=== PATIENT | female | born 1960 | race Caucasian/White ===

== ENCOUNTER → 2017-10-09 10:49 | Outpatient (CLI) | payer MEDICAID, SELFPAY ==
--- NOTE | 2017-10-09 10:55 | CA_ITS ---
PROCEDURE: 2-D M-mode and color Doppler study INDICATIONS FOR THE TEST: Chest pain COPD Heart Murmur Tobacco Smoking Palpitations Fatigue Syncope EdemaX HypertensionXDiabetes Mellitus Rheumatic Fever SOB GILES Obesity Hyperlipidemia Family History HD Additional History KNOWN BICUSPID AV,MVP PATIENT INFORMATION HEIGHT: 63 WEIGHT:163 GENDER: Female B/P:170/96 2-D/M-MODE INTERPRETATION: 2-D MEASUREMENTS OBSERVED VALUES IN CMS Right Ventricular Dimension (RVDd) 2.9 Interventricular Septum (Thickness)(IVsd) .9 Left Ventricular Internal Dimensions(LVIDd) 5.0 Left Ventricular Posterior Wall (Thickness)(LVPWd) 1.1 Aortic Root 2.9 Aortic Cusp Separation 2.1 Left Atrial Dimensions (LAD) 2.9 2D 1. Left atrium is mildly enlarged, left ventricle is normal size, there is mild concentric left ventricular hypertrophy, visually estimated ejection fraction 55% with no obvious regional wall motion abnormality. 2. The right atrium and right ventricle are mildly enlarged with normal contractility. 3. The aortic valve is bicuspid. 4. The mitral valve leaflets are mildly myxomatous, there is mild prolapse of both anterior and posterior mitral leaflet. 5. The tricuspid valve is grossly normal. 6. No significant pericardial effusion noted. 7. The pulmonic valve is poorly visualized. DOPPLER INTERROGATION: Doppler interrogation of the aortic, mitral and tricuspid valvular presence of mild mitral and tricuspid regurgitation, grade 1 diastolic dysfunction seen, calculated right ventricular systolic pressure is 45 to 50 mmHg consistent with moderate pulmonary hypertension, tissue Doppler is not indicated of raised left atrial pressure. CONCLUSION: 1. Mildly enlarged left atrium, normal left ventricular size, mild concentric left ventricular hypertrophy, visually estimated ejection fraction 55% with no obvious regional wall motion abnormality, grade 1 diastolic dysfunction seen with tissue Doppler evidence of raised left atrial pressure. 2. 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 3. Mildly enlarged right ventricle with normal contractility. 4. Mild tricuspid regurgitation calculated right ventricular systolic pressure approximately 45 to 50 mmHg consistent with the moderate pulmonary hypertension. 5. No significant pericardial effusion noted.
== END ==
PROVIDERS: Family Provider Family Medicine; PCP Family Medicine; Visit Provider Family Medicine
DX: Q23.1 Congenital insufficiency of aortic valve (principal); I34.1 Nonrheumatic mitral (valve) prolapse; R60.0 Localized edema
CPT/HCPCS: 93306

== ENCOUNTER → 2018-01-22 09:52 | Outpatient (CLI) | payer MEDICAID, SELFPAY ==
--- NOTE | 2018-01-22 10:13 | XR_ITS ---
XR DEXA axial skeleton HISTORY: ITS.REASON: LOW BACK PAIN,H/O FX,SPINAL STENOSIS ORDERING PHYSICIAN: Aminta Parker MD PATIENT AGE: 57 years FINDINGS: The BMD measured at the Right femoral neck is 0.838 g/cm squared with a T score of -1.4. This is considered Osteopenic according to the World Health Organization criteria. Fracture risk is Moderate. Treatment is advised. IMPRESSION: Osteopenia with moderate fracture risk. Treatment recommended. Recommend follow up exam january 2020
== END ==
PROVIDERS: Family Provider Family Medicine; PCP Family Medicine; Visit Provider Family Medicine
DX: M54.5 Low back pain (principal)
CPT/HCPCS: 77080

== ENCOUNTER → 2018-08-09 16:43 | Outpatient (CLI) | payer MEDICAID, SELFPAY ==
--- NOTE | 2018-08-09 16:53 | XR_ITS ---
EXAM: XR lumbar spine min 4V HISTORY: ITS.REASON: ACUTE MIDLINE LOW BACK PAIN WITH RIGHT SIDED SCIATICA ORDERING PHYSICIAN: TANNER Whaley PATIENT AGE: 58 years COMPARISON: None FINDINGS: There is mild degenerative disc disease at L4-L5 with 5 mm anterolisthesis of L4. No fracture or dislocation. No lytic or blastic change. Small calcific density is present superior to the L4 facet projecting within the foramen on the lateral view. IMPRESSION: Degenerative disc disease L4-L5 with 5 mm spondylolisthesis of L4 as described above. The degenerative disc disease may be slightly worse compared to the previous exam. Indeterminate calcification overlying the foramen at L4-L5 which may be better evaluated with CT or MRI
== END ==
PROVIDERS: PCP Family Medicine; Visit Provider Physician Assistant
DX: M54.41 Lumbago with sciatica, right side (principal)
CPT/HCPCS: 72110

== ENCOUNTER → 2018-08-22 07:36 | Outpatient (CLI) | payer MEDICAID, SELFPAY ==
--- NOTE | 2018-08-22 08:01 | MR_ITS ---
MR lumbar spine wo con, MR 3-d myelogram/MRCP HISTORY: PT states low back pain X years. Pain has gotten worse. Bilateral leg pain, LT leg numbness and trouble lifting leg. ITS.REASON: ACUTE MIDLINE LOW BACK PAIN W/RIGHT SIDE SCIATICA ORDERING PHYSICIAN: Aminta Parker MD PATIENT AGE: 58 years Comparison: X-RAY 08/09/18. MRI 07/26/16 TECHNIQUE: Standard multiplanar multiecho sequences are performed without contrast. 3-D MIP and myelographic images are also rendered and reviewed FINDINGS: The spinal cord ends at the T12-L1 level. T11-T12, T12-L1, L1-L2, L2-L3, and L3-L4 have an unremarkable appearance. There is mild anterolisthesis of L4 on L5 of 5 mm with a prominent concentric bulging disc with facet and ligamentum flavum hypertrophy with moderate to severe bilateral foraminal narrowing right greater than left. There is facet hypertrophic change with a small amount fluid in the facet joints with moderate bilateral lateral recess narrowing. There is a small broad-based central disc herniation with superior extrusion which is smaller on today's study. The previously noted extruded disc on the left is less apparent on today's exam. There is canal stenosis of 8 mm along with bilateral lateral recess narrowing. L5-S1: Unremarkable. IMPRESSION: Mild anterolisthesis of L4 on L5 of 5 mm with a prominent concentric bulging disc with facet and ligamentum flavum hypertrophy with moderate to severe bilateral foraminal narrowing right greater than left. There is facet hypertrophic change with a small amount fluid in the facet joints with moderate bilateral lateral recess narrowing. There is a small broad-based central disc herniation with superior extrusion which is smaller on today's study. The previously noted extruded disc on the left is less apparent on today's exam. There is canal stenosis of 8 mm along with bilateral lateral recess narrowing.
== END ==
PROVIDERS: PCP Family Medicine; Visit Provider Family Medicine
DX: M54.41 Lumbago with sciatica, right side (principal)
CPT/HCPCS: 72148; 76376

== ENCOUNTER → 2019-01-16 12:05 | Outpatient (CLI) | payer MEDICAID, SELFPAY ==
--- NOTE | 2019-01-16 12:13 | XR_ITS ---
XR sinus min 3V CLINICAL INDICATION: Right-sided facial numbness ITS.REASON: ALLERGIC RHINITIS ORDERING PHYSICIAN: Kimmy Carvalho APRN PATIENT AGE: 58 years Comparison: None FINDINGS: No sinus air-fluid level or significant mucosal thickening. No bony abnormalities apparent. IMPRESSION: Negative paranasal sinuses
== END ==
PROVIDERS: PCP Family Medicine; Visit Provider Nurse Practitioner Family
DX: J30.9 Allergic rhinitis, unspecified (principal)
CPT/HCPCS: 70220

== ENCOUNTER → 2019-11-15 10:51 | Outpatient (CLI) | payer OTHER, SELFPAY ==
[2019-11-15 10:57] LABS: Adenovirus F 40/41, stool Not Detected (NotDetected); Astrovirus Not Detected (NotDetected); Campylobacter Not Detected (NotDetected); Clostridium Difficile A/B, PCR Not Detected (NotDetected); Cryptosporidium Not Detected (NotDetected); Cyclospora Cayetanesis Not Detected (NotDetected); Entamoeba histolytica Not Detected (NotDetected); Enteroaggregative E coli Not Detected (NotDetected); Enteropathogenic E coli Not Detected (NotDetected); Enterotoxigenic E coli Not Detected (NotDetected); Giardia lamblia Not Detected (NotDetected); Norovirus Not Detected (NotDetected); Plesimonas Shigalloides, PCR Not Detected (NotDetected); Rotavirus A Not Detected (NotDetected); Salmonella, PCR Not Detected (NotDetected); Sapovirus Not Detected (NotDetected); Shiga-like toxin E coli Not Detected (NotDetected); Shigella Enterovasive E coli Not Detected (NotDetected); Vibrio Cholerae Not Detected (NotDetected); Vibrio, PCR Not Detected (NotDetected); Yersinia Entercolitica, PCR Not Detected (NotDetected)
== END ==
PROVIDERS: Visit Provider Physician Assistant
DX: R19.7 Diarrhea, unspecified (principal)
CPT/HCPCS: 87507

== ENCOUNTER → 2020-08-13 11:04 | Outpatient (CLI) | payer OTHER, SELFPAY ==
[2020-08-13 14:22] LABS: Basophils # 0.1 K/mm3 (0-0.2); Basophils % 0.7 % (0.1-2.0); Eosinophils # 0.1 K/mm3 (0.0-0.4); Eosinophils % 1.1 % (0.1-12.0); Hematocrit 43.4 % (37.0-47.0); Hemoglobin 13.7 g/dL (12.2-16.2); Lymphocytes # 4.2 K/mm3 (0.7-4.5); Lymphocytes % 57.3 % (10-50); Mean Corpuscular HGB Conc 31.6 g/dL (31.8-35.4); Mean Corpuscular Hemoglobin 30.1 pg (27.0-31.2); Mean Corpuscular Volume 95.2 fl (81-99); Mean Platelet Volume 10.2 fl (7.4-10.4); Monocytes # 0.5 K/mm3 (0.1-1.0); Monocytes % 6.5 % (1.7-9.3); Neutrophils # 2.5 K/mm3 (1.8-7.8); Neutrophils % 34.4 % (37.0-80.0); Platelet Count 324 K/mm3 (142-424); Red Blood Count 4.56 M/mm3 (4.20-5.40); Red Cell Distribution Width 15.1 % (11.5-17.5); White Blood Count 7.4 K/mm3 (4.8-10.8)
[2020-08-13 14:23] LABS: MANUAL DIFFERENTIAL MANUAL DIFFERENTIAL (MANUAL DIFF)
[2020-08-13 16:44] LABS: Lymphocytes % 56 % (10-50); Monocytes % 6 % (2-9); Neutrophils % 38 % (42-76); Platelet Estimate Normal; RBC Morphology Normal; Total Cells Counted 100
[2020-08-14 13:34] LABS: Covid-19 Nasal PCR Sendout Lex NOT DETECTED
== END ==
PROVIDERS: PCP Physician Assistant; Visit Provider Physician Assistant
DX: Z03.818 Encounter for observation for suspected exposure to other biological agents ruled out (principal)
CPT/HCPCS: 36415; 85007; 85025; U0004

== ENCOUNTER → 2020-11-12 10:12 | Outpatient (CLI) | payer OTHER, SELFPAY ==
--- NOTE | 2020-11-12 10:18 | MM_ITS ---
PROCEDURE: MM DIG SCREENING MAMM BI W/CAD Digital Breast Tomosynthesis Included CLINICAL INDICATION: SCREENING There is a history of breast cancer in the patient's mother diagnosed in 30s. The patient currently is on estrogen. COMPARISON: MG DMSB DIG MAMM-SCREEN [place] from 05/19/2014 MG DMSB DIG MAMM-SCREEN [place] from 07/06/2015 MG DMSB DIG MAMM-SCREEN [place] W/CAD from 03/23/2017 TECHNIQUE: Standard CC and MLO images and 3D Tomosynthesis was obtained. R2 CAD reviewed. FINDINGS: Moderate scattered fibroglandular densities are seen in both breasts and the findings are bilateral and symmetrical. There is a stable small asymmetric density central portion right breast unchanged from studies dating back to 05/19/2014. There is no suspicious lesion and no suspicious microcalcifications. IMPRESSION: Moderate breast density with no suspicious lesions seen BI-RAD Category: 1 Negative FOLLOW-UP: 1YR 1 Year Follow-up (A letter has been sent to the patient regarding results of the study.) Dictated by: Dr. Dayron Siu MD 11/17/2020 11:38 Dr. Dayron Siu MD in [place] 11/17/2020 11:38
[2020-11-12 12:25] LABS: Alanine Aminotransferase 11 U/L (12-78); Albumin Level 4.2 g/dl (3.5-5.0); Albumin/Globulin Ratio 1.4 (1.1-1.8); Alkaline Phosphatase 98 U/L (38-126); Anion Gap 13.2 mEq/L (5-15); Aspartate Amino Transferase 20 U/L (14-36); Bilirubin,Total 0.5 mg/dl (0.2-1.3); Blood Urea Nitrogen 10 mg/dl (7-17); Calcium 9.6 mg/dl (8.4-10.2); Carbon Dioxide 29 mmol/L (22.0-30.0); Chloride 97 mmol/L (98-107); Cholesterol 226 mg/dl (140-200); Estimated Glomerular Filt Rate 63 ml/min (>60); GFR (African American) 77 ML/MIN (>60); Glucose 98 mg/dl (74-100); HDL Cholesterol 76 mg/dl (40-60); Potassium 4.2 mmoL/L (3.5-5.1); Sodium 135 mmol/L (136-145); Total Protein,Serum 7.2 g/dl (6.3-8.2); Triglycerides 339 mg/dl (30-150); VLDL Cholesterol 68 mg/dL (0-40)
[2020-11-12 12:36] LABS: Direct LDL Cholesterol 102.89 mg/dL (100-129)
[2020-11-12 12:56] LABS: Thyroid Stimulating Hormone 1.31 uIU/mL (0.465-4.68)
== END ==
PROVIDERS: PCP Physician Assistant; Visit Provider Family Medicine
DX: Z12.31 Encounter for screening mammogram for malignant neoplasm of breast (principal); E03.9 Hypothyroidism, unspecified; I10 Essential (primary) hypertension
CPT/HCPCS: 36415; 77063; 77067; 80053; 80061; 84443

== ENCOUNTER 2021-01-07 19:35 | Emergency (ER) | payer OTHER, SELFPAY ==
[2021-01-07 19:36] VITALS: BP 186/98; PULSE 68; RESP 19; TEMP 36.9; O2SAT 99; BMI 29.5
--- NOTE | 2021-01-07 19:45 | ECG_ITS ---
APPROVED REPORT Exam: Resting ECG HR:67 bpm ECG Measurements Heart Rate 67 AXES AZ 176 P 57 QRSd 84 QRS 29 QT 404 T 25 QTc 426 Conclusion Normal sinus rhythm Nonspecific ST abnormality Abnormal ECG Electronically signed by : Yovany Gary, 01/08/2021 10:35:44
--- NOTE | 2021-01-07 19:45 | XR_ITS ---
PROCEDURE INFORMATION: Exam: XR Chest Exam date and time: 01/07/21 07:45 PM Age: 60 years old Clinical indication: Shortness of breath and other: Hypertension, frontal headache; Patient HX: Shortness of breath, high blood pressure. ; Additional info: SOA TECHNIQUE: Imaging protocol: XR of the chest. Views: 1 view. COMPARISON: No relevant prior studies available. FINDINGS: Lungs: Hyperexpanded. No consolidation. Pleural spaces: Unremarkable. No pleural effusion. No pneumothorax. Heart/Mediastinum: Unremarkable. No cardiomegaly. Bones/joints: Unremarkable. IMPRESSION: Hyperexpanded lungs without infiltrate.
--- NOTE | 2021-01-07 19:46 | CT_ITS ---
PROCEDURE INFORMATION: Exam: CT Angiography Neck With Contrast Exam date and time: 01/07/21 07:46 PM Age: 60 years old Clinical indication: Headache and other: Elevated BP; Patient HX: Frontal headache and elevated BP TECHNIQUE: Imaging protocol: Computed tomography angiography of the neck with contrast. 3D rendering (Not supervised by radiologist): MIP and/or 3D reconstructed images were created by the technologist. Radiation optimization: All CT scans at this facility use at least one of these dose optimization techniques: automated exposure control; mA and/or kV adjustment per patient size (includes targeted exams where dose is matched to clinical indication); or iterative reconstruction. Contrast material: ISOVUE 370; Contrast volume: 100 ml; Contrast route: INTRAVENOUS (IV); COMPARISON: CTAN CTA-NECK 02/19/16 01:25 PM FINDINGS: Right common carotid artery: No stenosis. No dissection or occlusion. Right internal carotid artery: No stenosis of the extracranial segment. No dissection or occlusion. Right external carotid artery: No occlusion or stenosis of the origin. Right vertebral artery: No stenosis. No dissection or occlusion. Left common carotid artery: No stenosis. No dissection or occlusion. Left internal carotid artery: No stenosis of the extracranial segment. No dissection or occlusion. Left external carotid artery: No occlusion or stenosis of the origin. Left vertebral artery: No stenosis. No dissection or occlusion. Bones/joints: No acute fracture. Soft tissues: Normal. No significant soft tissue swelling. IMPRESSION: No stenosis or occlusion. REFERENCES: NASCET CRITERIA. The degree of internal carotid artery stenosis is based on NASCET criteria. Normal is no stenosis. Mild is less than 50% stenosis. Moderate is 50-69% stenosis. Severe is 70% to 99% stenosis. Total occlusion is no detectable patent lumen.
--- NOTE | 2021-01-07 19:46 | CT_ITS ---
PROCEDURE INFORMATION: Exam: CT Head Without Contrast Exam date and time: 01/07/21 07:46 PM Age: 60 years old Clinical indication: Pain; Headache not specified; Patient HX: Headache and elevatd BP TECHNIQUE: Imaging protocol: Computed tomography of the head without contrast. Radiation optimization: All CT scans at this facility use at least one of these dose optimization techniques: automated exposure control; mA and/or kV adjustment per patient size (includes targeted exams where dose is matched to clinical indication); or iterative reconstruction. COMPARISON: DX (SKULL BOATENG, FACE, SKULL BOATENG) 01/16/19 12:17 PM FINDINGS: Brain: Normal. No hemorrhage. Unremarkable white matter. No mass effect. Cerebral ventricles: No ventriculomegaly. Bones/joints: Unremarkable. No acute fracture. Paranasal sinuses: Visualized sinuses are unremarkable. No fluid levels. Mastoid air cells: Visualized mastoid air cells are well aerated. Soft tissues: Unremarkable. IMPRESSION: No acute intracranial abnormality.
--- NOTE | 2021-01-07 19:46 | CT_ITS ---
PROCEDURE INFORMATION: Exam: CT Angiography Head With Contrast, Arteriography Exam date and time: 01/07/21 07:46 PM Age: 60 years old Clinical indication: Headache and other: Elevated BP; Patient HX: Elev BP and frontal headache TECHNIQUE: Imaging protocol: Computed tomography angiography of the head with contrast. Exam focused on the arteries. 3D rendering (Not supervised by radiologist): MIP and/or 3D reconstructed images were created by the technologist. Radiation optimization: All CT scans at this facility use at least one of these dose optimization techniques: automated exposure control; mA and/or kV adjustment per patient size (includes targeted exams where dose is matched to clinical indication); or iterative reconstruction. Contrast material: ISOVUE 370; Contrast volume: 100 ml; Contrast route: INTRAVENOUS (IV); COMPARISON: DX (SKULL BOATENG, FACE, SKULL BOATENG) 01/16/19 12:17 PM FINDINGS: ANTERIOR CIRCULATION: Right internal carotid artery: Unremarkable. Intracranial segment is patent with no significant stenosis. No aneurysm. Right middle cerebral artery: Unremarkable. No occlusion or significant stenosis. No aneurysm. Right anterior cerebral artery: Unremarkable. No occlusion or significant stenosis. No aneurysm. Left internal carotid artery: Unremarkable. Intracranial segment is patent with no significant stenosis. No aneurysm. Left middle cerebral artery: Unremarkable. No occlusion or significant stenosis. No aneurysm. Left anterior cerebral artery: Unremarkable. No occlusion or significant stenosis. No aneurysm. POSTERIOR CIRCULATION: Right vertebral artery: Unremarkable. No occlusion or significant stenosis. No aneurysm. Left vertebral artery: Unremarkable. No occlusion or significant stenosis. No aneurysm. Basilar artery: Unremarkable. No occlusion or significant stenosis. No aneurysm. Right posterior cerebral artery: Unremarkable. No occlusion or significant stenosis. No aneurysm. Left posterior cerebral artery: Unremarkable. No occlusion or significant stenosis. No aneurysm. Brain: No definite mass, mass effect, or midline shift. Cerebral ventricles: No ventriculomegaly. Bones/joints: Unremarkable. No acute fracture. Soft tissues: Unremarkable. IMPRESSION: No large vessel stenosis or occlusion.
--- NOTE | 2021-01-07 19:47 | HMH.EDGENADL ---
ED Disposition Condition on Discharge: Good - Critical Care Critical Care Time: No <Chaitanya King - Last Filed: 01/07/21 19:47> <Rakesh De Jesus - Last Filed: 01/07/21 21:39> Clinical Impression: Pre-syncope Head ache Qualifiers: Headache type: unspecified Headache chronicity pattern: acute headache Intractability: not intractable Qualified Code(s): R51.9 - Headache, unspecified Hypertension Qualifiers: Hypertension type: essential hypertension Qualified Code(s): I10 - Essential (primary) hypertension Disposition: Home, Self-Care Instructions: Dizziness, Nonvertigo Additional Instructions: call pcp in am Referrals: Juancho Chavez MD [Primary Care Provider] - Attestation: On 01/07/21, the high probability of a clinically significant, sudden or life threatening deterioration of the following system(s) required my full and direct attention, intervention and personal management. The time I documented below is in addition to time spent performing reported procedures but includes the following listed in this critical care notation. Medical Decision Making - Medical Records Medical records reviewed: Yes: I reviewed the patient's medical records. - Darryl Inquiry Pt receiving controlled substance: No <Chaitanya King - Last Filed: 01/07/21 19:47> - Lab Data Lab results reviewed: Yes: I reviewed the patient's lab results. Result diagrams: 01/07/21 20:00 01/07/21 20:00 - Radiology Data #1 Image(s): Chest Image Reviewed: Yes I reviewed the patient's radiology image Preliminary Findings: Normal/NAD - CT Data CT Scan: Head, Other (ct head/neck) Time Received: 21:39 - ECG Data Tracing #1 Normal Sinus Rhythm: Yes Ischemic changes: non-specific ST-T wave changes <Rakesh De Jesus - Last Filed: 01/07/21 21:39> Vital Signs: 01/07/21 19:36 01/07/21 20:02 01/07/21 20:33 Temperature 98.4 F Temperature Source Oral Pulse Rate 63 Pulse Rate [Right] 68 Respiratory Rate 19 17 17 Blood Pressure 185/85 H 185/85 H Blood Pressure [Right Arm] 186/98 H Blood Pressure Mean 118 Blood Pressure Mean [Right Arm] 127 Blood Pressure Source Automatic Cuff Blood Pressure Source [Right Arm] Manual Cuff/ Auscultation Blood Pressure Position [Right Arm] Supine 02 Sat by Pulse Oximetry 99 100 100 Oxygen Delivery Method Room Air Room Air Room Air 01/07/21 21:12 01/07/21 21:30 Temperature Temperature Source Pulse Rate 67 63 Pulse Rate [Right] Respiratory Rate 18 14 Blood Pressure 144/77 H 144/60 H Blood Pressure [Right Arm] Blood Pressure Mean 99 88 Blood Pressure Mean [Right Arm] Blood Pressure Source Blood Pressure Source [Right Arm] Blood Pressure Position [Right Arm] 02 Sat by Pulse Oximetry 100 98 Oxygen Delivery Method Room Air Room Air - Lab Data Lab Results 01/07/21 20:00: WBC 11.9 H, RBC 4.12 L, Hgb 12.4, Hct 37.2, MCV 90.2, MCH 30.0, MCHC 33.3, RDW 14.8, Plt Count 294, MPV 9.1, Neut % (Auto) 47.3, Lymph % (Auto) 45.8, Phelps % (Auto) 4.0, Eos % (Auto) 2.1, Baso % (Auto) 0.8, Neut # (Auto) 5.6, Lymph # (Auto) 5.5 H, Phelps # (Auto) 0.5, Eos # (Auto) 0.3, Baso # (Auto) 0.1 01/07/21 20:00: Sodium 134 L, Potassium 3.5, Chloride 97 L, Carbon Dioxide 26, Anion Gap 14.5, BUN 11, Creatinine 0.90, Estimated Creat Clear 70, Estimated GFR 63, Est GFR ( Amer) 77, Glucose 103 H, Calcium 9.2, Magnesium 1.6, Troponin I < 0.01, C-Reactive Protein 17.5 H 01/07/21 20:00: Procalcitonin 0.030 01/07/21 20:25: Urine Color Yellow, Urine Appearance Clear, Urine pH 6.0, Ur Specific [place] 1.015, Urine Protein 1+, Urine Glucose (UA) Negative, Urine Ketones Negative, Urine Blood Trace-i, Urine Nitrate Negative, Urine Bilirubin Negative, Urine Urobilinogen 0.2, Ur Leukocyte Esterase Negative, Urine RBC None, Urine WBC 3-5, Ur Squamous Epith Cells 3-5, Urine Bacteria Trace 01/07/21 20:25: ESR 27 Orders (Tests/Meds): ED MEDICATIONS Discontinued Medications
[2021-01-07 20:02] VITALS: BP 185/85; PULSE 63; RESP 17; O2SAT 100
[2021-01-07 20:08] LABS: Basophils # 0.1 K/mm3 (0-0.2); Basophils % 0.8 % (0.1-2.0); Eosinophils # 0.3 K/mm3 (0.0-0.4); Eosinophils % 2.1 % (0.1-12.0); Hematocrit 37.2 % (37.0-47.0); Hemoglobin 12.4 g/dL (12.2-16.2); Lymphocytes # 5.5 K/mm3 (0.7-4.5); Lymphocytes % 45.8 % (10-50); Mean Corpuscular HGB Conc 33.3 g/dL (31.8-35.4); Mean Corpuscular Volume 90.2 fl (81-99); Mean Platelet Volume 9.1 fl (7.4-10.4); Monocytes # 0.5 K/mm3 (0.1-1.0); Neutrophils # 5.6 K/mm3 (1.8-7.8); Neutrophils % 47.3 % (37.0-80.0); Platelet Count 294 K/mm3 (142-424); Red Blood Count 4.12 M/mm3 (4.20-5.40); Red Cell Distribution Width 14.8 % (11.5-17.5); White Blood Count 11.9 K/mm3 (4.8-10.8)
[2021-01-07 20:11] LABS: Chloride 97 mmol/L (98-107); Sodium 134 mmol/L (136-145)
[2021-01-07 20:12] LABS: Potassium 3.5 mmoL/L (3.5-5.1)
[2021-01-07 20:14] LABS: Anion Gap 14.5 mEq/L (5-15); Blood Urea Nitrogen 11 mg/dl (7-17); Carbon Dioxide 26 mmol/L (22.0-30.0); Creatinine Clearance Estimated 70 mL/min (50-200); Estimated Glomerular Filt Rate 63 ml/min (>60); GFR (African American) 77 ML/MIN (>60)
[2021-01-07 20:15] LABS: Calcium 9.2 mg/dl (8.4-10.2); Glucose 103 mg/dl (74-100); Magnesium 1.6 mg/dl (1.6-2.3)
[2021-01-07 20:20] LABS: C-Reactive Protein 17.5 mg/L (0-4)
[2021-01-07 20:29] LABS: Troponin I < 0.01 ng/ml (0.00-0.034)
[2021-01-07 20:33] VITALS: BP 185/85; RESP 17; O2SAT 100
[2021-01-07 20:39] LABS: Microscopic, Urine URINE MICROSCOPIC (MICROSCOPIC)
[2021-01-07 20:40] LABS: Appearance,Urine CLEAR (Clear); Bilirubin,Urine Negative (Negative); Blood, Urine TRACE-I (Negative); Color,Urine YELLOW (Yellow); Glucose,Urine (UA) Negative (Negative); Ketones,Urine Negative (Negative); Leukocyte Esterase,Urine Negative (Negative); Nitrate,Urine Negative (Negative); Protein,Urine 1+ (Negative); Specific Gravity, Urine 1.015 (1.005-1.030); Urobilinogen,Urine 0.2 EU/dl (0.2)
[2021-01-07 20:59] LABS: Bacteria,Urine Trace /lpf
[2021-01-07 21:03] LABS: Erythrocyte Sedimentation Rate 27 mm/hr (0-30)
--- NOTE | 2021-01-07 21:07 | PC.NURSE ---
Pt returned from CT
[2021-01-07 21:12] VITALS: BP 144/77; PULSE 67; RESP 18; O2SAT 100
[2021-01-07 21:30] VITALS: BP 144/60; PULSE 63; RESP 14; O2SAT 98
[2021-01-07 21:41] VITALS: BP 144/60; PULSE 62; RESP 17; TEMP 36.8; O2SAT 99
== END 2021-01-07 21:50 | disposition home or self-care (01) ==
PROVIDERS: Emergency Medicine; Emergency Provider Emergency Medicine; PCP Family Medicine
DX: I16.0 Hypertensive urgency (principal); R55 Syncope and collapse; R29.700 NIHSS score 0; Z79.899 Other long term (current) drug therapy
CPT/HCPCS: 70450; 70496; 70498; 71045; 80048; 81001; 83735; 84145; 84484; 85025; 85651; 86140; 93005; 99283; Q9967

== ENCOUNTER → 2021-02-01 12:29 | Outpatient (CLI) | payer OTHER, SELFPAY ==
[2021-02-01 13:18] LABS: Adenovirus,PCR Not Detected (NotDetected); Bordetella Pertussis Not Detected (NotDetected); Chlamydophila Pneumoniae, PCR Not Detected (NotDetected); Coronavirus 19, PCR Not Detected (NotDetected); Coronavirus 229E Not Detected (NotDetected); Coronavirus NL63 Not Detected (NotDetected); Coronavirus OC43 Not Detected (NotDetected); Coronovirus HKU1,PCR Not Detected (NotDetected); Human Metapneumovirus Not Detected (NotDetected); Influenza A, PCR Not Detected (NotDetected); Influenza AH1, 2009 Not Detected (NotDetected); Influenza AH1, PCR Not Detected (NotDetected); Influenza AH3,PCR Not Detected (NotDetected); Influenza B, PCR Not Detected (NotDetected); Mycoplasma Pneumoniae, PCR Not Detected (NotDetected); Parainfluenza 1, PCR Not Detected (NotDetected); Parainfluenza 2, PCR Not Detected (NotDetected); Parainfluenza 3, PCR Not Detected (NotDetected); Parainfluenza 4, PCR Not Detected (NotDetected); Respiratory Syncytial Virus Not Detected (NotDetected); Rhinovirus/Enterovirus Not Detected (NotDetected)
[2021-02-01 13:31] LABS: Basophils # 0.1 K/mm3 (0-0.2); Basophils % 0.6 % (0.1-2.0); Eosinophils # 0.3 K/mm3 (0.0-0.4); Eosinophils % 2.2 % (0.1-12.0); Hematocrit 35.3 % (37.0-47.0); Lymphocytes # 5.5 K/mm3 (0.7-4.5); Lymphocytes % 44.2 % (10-50); Mean Corpuscular HGB Conc 33.9 g/dL (31.8-35.4); Mean Corpuscular Hemoglobin 29.9 pg (27.0-31.2); Mean Corpuscular Volume 88.1 fl (81-99); Mean Platelet Volume 9.2 fl (7.4-10.4); Monocytes # 0.5 K/mm3 (0.1-1.0); Monocytes % 3.8 % (1.7-9.3); Neutrophils # 6.2 K/mm3 (1.8-7.8); Neutrophils % 49.2 % (37.0-80.0); Platelet Count 304 K/mm3 (142-424); Red Cell Distribution Width 14.3 % (11.5-17.5); White Blood Count 12.5 K/mm3 (4.8-10.8)
== END ==
PROVIDERS: PCP Family Medicine; Visit Provider Nurse Practitioner Family
DX: Z20.822 Contact with and (suspected) exposure to COVID-19 (principal)
CPT/HCPCS: 36415; 85025; 87581; 87633; 87798

== ENCOUNTER → 2021-04-22 09:07 | Outpatient (CLI) | payer OTHER, SELFPAY ==
[2021-04-22 10:05] LABS: Chloride 97 mmol/L (98-107); Potassium 4.4 mmoL/L (3.5-5.1); Sodium 135 mmol/L (136-145)
[2021-04-22 10:07] LABS: Alanine Aminotransferase 11 U/L (12-78); Aspartate Amino Transferase 19 U/L (14-36); Blood Urea Nitrogen 12 mg/dl (7-17); Estimated Glomerular Filt Rate 63 ml/min (>60); GFR (African American) 77 ML/MIN (>60)
[2021-04-22 10:08] LABS: Albumin Level 4.4 g/dl (3.5-5.0); Albumin/Globulin Ratio 1.4 (1.1-1.8); Alkaline Phosphatase 106 U/L (38-126); Anion Gap 13.4 mEq/L (5-15); Bilirubin,Total 0.5 mg/dl (0.2-1.3); Calcium 9.3 mg/dl (8.4-10.2); Carbon Dioxide 29 mmol/L (22.0-30.0); Chol/HDL Ratio 2.7 (1-3.5); Cholesterol 227 mg/dl (140-200); Globulin 3.1 g/dL (1.3-3.2); Glucose 94 mg/dl (74-100); HDL Cholesterol 85 mg/dl (40-60); Total Protein,Serum 7.5 g/dl (6.3-8.2); Triglycerides 324 mg/dl (30-150); VLDL Cholesterol 65 mg/dL (0-40)
[2021-04-22 10:38] LABS: Thyroid Stimulating Hormone 1.77 uIU/mL (0.465-4.68)
== END ==
PROVIDERS: Visit Provider Family Medicine
DX: I10 Essential (primary) hypertension (principal); E03.9 Hypothyroidism, unspecified; E78.5 Hyperlipidemia, unspecified
CPT/HCPCS: 36415; 80053; 80061; 84443

== ENCOUNTER → 2021-09-24 10:59 | Outpatient (CLI) | payer OTHER, SELFPAY ==
[2021-09-24 14:21] LABS: Adenovirus,PCR Not Detected (NotDetected); Bordetella Pertussis Not Detected (NotDetected); Chlamydophila Pneumoniae, PCR Not Detected (NotDetected); Coronavirus 229E Not Detected (NotDetected); Coronavirus NL63 Not Detected (NotDetected); Coronavirus OC43 Not Detected (NotDetected); Coronovirus HKU1,PCR Not Detected (NotDetected); Human Metapneumovirus Not Detected (NotDetected); Influenza A, PCR Not Detected (NotDetected); Influenza AH1, 2009 Not Detected (NotDetected); Influenza AH1, PCR Not Detected (NotDetected); Influenza AH3,PCR Not Detected (NotDetected); Influenza B, PCR Not Detected (NotDetected); Mycoplasma Pneumoniae, PCR Not Detected (NotDetected); Parainfluenza 1, PCR Not Detected (NotDetected); Parainfluenza 2, PCR Not Detected (NotDetected); Parainfluenza 3, PCR Not Detected (NotDetected); Parainfluenza 4, PCR Not Detected (NotDetected); Respiratory Syncytial Virus Not Detected (NotDetected); Rhinovirus/Enterovirus Not Detected (NotDetected)
[2021-09-24 14:35] LABS: Basophils # 0.1 K/mm3 (0-0.2); Eosinophils # 0.2 K/mm3 (0.0-0.4); Eosinophils % 1.5 % (0.1-12.0); Hematocrit 37.5 % (37.0-47.0); Hemoglobin 12.2 g/dL (12.2-16.2); Lymphocytes # 5.2 K/mm3 (0.7-4.5); Lymphocytes % 49.7 % (10-50); Mean Corpuscular HGB Conc 32.5 g/dL (31.8-35.4); Mean Corpuscular Hemoglobin 30.1 pg (27.0-31.2); Mean Corpuscular Volume 92.4 fl (81-99); Mean Platelet Volume 9.8 fl (7.4-10.4); Monocytes # 0.7 K/mm3 (0.1-1.0); Neutrophils # 4.3 K/mm3 (1.8-7.8); Neutrophils % 40.8 % (37.0-80.0); Platelet Count 312 K/mm3 (142-424); Red Blood Count 4.05 M/mm3 (4.20-5.40); Red Cell Distribution Width 15.1 % (11.5-17.5); White Blood Count 10.4 K/mm3 (4.8-10.8)
[2021-09-24 16:53] LABS: Coronavirus 19, PCR Detected (NotDetected)
== END ==
PROVIDERS: PCP Family Medicine; Visit Provider Physician Assistant
DX: U07.1 COVID-19 (principal)
CPT/HCPCS: 36415; 85025; 87581; 87632; 87798; C9803; U0003; U0005

== ENCOUNTER → 2021-11-12 09:17 | Outpatient (CLI) | payer OTHER, SELFPAY ==
--- NOTE | 2021-11-12 09:20 | XR_ITS ---
FINAL REPORT TECHNIQUE: Bone densitometry calculations of the lumbar spine and left hip were obtained. CLINICAL HISTORY: osteopenia FINDINGS: Using L1-4, the bone mineral density of the spine is 1.262 g/cm2, corresponding to T-score of 2.0. Using the left hip, the bone mineral density of the femoral neck is 0.802 g/cm2, corresponding to a T-score of -0.4. Using the right hip, the bone mineral density of the femoral neck is 0.744 g/cm2, corresponding to a T-score of -0.9. IMPRESSION: Normal bone mineral density of the lumbar spine and both hips. Reviewed, Interpreted and Dictated by Michael Alexander III, MD Transcribed by Carly George Authenticated by Michael Alexander III, MD on 11/12/2021 12:18:[address] [facility]
--- NOTE | 2021-11-12 11:14 | CA_ITS ---
APPROVED REPORT EXAM: Comprehensive 2D, Doppler, and color-flow Echocardiogram Database Development Project Manager: Robyn Buchanan, RT(R) Ht: 5 ft 3 in Wt: 167lbs BSA: 1.79 BP: 132/84 mmHg Indications: known bicuspid AV, murmur, palpitations, HTN, SOB, hx of CP 2D Dimensions LVOT 2.01 cm (M/F) 1.5-2.5 M-Mode Dimensions RVDd 2.61 cm (0.9-2.6) LA Diam 2.70 cm (1.9-4.0) LVDd 4.70 cm (3.5-5.7) Ao Diam 2.66 cm (2.0-3.7) LVDs 3.26 cm (3.5-5.7) IVSd 0.84 cm (0.6-1.1) PWd 1.04 cm (0.6-1.1) EF (Teich) 58.20% FS 30.60% EDV (Teich) 102.40 mL ESV (Teich) 42.80 mL LV Diastology E Decel Time 190.00 (160-240 msec) E/A Ratio 0.7 MED E' 5.60 (< 7 cm/sec) E'/MED E' Ratio 10.41 (>14) LAT E' 7.20 (<10 cm/sec) E/LAT E' Ratio 8.10 (>14) Aortic Valve LVOT Max 96.00 (70-110 cm/s) LVOT VTI 19.36 cm AoV Peak Patrick. 175.00 (50-130 cm/s) AO Peak GR. 12.30 mmHg AO Mean GR. 6.00 (<5 mmHg) AO VTI 34.02 (18-25 cm) JOSH (VTI) 1.81 (2.5-4.5 cm2) Mitral Valve MV E Max Patrick. 58.00 (40-130 cm/s) MV A Velocity 85.00 (40-130 cm/s) E/A Ratio 0.68 MV Decel. Time 190.00 (160-240 ms) MV PHT 56.00 ms Tricuspid Valve TR P. Velocity 266.00 cm/s RAP Estimate 15.00 mmHg RVSP 43.20 mmHg Left Ventricle Left atrium is mildly enlarged, left ventricle is normal size, mild concentric left ventricular hypertrophy, visually estimated ejection fraction 55% with no regional wall motion abnormality, grade 1 diastolic dysfunction seen without tissue Doppler evidence of raise left atrial pressure. Right Ventricle Right atrium and right ventricle are normal size and contractility. Aortic Valve Aortic valve is likely bicuspid, aortic root is normal size. There is no aortic stenosis or aortic insufficiency. Mitral Valve Mitral valve grossly normal, there is trace mitral regurgitation. Tricuspid Valve Tricuspid grossly normal, there is trace tricuspid regurgitation, tricuspid regurgitation jet velocity is inadequate for calculation of the right ventricular systolic pressure. Pulmonic Valve Pulmonic valve is poorly visualized. Great Vessels Aortic root is normal size. Inferior vena cava normal size with normal inspiratory collapse. Pericardium No significant pericardial effusion noted. Conclusion 1. Mildly enlarged left atrium, normal left ventricular size, mild concentric left ventricular hypertrophy, visually estimated ejection fraction 55% with no regional wall motion abnormality, grade 1 diastolic dysfunction seen without tissue Doppler evidence of raise left atrial pressure. 2. Likely bicuspid aortic valve without aortic stenosis or aortic insufficiency. 3. Trace mitral and tricuspid regurgitation. 4. No significant pericardial effusion noted. 5. Inferior vena cava is normal size with normal inspiratory collapse. Electronically signed by : Rosendo Barksdale MD 11/12/2021 12:20:53
== END ==
PROVIDERS: PCP Family Medicine; Visit Provider Family Medicine
DX: Z78.0 Asymptomatic menopausal state (principal); Q23.1 Congenital insufficiency of aortic valve
CPT/HCPCS: 77080; 93306

== ENCOUNTER → 2022-05-06 12:48 | Outpatient (CLI) | payer OTHER, SELFPAY ==
--- NOTE | 2022-05-06 12:58 | MM_ITS ---
PROCEDURE INFORMATION: Exam: MG Bilateral Screening 3D Mammography Exam date and time: 05/06/2022 12:56 PM Age: 62 years old Clinical indication: Screening examination. Her mother had breast cancer in her 30s. TECHNIQUE: Imaging protocol: Bilateral Screening tomosynthesis and 2D mammography including computer-aided detection (CAD) when performed. COMPARISON: 1. MG MM DIG SCREENING MAMM BI W/CAD 11/12/2020 10:29 AM 2. MG DMSB DIG MAMM-SCREEN [place] W/CAD 03/23/2017 4:32 PM 3. MG DMSB DIG MAMM-SCREEN [place] 07/06/2015 11:25 AM 4. MG DMSB DIG MAMM-SCREEN [place] 05/19/2014 10:30 AM FINDINGS: MAMMOGRAPHY: Breast composition: There are scattered areas of fibroglandular density. Mass: No suspicious mass. Architectural distortion: None. Calcifications: No suspicious calcifications. Asymmetric density: None. Skin thickening: None. Axillary adenopathy: None. IMPRESSION: No mammographic evidence of malignancy. Annual screening is recommended unless otherwise clinically indicated. ASSESSMENT: BI-RADS Category 1: Negative
[2022-05-06 15:37] LABS: Alanine Aminotransferase 15 U/L (12-78); Albumin/Globulin Ratio 1.4 (1.1-1.8); Alkaline Phosphatase 106 U/L (38-126); Anion Gap 11.2 mEq/L (5-15); Aspartate Amino Transferase 22 U/L (14-36); Bilirubin,Total 0.3 mg/dl (0.2-1.3); Blood Urea Nitrogen 13 mg/dl (7-17); Calcium 9.2 mg/dl (8.4-10.2); Carbon Dioxide 28 mmol/L (22.0-30.0); Chloride 97 mmol/L (98-107); Chol/HDL Ratio 3.5 (1-3.5); Cholesterol 242 mg/dl (140-200); Estimated Glomerular Filt Rate 56 ml/min (>60); GFR (African American) 68 ML/MIN (>60); Globulin 2.9 g/dL (1.3-3.2); Glucose 92 mg/dl (74-100); HDL Cholesterol 70 mg/dl (40-60); Potassium 4.2 mmoL/L (3.5-5.1); Sodium 132 mmol/L (136-145); Total Protein,Serum 6.9 g/dl (6.3-8.2); Triglycerides 279 mg/dl (30-150); VLDL Cholesterol 56 mg/dL (0-40)
[2022-05-06 16:07] LABS: Thyroid Stimulating Hormone 1.47 uIU/mL (0.465-4.68)
[2022-05-09 09:37] LABS: Direct LDL Cholesterol 133 mg/dL (100-129)
== END ==
PROVIDERS: PCP Family Medicine; Visit Provider Family Medicine
DX: Z12.31 Encounter for screening mammogram for malignant neoplasm of breast (principal); E03.9 Hypothyroidism, unspecified; E78.5 Hyperlipidemia, unspecified; I10 Essential (primary) hypertension
CPT/HCPCS: 36415; 77063; 77067; 80053; 80061; 84443

== ENCOUNTER → 2022-10-21 08:54 | Outpatient (CLI) | payer OTHER, SELFPAY ==
[2022-10-21 11:17] LABS: Alanine Aminotransferase 19 U/L (12-78); Albumin Level 3.7 g/dl (3.5-5.0); Albumin/Globulin Ratio 1.3 (1.1-1.8); Alkaline Phosphatase 79 U/L (38-126); Anion Gap 8.3 mEq/L (5-15); Aspartate Amino Transferase 22 U/L (14-36); Bilirubin,Total 0.6 mg/dl (0.2-1.3); Blood Urea Nitrogen 19 mg/dl (7-17); Calcium 8.5 mg/dl (8.4-10.2); Carbon Dioxide 30 mmol/L (22.0-30.0); Chloride 100 mmol/L (98-107); Chol/HDL Ratio 2.5 (1-3.5); Cholesterol 139 mg/dl (140-200); Estimated Glomerular Filt Rate 63 ml/min (>60); GFR (African American) 76 ML/MIN (>60); Globulin 2.8 g/dL (1.3-3.2); Glucose 85 mg/dl (74-100); HDL Cholesterol 55 mg/dl (40-60); Potassium 4.3 mmoL/L (3.5-5.1); Sodium 134 mmol/L (136-145); Total Protein,Serum 6.5 g/dl (6.3-8.2); Triglycerides 356 mg/dl (30-150); VLDL Cholesterol 71 mg/dL (0-40)
[2022-10-21 11:29] LABS: Direct LDL Cholesterol 43.53 mg/dL (100-129)
[2022-10-21 11:48] LABS: Thyroid Stimulating Hormone 1.65 uIU/mL (0.465-4.68)
== END ==
PROVIDERS: PCP Family Medicine; Visit Provider Family Medicine
DX: E03.9 Hypothyroidism, unspecified (principal); I10 Essential (primary) hypertension; E78.5 Hyperlipidemia, unspecified
CPT/HCPCS: 36415; 80053; 80061; 84443

== ENCOUNTER → 2023-07-19 10:08 | Outpatient (CLI) | payer MEDICARE, OTHER, SELFPAY ==
--- NOTE | 2023-07-19 10:25 | MM_ITS ---
PROCEDURE INFORMATION: Exam: MG Bilateral Screening 3D Mammography Exam date and time: 07/19/2023 10:19 AM Age: 63 years old Clinical indication: Screening examination TECHNIQUE: Imaging protocol: Bilateral Screening tomosynthesis and 2D mammography including computer-aided detection (CAD) when performed. COMPARISON: 1. MG MM DIG SCREENING MAMM BI W/CAD 05/06/2022 12:56 PM 2. MG MM DIG SCREENING MAMM BI W/CAD 11/12/2020 10:29 AM FINDINGS: MAMMOGRAPHY: Breast composition: There are scattered areas of fibroglandular density. Mass: None. Architectural distortion: None. Calcifications: No suspicious calcifications. Asymmetric density: None. Skin thickening: None. Axillary adenopathy: None. IMPRESSION: No mammographic evidence of malignancy. Annual screening is recommended unless otherwise clinically indicated. ASSESSMENT: BI-RADS Category 1: Negative
== END ==
PROVIDERS: PCP Family Medicine; Visit Provider Family Medicine
DX: Z12.31 Encounter for screening mammogram for malignant neoplasm of breast (principal)
CPT/HCPCS: 77063; 77067

== ENCOUNTER 2023-11-13 14:12 | Outpatient (CLI) | payer MEDICARE, OTHER, SELFPAY ==
--- NOTE | 2023-11-13 14:23 | CT_ITS ---
FINAL REPORT TECHNIQUE: Thin section axial CT images of the facial bones and sinuses were obtained without contrast. Coronal and sagittal reformatted images were also obtained.This study was performed with techniques to keep radiation doses as low as reasonably achievable, (ALARA). Individualized dose reduction techniques using automated exposure control or adjustment of mA and/or kV according to the patient''''s size were employed. CLINICAL HISTORY: NASAL CONGESTION,CHRONIC SINUSITIS COMPARISON: None FINDINGS: There is no evidence of mucosal thickening. No fluid levels are identified. The ostiomeatal units have an unremarkable appearance. The nasal septum is in the midline. No fracture or acute bony abnormality is identified. Note is made of paradoxical rotation of the right middle turbinate. IMPRESSION: No focal abnormality identified of the sinuses. Reviewed, Interpreted and Dictated by Michael Alexander III, MD Transcribed by Jaelyn Cantu Authenticated and . [facility]
== END 2023-11-13 23:59 ==
LOC: RAD 14:13
PROVIDERS: PCP Family Medicine; Visit Provider Family Medicine
DX: J32.8 Other chronic sinusitis (principal); R09.81 Nasal congestion
CPT/HCPCS: 70486

== ENCOUNTER 2023-12-02 10:38 | Outpatient (CLI) | payer MEDICARE, OTHER, SELFPAY ==
--- NOTE | 2023-12-02 10:47 | XR_ITS ---
PROCEDURE INFORMATION: Exam: XR Complete Acute Abdomen Series Including Chest Exam date and time: 12/02/2023 10:51 AM Age: 63 years old Clinical indication: Abdominal pain; Epigastric; Additional info: Epigastric pain TECHNIQUE: Imaging protocol: Radiologic exam. Complete acute abdomen series, including 2 or more views of the abdomen and a single view chest. COMPARISON: CR XR CHEST PORTABLE 01/07/2021 8:14 PM FINDINGS: Lungs: Normal. No consolidation. Pleural spaces: Normal. No pleural effusions. No pneumothorax. Heart/Mediastinum: Normal. No cardiomegaly. Gastrointestinal tract: Suspected gastric mucosal thickening, additional workup recommended. Nonspecific bowel gas pattern, without gaseous distension. Intraperitoneal space: Normal. No free air. Bones/joints: Degenerative changes lumbar spine. No acute fracture. Soft tissues: Normal. IMPRESSION: Suspected gastric mucosal thickening, additional workup recommended.
[2023-12-02 11:15] LABS: Basophils # 0.1 K/mm3 (0-0.2); Eosinophils # 0.1 K/mm3 (0.0-0.4); Eosinophils % 1.1 % (0.1-12.0); Hematocrit 40.2 % (37.0-47.0); Lymphocytes # 4.1 K/mm3 (0.7-4.5); Lymphocytes % 32.4 % (10-50); Mean Corpuscular HGB Conc 32.3 g/dL (31.8-35.4); Mean Corpuscular Hemoglobin 31.8 pg (27.0-31.2); Mean Corpuscular Volume 98.6 fl (81-99); Monocytes # 0.4 K/mm3 (0.1-1.0); Monocytes % 3.3 % (1.7-9.3); Neutrophils # 7.8 K/mm3 (1.8-7.8); Neutrophils % 62.2 % (37.0-80.0); Platelet Count 295 K/mm3 (142-424); Red Blood Count 4.08 M/mm3 (4.20-5.40); Red Cell Distribution Width 13.9 % (11.5-17.5); White Blood Count 12.6 K/mm3 (4.8-10.8)
[2023-12-02 12:52] LABS: Chloride 99 mmol/L (98-107)
[2023-12-02 12:53] LABS: Sodium 134 mmol/L (136-145)
[2023-12-02 12:55] LABS: Alanine Aminotransferase 15 U/L (12-78); Alkaline Phosphatase 94 U/L (38-126); Amylase 51 U/L (30-110); Aspartate Amino Transferase 22 U/L (14-36); Bilirubin,Total 0.4 mg/dl (0.2-1.3); Blood Urea Nitrogen 13 mg/dl (7-17); Carbon Dioxide 32 mmol/L (22.0-30.0); Estimated Glomerular Filt Rate 63 ml/min (>60); GFR (African American) 76 ML/MIN (>60)
[2023-12-02 12:56] LABS: Albumin Level 4.2 g/dl (3.5-5.0); Albumin/Globulin Ratio 1.6 (1.1-1.8); Calcium 9.4 mg/dl (8.4-10.2); Globulin 2.6 g/dL (1.3-3.2); Glucose 111 mg/dl (74-100); Lipase 73 U/L (23-300); Total Protein,Serum 6.8 g/dl (6.3-8.2)
[2023-12-02 13:07] LABS: Troponin I < 0.01 ng/ml (0.00-0.034)
== END 2023-12-02 23:59 ==
LOC: LAB 10:41
PROVIDERS: PCP Family Medicine; Visit Provider Family Medicine
DX: R10.13 Epigastric pain (principal); M54.9 Dorsalgia, unspecified
CPT/HCPCS: 36415; 74021; 80053; 82150; 83690; 84484; 85025

== ENCOUNTER 2024-02-07 19:54 | Emergency (ER) | payer MEDICARE, OTHER, SELFPAY ==
[2024-02-07 19:55] VITALS: BP 142/77; PULSE 74; RESP 16; TEMP 36.6; O2SAT 97; BMI 28.3
[2024-02-07 20:00] VITALS: BP 142/77; PULSE 74; RESP 18; O2SAT 98
[2024-02-07] MEDS: LACTATED RINGERS 1000ML 1,000 ML 999 ML IV ×2 (20:11→22:16)
[2024-02-07] MEDS: ONDANSETRON 4MG/2ML VIAL 4 MG IV ×2 (20:11→20:43)
--- NOTE | 2024-02-07 20:16 | HMH.EDGENADL ---
Discharge Plan Disposition Patient Disposition: Home, Self-Care Prescriptions Prescriptions: New ondansetron 4 mg tablet,disintegrating 4 mg PO Q6H PRN (Reason: nausea and vomiting) Qty: 10 0RF No Action lisinopril-hydrochlorothiazide 20-12.5 mg tablet 1 tab PO DAILY Patient Comments: TAKE 1 TABLET BY MOUTH EVERY DAY metoprolol tartrate 100 mg tablet 100 mg PO BID Patient Comments: TAKE 1 TABLET BY MOUTH TWICE DAILY amlodipine 5 mg tablet 5 mg PO HS Patient Comments: TAKE 1 TABLET BY MOUTH AT BEDTIME levothyroxine 50 mcg tablet 50 mcg PO AM Patient Comments: TAKE 1 TABLET BY MOUTH EVERY DAY estradiol 0.5 mg tablet 0.5 mg PO DAILY Patient Comments: TAKE 1 TABLET BY MOUTH EVERY DAY fluticasone propionate 50 mcg/actuation spray,suspension 1 spray INTRANASAL BID Patient Comments: INHALE 1 SPRAY INTO EACH NOSTRIL TWICE A DAY loratadine 10 mg tablet 10 mg PO DAILY Patient Comments: TAKE 1 TABLET BY MOUTH DAILY naproxen 500 mg tablet 500 mg PO BIDP PRN (Reason: Arthritis) Patient Comments: TAKE 1 TABLET BY MOUTH TWICE DAILY rosuvastatin 20 mg tablet 20 mg PO HS Patient Comments: TAKE 1 TABLET BY MOUTH EVERY DAY Referrals Follow up/Referrals: Juancho Chavez MD [Primary Care Provider] - See instructions Activity Restrictions/Add. Instructions Additional Instructions/Restrictions: Call your family doctor to establish care for this visit to the emergency department and schedule follow-up within 48 hours to ensure improvement. If you have any worsening of your condition or any other concerning signs or symptoms, return to the emergency department or your primary care doctor for further evaluation. Zofran under the tongue to dissolve every 6 hours as needed Clinical Impressions Clinical Impression: Vomiting and diarrhea Instructions Patient Instructions: DI for Diarrhea and Traveler's Diarrhea -- Adult, DI for Diarrhea and Traveler's Diarrhea -- Child, DI for Nausea -- Adult, DI for Nausea -- Child Discharge ED Provider: Sebastián Daniels General Adult HPI General Chief complaint: Nausea/Vomiting/Diarrhea Stated complaint: vomiting, diarrhea Time Seen by Provider: 02/07/24 19:56 Mode of Arrival: Ambulatory Source of Information: Patient Limitations: No Limitations Description of Symptoms (Recalled from ER Triage Doc. by RN): 64 F presents from home with c/o nausea, vomiting, diarrhea that started around midnight. She reports having been up since with these symptoms. She denies fever, but reports chills and generalized abdominal pain. Patient adds that she has had several episodes of diarrhea which has caused irritation to her anus and she is noticing bright red blood when wiping. NAD, VSS History of Present Illness HPI narrative: Please note that above description of symptoms, in this electronic medical record under categorization of recalled from ER triage doctor by RN are reflective of an initial nursing assessment, however, is not reflective of my full history and physical exam that was personally taken and clarified. Consequentially, this preceding description of symptoms, which may include the patient's categorized chief complaint in the EMR, do not reflect my personal clinical impression, and the ultimate description of history of present illness and patient stated complaints should be deferred to this section of the note. Unless stated otherwise or congruent with this section of the note, additional signs, symptoms, or incongruence should be interpreted as inaccurate with my clinical impression. Related Data Home Medications Medication Instructions Recorded Confirmed amlodipine 5 mg tablet 5 mg PO HS 02/07/24 02/07/24 estradiol 0.5 mg tablet 0.5 mg PO DAILY 02/07/24 02/07/24 fluticasone propionate 50 1 spray intranasal BID 02/07/24 02/07/24 mcg/actuation nasal spray,suspension levothyroxine 50 mcg tablet 50 mcg PO AM 02/07/24 02/07/24 lisinopril 20 1 tab PO DAILY 02/07/24 02/07/24 mg-hydrochlorothiazide 12.5 mg tablet loratadine 10 mg tablet 10 mg PO DAILY 02/07/24 02/07/24 metoprolol tartrate 100 mg tablet 100 mg PO BID 02/07/24 02/07/24 naproxen 500 mg tablet 500 mg PO BIDP PRN Arthritis 02/07/24 02/07/24 rosuvastatin 20 mg tablet 20 mg PO HS 02/07/24 02/07/24 Previous Rx's Medication Instructions Recorded ondansetron 4 mg disintegrating 4 mg PO Q6H PRN nausea and 02/07/24 tablet vomiting #10 tabs Allergies Allergy/AdvReac Type Severity Reaction Status Date / Time metoclopramide [From Reglan] Allergy Severe S-BLISTERS Verified 01/22/18 14:25 IN MOUTH Penicillins Allergy Severe S-BLISTERS Verified 01/22/18 14:25 IN MOUTH Sulfa (Sulfonamide Allergy Severe S-BLISTERS Verified 01/22/18 14:25 Antibiotics) IN MOUTH PFSH PFS Disclaimer: The information contained in this section may have been updated after the patient was seen, as this information can be updated by other users. Social History Smoking Status: Never smoker alcohol intake: never substance use type: denies use current occupational status: employed Travel in the last 8 weeks: None ROS Obtained: Yes All systems reviewed & no additional complaints except as documented Physical Exam General General appearance: alert and in no apparent distress Head Head exam: atraumatic and normocephalic Eye Eye exam: Present normal appearance, PERRL and EOMI ENT ENT exam: Present mucous membranes moist Neck Neck exam: Present normal inspection, full ROM and trachea midline Respiratory Respiratory exam: Absent respiratory distress, wheezes, stridor, accessory muscle use or prolonged expiratory phase Cardiovascular Cardiovascular exam: Present normal rhythm Abdominal Exam Abdominal exam: Present soft; Absent distention, tenderness, guarding, rebound or rigidity Extremities Exam Extremities exam: Absent edema Neurological Exam Neurological exam: Present alert, oriented X3, CN II-XII intact and normal gait; Absent motor sensory deficit Skin Skin exam: Present warm and dry; Absent diaphoresis or erythema Medical Decision Making Medical Records Medical records reviewed: Yes I reviewed the patient's medical records. Darryl Inquiry Pt receiving controlled substance: No Darryl was queried for this patient: No Vital Signs: 02/07/24 19:55 02/07/24 20:00 02/07/24 20:30 Temperature 97.8 F Temperature Source Oral Pulse Rate 74 70 Pulse Rate [Left] 74 Respiratory Rate 16 18 16 Blood Pressure 142/77 H 139/76 Blood Pressure [Right Arm] 142/77 H Blood Pressure Mean 98 Blood Pressure Mean [Right Arm] 98 Blood Pressure Source [Right Arm] Automatic Cuff Blood Pressure Position [Right Arm] Sitting 02 Sat by Pulse Oximetry 97 98 97 Oxygen Delivery Method Room Air Room Air Room Air Lab Data Lab Results 02/07/24 20:06: WBC 8.9, RBC 4.41, Hgb 13.5, Hct 42.2, MCV 95.6, MCH 30.6, MCHC 32.0, RDW 14.8, Plt Count 289, MPV 9.7, Neut % (Auto) 79.7, Lymph % (Auto) 14.6, [place] % (Auto) 4.7, Eos % (Auto) 0.7, Baso % (Auto) 0.4, Neut # (Auto) 7.1, Lymph # (Auto) 1.3, [place] # (Auto) 0.4, Eos # (Auto) 0.1, Baso # (Auto) 0.0, Sodium 136, Potassium 3.5, Chloride 98, Carbon Dioxide 27, Anion Gap 14.5, BUN 21 H, Creatinine 1.10 H, Estimated Creat Clear 58, Estimated GFR 50 L, Est GFR ( Amer) 60, Glucose 111 H, Calcium 8.7, Total Bilirubin 0.5, AST 27, ALT 22, Alkaline Phosphatase 87, Total Protein 7.5, Albumin 4.3, Globulin 3.2, Albumin/Globulin Ratio 1.3, Lipase 44 02/07/24 20:53: Urine Color Yellow, Urine Appearance Clear, Urine pH 5.5, Ur Specific Motley 1.025, Urine Protein Negative, Urine Glucose (UA) Negative, Urine Ketones Negative, Urine Blood 1+, Urine Nitrate Negative, Urine Bilirubin Negative, Urine Urobilinogen 0.2, Ur Leukocyte Esterase Negative, Urine RBC 3-5, Urine WBC Occasional, Ur Squamous Epith Cells Occasional, Urine Bacteria Trace 02/07/24 20:06 02/07/24 20:06 Orders (Tests/Meds): ED MEDICATIONS Generic Name Dose Route Start Last Admin Trade Name Freq PRN Reason Stop Dose Admin Lactated Ringer's 1,000 mls @ 999 mls/hr 02/07/24 22:14 02/07/24 22:16 Lactated Ringer's 1000 Ml Bag IV 02/07/24 23:14 999 mls/hr .Q1H1M ONE Administration Sodium Chloride 10 ml 02/07/24 20:08 Sodium Chloride 0.9% 10ml Flush Syringe IV 02/08/24 08:09 NEEDED PRN Maintain IV Site Discontinued Medications Generic Name Dose Route Start Last Admin Trade Name Freq PRN Reason Stop Dose Admin Lactated Ringer's 1,000 mls @ 999 mls/hr 02/07/24 20:08 02/07/24 20:11 Lactated Ringer's 1000 Ml Bag IV 02/07/24 21:08 999 mls/hr .Q1H1M ONE Administration Ondansetron HCl 4 mg 02/07/24 20:08 02/07/24 20:11 Ondansetron 4mg/2ml Vial IV 02/07/24 20:09 4 mg ONCE ONE Administration Ondansetron HCl 4 mg 02/07/24 20:42 02/07/24 20:43 Ondansetron 4mg/2ml Vial IV 02/07/24 20:43 4 mg ONCE ONE Administration ORDERS Category Date Time Status Complete Blood Count Auto Diff Stat Lab 02/07/24 20:06 Completed Comprehensive Metabolic Panel Stat Lab 02/07/24 20:06 Completed Lipase Stat Lab 02/07/24 20:06 Completed Urinalysis and Microscopic Stat Lab 02/07/24 20:53 Completed Medical Decision Narrative: 64-year-old female history of hypertension, hyperlipidemia, hypothyroidism presenting with vomiting and diarrhea. Patient states the vomiting and diarrhea started earlier this morning, 02/06. Has had numerous episodes of nonbloody, bilious vomiting and nonbloody diarrhea. Thinks that she has a GI bug. No fevers or chills, but she does have dysuria with hematuria. Following with her family doctor for this, not currently on antibiotic. Unable to tolerate much p.o. intake other than sips of Sprite, so came to the emergency department for further evaluation. History was obtained via conversation with patient. On arrival, patient hemodynamically stable, alert, oriented x4, appropriate, GCS 15, moving all extremities spontaneously, pupils equal and reactive to light. Full physical exam performed and significant for very well-appearing, does not appear incredibly dehydrated. Normotensive, nontachycardic. Afebrile and saturating around 97% on room air. Lungs are clear to auscultation, abdomen is soft, nontender, nondistended. Patient has no flank tenderness. Not actively retching. Differential includes gastritis, enteritis, gastroenteritis, pancreatitis, metabolic abnormality, UTI, among others. Patient was given fluids, Zofran for symptomatic management and correction of underlying abnormalities. Patient was placed in observation beginning at 6 PM in order to give fluids, meds, reassess with p.o. challenge and determine need for admission versus home-going. The patient was provided Zofran, fluids, p.o. challenge while awaiting results. Independent interpretation of results demonstrated nonactionable CBC or chemistry, urinalysis negative. On reevaluation, patient states she still feels dehydrated, requesting second liter of fluids, I feel this is appropriate. On reevaluation, patient tolerating p.o. intake, feeling better although still nauseated. At this time, I feel patient is appropriate for admission/discharge. Total observation time 5 hours. Because patient at baseline without signs or symptoms of clinical decompensation, deemed appropriate for discharge. Results were relayed to patient who voiced understanding and were agreeable to outpatient management and follow up. I discussed my clinical impression with patient and answered all questions. At this time, the evidence for any other entities in the differential is insufficient to warrant any further testing or ED observation. This was explained as well. Advisory was given that persistent or worsening symptoms require further evaluation. I confirmed the understanding of this discussion. Financial Cost Analyst disclaimer Much of this encounter note is an electronic retail account representative spoken language to printed text. Electronic retail account representative of the spoken language may permit errors. Although I have reviewed the note, some errors may still exist. Critical Care Critical Care Time Critical Care Time: No
[2024-02-07 20:17] LABS: Basophils % 0.4 % (0.1-2.0); Eosinophils # 0.1 K/mm3 (0.0-0.4); Eosinophils % 0.7 % (0.1-12.0); Hematocrit 42.2 % (37.0-47.0); Hemoglobin 13.5 g/dL (12.2-16.2); Lymphocytes # 1.3 K/mm3 (0.7-4.5); Lymphocytes % 14.6 % (10-50); Mean Corpuscular Hemoglobin 30.6 pg (27.0-31.2); Mean Corpuscular Volume 95.6 fl (81-99); Mean Platelet Volume 9.7 fl (7.4-10.4); Monocytes # 0.4 K/mm3 (0.1-1.0); Monocytes % 4.7 % (1.7-9.3); Neutrophils # 7.1 K/mm3 (1.8-7.8); Neutrophils % 79.7 % (37.0-80.0); Platelet Count 289 K/mm3 (142-424); Red Blood Count 4.41 M/mm3 (4.20-5.40); Red Cell Distribution Width 14.8 % (11.5-17.5); White Blood Count 8.9 K/mm3 (4.8-10.8)
[2024-02-07 20:20] LABS: Chloride 98 mmol/L (98-107); Potassium 3.5 mmoL/L (3.5-5.1); Sodium 136 mmol/L (136-145)
[2024-02-07 20:23] LABS: Alanine Aminotransferase 22 U/L (12-78); Albumin Level 4.3 g/dl (3.5-5.0); Albumin/Globulin Ratio 1.3 (1.1-1.8); Alkaline Phosphatase 87 U/L (38-126); Anion Gap 14.5 mEq/L (5-15); Aspartate Amino Transferase 27 U/L (14-36); Bilirubin,Total 0.5 mg/dl (0.2-1.3); Blood Urea Nitrogen 21 mg/dl (7-17); Calcium 8.7 mg/dl (8.4-10.2); Carbon Dioxide 27 mmol/L (22.0-30.0); Creatinine Clearance Estimated 58 mL/min (50-200); Estimated Glomerular Filt Rate 50 ml/min (>60); GFR (African American) 60 ML/MIN (>60); Globulin 3.2 g/dL (1.3-3.2); Glucose 111 mg/dl (74-100); Lipase 44 U/L (23-300); Total Protein,Serum 7.5 g/dl (6.3-8.2)
[2024-02-07 20:30] VITALS: BP 139/76; PULSE 70; RESP 16; O2SAT 97
--- NOTE | 2024-02-07 21:20 | PC.NURSE ---
Patient feeling better now. Is drinking sprite. Provided a UA sample and sent to lab
[2024-02-07 22:03] LABS: Microscopic, Urine URINE MICROSCOPIC (MICROSCOPIC)
[2024-02-07 22:04] LABS: Appearance,Urine CLEAR (Clear); Bilirubin,Urine Negative (Negative); Blood, Urine 1+ (Negative); Color,Urine YELLOW (Yellow); Glucose,Urine (UA) Negative (Negative); Ketones,Urine Negative (Negative); Leukocyte Esterase,Urine Negative (Negative); Nitrate,Urine Negative (Negative); PH,Urine 5.5 (5.0-8.5); Protein,Urine Negative (Negative); Specific Gravity, Urine 1.025 (1.005-1.030); Urobilinogen,Urine 0.2 EU/dl (0.2)
[2024-02-07 22:17] LABS: Bacteria,Urine Trace /lpf; Squamous Epithelial Cell,Urine Occasional #/hpf (0-5); WBC,Urine Occasional #/hpf (0-3)
--- NOTE | 2024-02-07 22:20 | PC.NURSE ---
Patient tolerating PO fluid and crackers at this time
[2024-02-07 23:03] VITALS: BP 117/71; PULSE 68; RESP 16; TEMP 36.6; O2SAT 97
== END 2024-02-07 23:03 | disposition home or self-care (01) ==
PROVIDERS: Emergency Provider Emergency Medicine; PCP Family Medicine
DX: R11.2 Nausea with vomiting, unspecified (principal); R19.7 Diarrhea, unspecified; I10 Essential (primary) hypertension; E78.5 Hyperlipidemia, unspecified; E03.9 Hypothyroidism, unspecified
CPT/HCPCS: 80053; 81001; 83690; 85025; 96361; 96374; 96376; 99284; J2405; J7120

== ENCOUNTER 2024-07-22 08:24 | Outpatient (CLI) | payer MEDICARE, OTHER, SELFPAY ==
--- NOTE | 2024-07-22 08:30 | MM_ITS ---
PROCEDURE INFORMATION: Exam: MG Bilateral Screening 3D Mammography Exam date and time: 07/22/2024 8:18 AM Age: 64 years old Clinical indication: Screening examination. Her mother had breast cancer. TECHNIQUE: Imaging protocol: Bilateral Screening tomosynthesis and 2D mammography including computer-aided detection (CAD) when performed. COMPARISON: 1. MG MM DIG SCREENING MAMM BI W/CAD 07/19/2023 10:19 AM 2. MG MM DIG SCREENING MAMM BI W/CAD 11/12/2020 10:29 AM FINDINGS: MAMMOGRAPHY: Breast composition: There are scattered areas of fibroglandular density. Mass: No suspicious mass. Architectural distortion: None. Calcifications: No suspicious calcifications. Asymmetric density: None. Skin thickening: None. Axillary adenopathy: None. IMPRESSION: No mammographic evidence of malignancy. Annual screening is recommended unless otherwise clinically indicated. ASSESSMENT: BI-RADS Category 1: Negative.
== END 2024-07-22 23:59 | disposition home or self-care (01) ==
LOC: RAD 08:26
PROVIDERS: PCP Family Medicine; Visit Provider Family Medicine
DX: Z12.31 Encounter for screening mammogram for malignant neoplasm of breast (principal)
CPT/HCPCS: 77063; 77067

== ENCOUNTER 2025-01-12 10:02 | Observation (INO) | payer MEDICARE, OTHER, SELFPAY ==
[2025-01-12] VITALS (26 sets, daily range): BP systolic 110–155; BP diastolic 58–82; PULSE 64–133; RESP 14–29; TEMP 36.6–37.1; O2SAT 93–100; BMI 29.4
--- NOTE | 2025-01-12 10:20 | ECG_ITS ---
APPROVED REPORT Exam: Resting ECG HR:117 bpm ECG Measurements Heart Rate 117 AXES TN 185 P 73 QRSd 102 QRS 23 QT 433 T 47 QTc 502 Conclusion Sinus tachycardia, normal axis, normal intervals, no noted ST elevation Electronically signed by : Tariq Otero, 01/12/2025 14:12:39
--- NOTE | 2025-01-12 10:25 | CT_ITS ---
PROCEDURE INFORMATION: Exam: CT Abdomen And Pelvis With Contrast Exam date and time: 01/12/2025 11:15 AM Age: 64 years old Clinical indication: Abdominal pain; Additional info: Lower abdominal pain, bilateral CVA tenderness TECHNIQUE: Imaging protocol: Computed tomography of the abdomen and pelvis with contrast. Radiation optimization: All CT scans at this facility use at least one of these dose optimization techniques: automated exposure control; mA and/or kV adjustment per patient size (includes targeted exams where dose is matched to clinical indication); or iterative reconstruction. Contrast material: ISOVUE; Contrast volume: 75 ml; Contrast route: IV; COMPARISON: CR XR ACUTE ABDOMEN SERIES 12/02/2023 10:51 AM FINDINGS: Liver: Normal. No mass. Gallbladder and biliary ducts: Gallbladder distended with wall thickening and adjacent inflammatory changes. No radiopaque gallstone identified. Common bile duct not distended. No intrahepatic ductal dilatation. Pancreas: Normal. No ductal dilation. Spleen: Normal. No splenomegaly. Adrenal glands: Normal. No mass. Kidneys and ureters: Normal. No hydronephrosis. Stomach and bowel: Unremarkable. No obstruction. No mucosal thickening. Appendix: No evidence of appendicitis. Intraperitoneal space: Unremarkable. No free air. No significant fluid collection. Vasculature: Unremarkable. No abdominal aortic aneurysm. Lymph nodes: Unremarkable. No enlarged lymph nodes. Urinary bladder: Unremarkable as visualized. Reproductive: Unremarkable as visualized. Bones/joints: Grade 1 anterolisthesis at L4-L5 with moderate canal stenosis. No acute fracture. Soft tissues: Unremarkable. IMPRESSION: Gallbladder distended with wall thickening and adjacent inflammatory changes. No radiopaque gallstone identified. Compatible with acute cholecystitis.
--- NOTE | 2025-01-12 10:38 | ED_ITS ---
Discharge Plan Disposition Patient Disposition: Admitted Condition: Good Chief Complaint: Back Pain/Injury Prescriptions Prescriptions: No Action lisinopril-hydrochlorothiazide 20-12.5 mg tablet 1 tab PO DAILY Patient Comments: TAKE 1 TABLET BY MOUTH EVERY DAY metoprolol tartrate 100 mg tablet 100 mg PO BID Patient Comments: TAKE 1 TABLET BY MOUTH TWICE DAILY amlodipine 5 mg tablet 5 mg PO HS Patient Comments: TAKE 1 TABLET BY MOUTH AT BEDTIME levothyroxine 50 mcg tablet 50 mcg PO AM Patient Comments: TAKE 1 TABLET BY MOUTH EVERY DAY estradiol 0.5 mg tablet 0.5 mg PO DAILY Patient Comments: TAKE 1 TABLET BY MOUTH EVERY DAY fluticasone propionate 50 mcg/actuation spray,suspension 1 spray INTRANASAL BID Patient Comments: INHALE 1 SPRAY INTO EACH NOSTRIL TWICE A DAY loratadine 10 mg tablet 10 mg PO DAILY Patient Comments: TAKE 1 TABLET BY MOUTH DAILY naproxen 500 mg tablet 500 mg PO BIDP PRN (Reason: Arthritis) Patient Comments: TAKE 1 TABLET BY MOUTH TWICE DAILY rosuvastatin 20 mg tablet 20 mg PO HS Patient Comments: TAKE 1 TABLET BY MOUTH EVERY DAY ondansetron 4 mg tablet,disintegrating 4 mg PO Q6H PRN (Reason: nausea and vomiting) Qty: 10 0RF Clinical Impressions Clinical Impression: Abdominal pain, Acute hyponatremia, Acute hypokalemia, Back pain, Acute acalculous cholecystitis Print Language Print Language: Russian Discharge ED Provider: Tariq Otero General Adult HPI General Chief complaint: Back Pain/Injury Stated complaint: bacterial infection in urine, pain in lower back Time Seen by Provider: 01/12/25 10:09 Mode of Arrival: Wheelchair Source of Information: Patient Description of Symptoms (Recalled from ER Triage Doc. by RN): Patient reports she was diagnosed with a UTI 4 days ago and has been taking her antibiotic as prescribed. Presents today with lower back pain. States she does have a history of bad discs . History of Present Illness HPI narrative: 64-year-old female past medical history of hypertension, chronic back pain presents to ED with abdominal pain, lower back pain. Was diagnosed with urinary tract infection 4 days ago started on levofloxacin. Since then has had diarrhea, nausea. Denies fevers. Pain in back has worsened today leading to her coming to ER for further evaluation. Denies chest pain, shortness of breath, dysuria, other symptoms or concerns at this time Please note that above description of symptoms, in this electronic medical record under categorization of recalled from ER triage doctor by RN are reflective of an initial nursing assessment, however, is not reflective of my full history and physical exam that was personally taken and clarified. Consequentially, this preceding description of symptoms, which may include the patient's categorized chief complaint in the EMR, do not reflect my personal clinical impression, and the ultimate description of history of present illness and patient stated complaints should be deferred to this section of the note. Unless stated otherwise or congruent with this section of the note, additional signs, symptoms, or incongruence should be interpreted as inaccurate with my clinical impression. Related Data Home Medications ?Medication ?Instructions ?Recorded ?Confirmed amlodipine 5 mg tablet 5 mg PO HS 02/07/24 02/07/24 estradiol 0.5 mg tablet 0.5 mg PO DAILY 02/07/24 02/07/24 fluticasone propionate 50 1 spray intranasal BID 02/07/24 02/07/24 mcg/actuation nasal spray,suspension levothyroxine 50 mcg tablet 50 mcg PO AM 02/07/24 02/07/24 lisinopril 20 1 tab PO DAILY 02/07/24 02/07/24 mg-hydrochlorothiazide 12.5 mg tablet loratadine 10 mg tablet 10 mg PO DAILY 02/07/24 02/07/24 metoprolol tartrate 100 mg tablet 100 mg PO BID 02/07/24 02/07/24 naproxen 500 mg tablet 500 mg PO BIDP PRN Arthritis 02/07/24 02/07/24 rosuvastatin 20 mg tablet 20 mg PO HS 02/07/24 02/07/24 Previous Rx's ?Medication ?Instructions ?Recorded ondansetron 4 mg disintegrating 4 mg PO Q6H PRN nausea and 02/07/24 tablet vomiting #10 tabs Allergies Allergy/AdvReac Type Severity Reaction Status Date / Time metoclopramide (From Reglan) Allergy Severe S-BLISTERS Verified 01/22/18 14:25 IN MOUTH Penicillins Allergy Severe S-BLISTERS Verified 01/22/18 14:25 IN MOUTH Sulfa (Sulfonamide Allergy Severe S-BLISTERS Verified 01/22/18 14:25 Antibiotics) IN MOUTH PFSH PFSH Disclaimer: The information contained in this section may have been updated after the patient was seen, as this information can be updated by other users. Social History (Updated 02/07/24 @ 22:54 by Sebastián Daniels MD) Smoking Status: Never smoker alcohol intake: never substance use type: denies use current occupational status: employed Travel in the last 8 weeks?: None Have you lived/traveled outside [place] in past 30 days?: No Contact w/someone who lives/traveled outside [place] past 30 days?: No Exposure to someone with infectious disease in past 14 days?: No Do you have a fever (greater than 100.4 F or 38 C)?: No Have you tested positive for COVID-19?: No Exposed to someone with COVID-19 in past 14 days?: No Do you have a sore throat?: No Do you have a cough?: No Do you have any weakness?: No Do you have any diarrhea?: No Are you experiencing any unusual bleeding?: No Do you have any muscle aches/pain?: No Do you have any abdominal pain?: No Are you experiencing loss of taste or smell?: No Other Medical History Have you received the Flu Vaccine for this season: No Have you received the Pneumonia Vaccine: No ROS Obtained: Yes Systems reviewed as appropriate & no additional complaints except as documented Physical Exam General General appearance: alert and in no apparent distress Head Head exam: atraumatic, normocephalic and normal inspection Eye Eye exam: Present normal appearance and EOMI ENT ENT exam: Present normal exam and mucous membranes moist Neck Neck exam: Present normal inspection and full ROM Chest Chest inspection: Present normal inspection and symmetric chest wall rise; Absent tenderness Respiratory Respiratory exam: Present normal lung sounds bilaterally; Absent respiratory distress, wheezes, stridor or accessory muscle use Cardiovascular Cardiovascular exam: Present normal rhythm, tachycardia and normal heart sounds Abdominal Exam Abdominal exam: Present soft, tenderness and normal bowel sounds; Absent distention, guarding, rebound or rigidity Abdominal tenderness: Present RUQ, RLQ, LLQ and suprapubic Extremities Exam Extremities exam: Present normal inspection and full ROM; Absent tenderness Back Exam Back exam: Present normal inspection, CVA tenderness (R) and CVA tenderness (L) Neurological Exam Neurological exam: Present alert and oriented X3 Psychiatric Psychiatric exam: Present normal affect and normal mood Skin Skin exam: Present warm, dry, intact and normal color; Absent rash Medical Decision Making Medical Records Medical records reviewed: Yes I reviewed the patient's medical records. Screening: Per USPSTF and CDC recommendations, given the prevalence of disease in our region, it is our hospital?s policy to screen for HIV and viral Hepatitis for all patients aged 18 and over and those with ongoing risk factors. Darryl Inquiry Pt receiving controlled substance: No Vital Signs: 01/12/25 10:10 01/12/25 10:11 01/12/25 10:30 Temperature 98.7 F Temperature Source Oral Pulse Rate 129 H 102 H Pulse Rate [Radial] 133 H Respiratory Rate 18 Blood Pressure 136/77 150/81 H Blood Pressure [Right Arm] 152/82 H Blood Pressure Mean Blood Pressure Mean [Right Arm] 105 Blood Pressure Source [Right Arm] Automatic Cuff Blood Pressure Position [Right Arm] Sitting 02 Sat by Pulse Oximetry 98 98 98 Oxygen Delivery Method Room Air Room Air 01/12/25 11:00 01/12/25 11:30 01/12/25 12:00 Temperature Temperature Source Pulse Rate 70 80 77 Pulse Rate [Radial] Respiratory Rate Blood Pressure 119/63 115/60 Blood Pressure [Right Arm] Blood Pressure Mean 73 Blood Pressure Mean [Right Arm] Blood Pressure Source [Right Arm] Blood Pressure Position [Right Arm] 02 Sat by Pulse Oximetry 100 99 98 Oxygen Delivery Method Room Air Room Air 01/12/25 12:26 01/12/25 12:30 01/12/25 12:50 Temperature Temperature Source Pulse Rate 105 H 88 79 Pulse Rate [Radial] Respiratory Rate 29 H 15 Blood Pressure 139/76 123/58 L Blood Pressure [Right Arm] Blood Pressure Mean Blood Pressure Mean [Right Arm] Blood Pressure Source [Right Arm] Blood Pressure Position [Right Arm] 02 Sat by Pulse Oximetry 95 99 99 Oxygen Delivery Method Room Air Room Air 01/12/25 13:00 01/12/25 13:10 01/12/25 13:15 Temperature Temperature Source Pulse Rate 81 79 80 Pulse Rate [Radial] Respiratory Rate 20 16 17 Blood Pressure 119/70 134/66 Blood Pressure [Right Arm] Blood Pressure Mean Blood Pressure Mean [Right Arm] Blood Pressure Source [Right Arm] Blood Pressure Position [Right Arm] 02 Sat by Pulse Oximetry 98 99 98 Oxygen Delivery Method Room Air Room Air Room Air 01/12/25 13:20 01/12/25 13:30 Temperature Temperature Source Pulse Rate 80 72 Pulse Rate [Radial] Respiratory Rate 18 16 Blood Pressure 132/67 110/66 Blood Pressure [Right Arm] Blood Pressure Mean Blood Pressure Mean [Right Arm] Blood Pressure Source [Right Arm] Blood Pressure Position [Right Arm] 02 Sat by Pulse Oximetry 97 99 Oxygen Delivery Method Room Air Room Air Lab Data Lab Results 01/12/25 10:33: WBC 8.9, RBC 4.10 L, Hgb 12.3, Hct 35.6 L, MCV 86.8, MCH 30.0, MCHC 34.6, RDW 13.0, Plt Count 236, MPV 10.6 H, Neut % (Auto) 55.0, Lymph % (Auto) 37.7, [place] % (Auto) 6.6, Eos % (Auto) 0.3, Baso % (Auto) 0.2, Neut # (Auto) 4.9, Lymph # (Auto) 3.4, [place] # (Auto) 0.6, Eos # (Auto) 0.0, Baso # (Auto) 0.0, Sodium 123 L, Potassium 2.7 L*, Chloride 86 L, Carbon Dioxide 27, Anion Gap 12.7, BUN 9, Creatinine 1.40 H, Estimated Creat Clear 47, Estimated GFR 38 L, Est GFR ( Amer) 46 L, Glucose 127 H, Lactate 1.2, Calcium 8.8, Total Bilirubin 0.8, AST 20, ALT 15, Alkaline Phosphatase 98, Troponin I < 0.01, Total Protein 7.6, Albumin 4.4, Globulin 3.2, Albumin/Globulin Ratio 1.4, Lipase 75, HCV Ab ALONZO w/Rflx PCR Qn Negative, HIV Ag/Ab Combo Qual Negative 01/12/25 12:28: Urine Color Yellow, Urine Appearance Clear, Urine pH 6.5, Ur Specific [place] 1.010, Urine Protein Negative, Urine Glucose (UA) Negative, Urine Ketones Negative, Urine Blood Trace-i, Urine Nitrate Negative, Urine Bilirubin Negative, Urine Urobilinogen 0.2, Ur Leukocyte Esterase Negative, Urine RBC Occasional, Urine WBC 3-5, Ur Squamous Epith Cells 5-10, Urine Bacteria Trace 01/12/25 10:33 01/12/25 10:33 Orders (Tests/Meds): ED MEDICATIONS Generic Name Dose Route Start Last Admin Trade Name Freq PRN Reason Stop Dose Admin Potassium Chloride/Water 100 mls @ 50 mls/hr 01/12/25 12:15 01/12/25 12:15 Potassium Chloride 20meq/100ml Ivpb IV 01/12/25 16:14 50 mls/hr Q2H AFSHIN Administration Metronidazole 500 mg in 100 mls @ 100 mls/hr 01/12/25 13:15 Flagyl 500mg/100ml Ivpb IV 01/22/25 13:14 Q8H AFSHIN Sodium Chloride 10 ml 01/12/25 11:15 01/12/25 11:16 Sodium Chloride 0.9% 10ml Syr (Rad Only) IV 02/11/25 11:14 10 ml NEEDED PRN Administration Maintain IV Site Discontinued Medications Generic Name Dose Route Start Last Admin Trade Name Freq PRN Reason Stop Dose Admin Lactated Ringer's 1,000 mls @ 999 mls/hr 01/12/25 10:24 01/12/25 10:43 Lactated Ringer's 1000 Ml Bag IV 01/12/25 11:24 999 mls/hr .Q1H1M ONE Administration Iopamidol 75 ml 01/12/25 11:15 01/12/25 11:16 Iopamidol-370 (76%);100ml Bottle IV 01/12/25 11:16 75 ml ONCE ONE Administration Morphine Sulfate 4 mg 01/12/25 10:24 01/12/25 10:41 Morphine 4mg/Ml Syringe IV 01/12/25 10:25 4 mg ONCE ONE Administration Ondansetron HCl 4 mg 01/12/25 10:24 01/12/25 10:41 Ondansetron 4mg/2ml Vial IV 01/12/25 10:25 4 mg ONCE ONE Administration ORDERS Category Date Time Status CT abdomen pelvis w con Stat Cat Scan 01/12/25 10:25 Completed Complete Blood Count Auto Diff Stat Lab 01/12/25 10:33 Completed Comprehensive Metabolic Panel Stat Lab 01/12/25 10:33 Completed HIV Combo Stat Lab 01/12/25 10:33 Completed Hepatitis C Ab Qual. W/ RFX Stat Lab 01/12/25 10:33 Completed Lactic Acid Stat Lab 01/12/25 10:33 Completed Lipase Stat Lab 01/12/25 10:33 Completed Troponin I Q3H Lab 01/12/25 13:30 Ordered Troponin I Q3H Lab 01/12/25 16:30 Ordered Troponin I Stat Lab 01/12/25 10:33 Completed Urinalysis and Microscopic Stat Lab 01/12/25 12:28 Completed Urine Culture Stat Micro 01/12/25 12:29 Received ECG Data Tracing #1: I reviewed this ECG and interpreted as documented below: Sinus tachycardia with rate 117, normal axis, normal intervals. No noted ST elevation. Medical Decision Narrative: Patient with history and exam per above presenting for evaluation of abdominal and back pain in setting of known UTI for which patient has been on levofloxacin for 4 days. Diagnoses considered include UTI, pyelonephritis, hydronephrosis, intra- abdominal abnormality, enteritis, gastroenteritis, among other ED workup and treatment included: As above Labs were independently interpreted by me, significant for No noted leukocytosis, anemia, thrombocytopenia. Labs significant for hyponatremia, hypokalemia,, hypochloremia, mildly elevated creatinine at 1.4. LFTs within normal limits, bilirubin within normal limits, troponin negative, lipase within normal limits. Given IV fluids as well as IV potassium Imaging was independently visualized and interpreted by me, significant for CT with gallbladder distention, gallbladder wall thickening, inflammatory stranding signs around gallbladder. No noted cholelithiasis however concern for acute cholecystitis. No noted abnormal findings of appendix, kidneys, remainder of exam without acute pathology on my review Please refer to radiology report for full details. My clinical impression at this time is most consistent with hyponatremia, hypokalemia, hypochloremia, elevated creatinine, concern for acute cholecystitis. Discussed with surgeon on-call Dr. Aaron who recommended hospital medicine admission, IV antibiotics and surgery to see her tomorrow. Consulted hospital medicine service spoke with Dr. Gary as patient is a patient of Dr. Chavez, patient accepted to their service with hemodynamically stable vitals. Please see their notes for further details of management. I discussed my clinical impression with patient and answered all questions. At this time, the evidence for any other entities in the differential is insufficient to warrant any further testing or ED observation. This was explained to the patient. The patient was advised that persistent or worsening symptoms require further evaluation. Critical Care Critical Care Time Critical Care Time: No
[2025-01-12] MEDS: MORPHINE 4MG/ML SYRINGE 4 MG IV (10:41)
[2025-01-12] MEDS: ONDANSETRON 4MG/2ML VIAL 4 MG IV (10:41)
--- NOTE | 2025-01-12 10:41 | PC.NURSE ---
Patient not able to have morphine related to increased dizziness. States she does not want it at this time. Unable to undocument at this time.
[2025-01-12] MEDS: LACTATED RINGERS 1000ML 1,000 ML 999 ML IV (10:43)
[2025-01-12 10:47] LABS: Basophils % 0.2 % (0.1-2.0); Eosinophils % 0.3 % (0.1-12.0); Hematocrit 35.6 % (37.0-47.0); Hemoglobin 12.3 g/dL (12.2-16.2); Lymphocytes # 3.4 K/mm3 (0.7-4.5); Lymphocytes % 37.7 % (10-50); Mean Corpuscular HGB Conc 34.6 g/dL (31.8-35.4); Mean Corpuscular Volume 86.8 fl (81-99); Mean Platelet Volume 10.6 fl (7.4-10.4); Monocytes # 0.6 K/mm3 (0.1-1.0); Monocytes % 6.6 % (1.7-9.3); Neutrophils # 4.9 K/mm3 (1.8-7.8); Nucleated Red Blood Cells # 0 10^3/uL; Nucleated Red Blood Cells % 0 %; Platelet Count 236 K/mm3 (142-424); Red Cell Distribution Width-SD 41.2 fL; White Blood Count 8.9 K/mm3 (4.8-10.8)
[2025-01-12 10:52] LABS: Chloride 86 mmol/L (98-107)
[2025-01-12 10:53] LABS: Albumin Level 4.4 g/dl (3.5-5.0); Sodium 123 mmol/L (136-145)
[2025-01-12 10:55] LABS: Blood Urea Nitrogen 9 mg/dl (7-17); Creatinine Clearance Estimated 47 mL/min (50-200); Estimated Glomerular Filt Rate 38 ml/min (>60); GFR (African American) 46 ML/MIN (>60); Lactic Acid 1.2 mmol/L (0.7-2.1); Lipase 75 U/L (23-300)
[2025-01-12 10:56] LABS: Alanine Aminotransferase 15 U/L (12-78); Albumin/Globulin Ratio 1.4 (1.1-1.8); Alkaline Phosphatase 98 U/L (38-126); Anion Gap 12.7 mEq/L (5-15); Aspartate Amino Transferase 20 U/L (14-36); Bilirubin,Total 0.8 mg/dl (0.2-1.3); Calcium 8.8 mg/dl (8.4-10.2); Carbon Dioxide 27 mmol/L (22.0-30.0); Globulin 3.2 g/dL (1.3-3.2); Glucose 127 mg/dl (74-100); Total Protein,Serum 7.6 g/dl (6.3-8.2)
[2025-01-12 11:03] LABS: Potassium 2.7 mmoL/L (3.5-5.1)
[2025-01-12] MEDS: IOPAMIDOL-370 (76%);100ML BOTTLE 75 ML IV (11:16)
[2025-01-12] MEDS: SODIUM CHLORIDE 0.9% 10ML SYR (RAD ONLY) 10 ML IV (11:16)
[2025-01-12 11:23] LABS: Troponin I < 0.01 ng/ml (0.00-0.034)
--- NOTE | 2025-01-12 11:24 | PC.NURSE ---
Dr. Otero notified of K+ of 2.7.
[2025-01-12 11:41] LABS: HIV Combo NEGATIVE (Negative)
[2025-01-12 11:49] LABS: Hepatitis C Ab Qual. W/ RFX NEGATIVE (Negative)
[2025-01-12] MEDS: KCl 20mEq/100ml 100 ML 50 MEQ IV ×2 (12:15→16:03)
[2025-01-12 12:37] LABS: Microscopic, Urine URINE MICROSCOPIC (MICROSCOPIC)
[2025-01-12 12:39] LABS: Appearance,Urine CLEAR (Clear); Bilirubin,Urine Negative (Negative); Blood, Urine TRACE-I (Negative); Color,Urine YELLOW (Yellow); Glucose,Urine (UA) Negative (Negative); Ketones,Urine Negative (Negative); Leukocyte Esterase,Urine Negative (Negative); Nitrate,Urine Negative (Negative); PH,Urine 6.5 (5.0-8.5); Protein,Urine Negative (Negative); Urobilinogen,Urine 0.2 EU/dl (0.2)
--- NOTE | 2025-01-12 12:58 | PC.NURSE ---
Dr Otero s/w Dr Aaron for gen surgery consult for acute cholecystitis
[2025-01-12 13:05] LABS: Bacteria,Urine Trace /lpf; RBC,Urine Occasional #/hpf (0-3)
--- NOTE | 2025-01-12 14:19 | [facility].PHAINT1 ---
Pharmacy Intervention Comments: MEDICATION RECONCILIATION COMPLETED ON PATIENT USING EXTERNAL FILL HISTORY FROM PHARMACY. -KEEGAN RAY, FIDED
[2025-01-12] MEDS: METRONIDAZ/SOD CHL 500 MG/100 ML PIGGYBACK 100 MG IV ×2 (14:40→22:23)
[2025-01-12] MEDS: METOPROLOL TARTRATE 50MG TABLET 100 MG PO (16:02)
[2025-01-12] MEDS: ACETAMINOPHEN 325MG TAB 650 MG PO (22:23)
[2025-01-13] VITALS (7 sets, daily range): BP systolic 105–161; BP diastolic 53–83; PULSE 60–86; RESP 15–18; TEMP 36.4–36.7; O2SAT 96–99; BMI 29.0
[2025-01-13] MEDS: METRONIDAZ/SOD CHL 500 MG/100 ML PIGGYBACK 100 MG IV ×3 (04:50→20:23)
--- NOTE | 2025-01-13 06:23 | PC.NURSE ---
Pt has rested well this shift and has tolerated antibiotics well. Pt has c/o mild to moderate lower back pain and was treated per NOV. Pt has had no acute changes to note
--- NOTE | 2025-01-13 07:21 | US_ITS ---
FINAL REPORT TECHNIQUE: Sonographic images of the right upper quadrant were obtained. CLINICAL HISTORY: Possible acute cholecystitis per CT scan COMPARISON: 01/12/2025 FINDINGS: PANCREAS: Unremarkable. LIVER: Homogeneous. No focal hepatic lesion. No intrahepatic biliary ductal dilatation. GALLBLADDER: Gallbladder is distended. A gallstone is seen in the neck of the gallbladder. There is a very small amount of fluid adjacent to the gallbladder with mild gallbladder wall thickening. COMMON DUCT: 6 mm. Normal for age. RIGHT KIDNEY: The right kidney measures 8.5 cm. There is no hydronephrosis, mass, or stone. IMPRESSION: Distended gallbladder with gallstones, mild gallbladder wall thickening and possible small amount of fluid. Cholecystitis suspected. Reviewed, Interpreted and Dictated by Dora Sanders MD Transcribed by Carito James Authenticated and [facility]
--- NOTE | 2025-01-13 07:28 | EXP.SURG.CON ---
History of Present Illness *Admission Date: 01/12/25 *Reason for visit:: Back pain; abdominal pain; possible cholecystitis *History of present illness: This is a 64-year-old female seen in consultation after evaluation emergency department for abdominal pain and lower back pain. Please see HPI forwarded from emergency department evaluation below. Currently she states that she feels a little better . She states that her back pain is worse than the belly pain . She does continue to have some vague abdominal pain and reports occasional postprandial nausea. No fevers. No jaundice. Forwarded from emergency department evaluation: General Chief complaint: Back Pain/Injury Stated complaint: bacterial infection in urine, pain in lower back Time Seen by Provider: 01/12/25 10:09 Mode of Arrival: Wheelchair Source of Information: Patient Description of Symptoms (Recalled from ER Triage Doc. by RN): Patient reports she was diagnosed with a UTI 4 days ago and has been taking her antibiotic as prescribed. Presents today with lower back pain. States she does have a history of bad discs . History of Present Illness HPI narrative: 64-year-old female past medical history of hypertension, chronic back pain presents to ED with abdominal pain, lower back pain. Was diagnosed with urinary tract infection 4 days ago started on levofloxacin. Since then has had diarrhea, nausea. Denies fevers. Pain in back has worsened today leading to her coming to ER for further evaluation. Denies chest pain, shortness of breath, dysuria, other symptoms or concerns at this time Please note that above description of symptoms, in this electronic medical record under categorization of recalled from ER triage doctor by RN are reflective of an initial nursing assessment, however, is not reflective of my full history and physical exam that was personally taken and clarified. Consequentially, this preceding description of symptoms, which may include the patient's categorized chief complaint in the EMR, do not reflect my personal clinical impression, and the ultimate description of history of present illness and patient stated complaints should be deferred to this section of the note. Unless stated otherwise or congruent with this section of the note, additional signs, symptoms, or incongruence should be interpreted as inaccurate with my clinical impression. PFSH PFSH Disclaimer: The information contained in this section may have been updated after the patient was seen, as this information can be updated by other users. Medical History (Updated 01/13/25 @ 07:34 by Phoenix Aaron MD) Hyperlipidemia Endocarditis Hypothyroid Family History (Updated 01/12/25 @ 16:29 by Maraina Frank RN) Dementia Hyperlipidemia Heart attack Breast cancer Thyroid disorder Social History (Updated 01/12/25 @ 16:29 by Mariana Frank RN) Smoking Status: Never smoker alcohol intake: never substance use type: denies use current occupational status: employed Travel in the last 8 weeks?: None Have you lived/traveled outside US in past 30 days?: No Contact w/someone who lives/traveled outside US past 30 days?: No Exposure to someone with infectious disease in past 14 days?: No Do you have a fever (greater than 100.4 F or 38 C)?: No Have you tested positive for COVID-19?: No Exposed to someone with COVID-19 in past 14 days?: No Do you have a sore throat?: No Do you have a cough?: No Do you have any weakness?: No Do you have any diarrhea?: No Are you experiencing any unusual bleeding?: No Do you have any muscle aches/pain?: No Do you have any abdominal pain?: No Are you experiencing loss of taste or smell?: No Meds Home Medications and Allergies Home Medications ?Medication ?Instructions ?Recorded ?Confirmed ?Type amlodipine 5 mg tablet 5 mg PO HS 02/07/24 01/12/25 History estradiol 0.5 mg tablet 0.5 mg PO DAILY 02/07/24 01/12/25 History fluticasone propionate 50 1 spray intranasal BID 02/07/24 01/12/25 History mcg/actuation nasal spray,suspension levothyroxine 50 mcg tablet 50 mcg PO DAILY 02/07/24 01/12/25 History lisinopril 20 1 tab PO DAILY 02/07/24 01/12/25 History mg-hydrochlorothiazide 12.5 mg tablet loratadine 10 mg tablet 10 mg PO DAILY 02/07/24 01/12/25 History metoprolol tartrate 100 mg tablet 100 mg PO BID 02/07/24 01/12/25 History naproxen 500 mg tablet 500 mg PO BID 02/07/24 01/12/25 History rosuvastatin 20 mg tablet 20 mg PO HS 02/07/24 01/12/25 History hyoscyamine sulfate 0.125 mg 0.125 mg sublingual Q4HP PRN 01/12/25 01/12/25 History disintegrating tablet Abdominal Discomfort levofloxacin 500 mg tablet 500 mg PO DAILY 01/12/25 01/12/25 History omeprazole 20 mg capsule,delayed 20 mg PO DAILY 01/12/25 01/12/25 History release ondansetron 4 mg disintegrating 4 mg PO TIDP PRN nausea and 01/12/25 01/12/25 History tablet vomiting New Prescriptions to Start Prescriptions: Allergies Allergy/AdvReac Type Severity Reaction Status Date / Time metoclopramide (From Reglan) Allergy Severe S-BLISTERS Verified 01/22/18 14:25 IN MOUTH Penicillins Allergy Severe S-BLISTERS Verified 01/22/18 14:25 IN MOUTH Sulfa (Sulfonamide Allergy Severe S-BLISTERS Verified 01/22/18 14:25 Antibiotics) IN MOUTH Exam (Inpt) Vital signs and Labs for Last 24 Hours: Temp Pulse Resp BP Pulse Ox O2 Del Method 97.7 F 70 16 105/55 L 98 Room Air 01/13/25 04:00 01/13/25 04:00 01/13/25 04:00 01/13/25 04:00 01/13/25 04:00 01/13/25 06:43 Laboratory Results - last 24 hr 01/12/25 10:33: WBC 8.9, RBC 4.10 L, Hgb 12.3, Hct 35.6 L, MCV 86.8, MCH 30.0, MCHC 34.6, RDW 13.0, Plt Count 236, MPV 10.6 H, Neut % (Auto) 55.0, Lymph % (Auto) 37.7, [place] % (Auto) 6.6, Eos % (Auto) 0.3, Baso % (Auto) 0.2, Neut # (Auto) 4.9, Lymph # (Auto) 3.4, [place] # (Auto) 0.6, Eos # (Auto) 0.0, Baso # (Auto) 0.0, Sodium 123 L, Potassium 2.7 L*, Chloride 86 L, Carbon Dioxide 27, Anion Gap 12.7, BUN 9, Creatinine 1.40 H, Estimated Creat Clear 47, Estimated GFR 38 L, Est GFR ( Amer) 46 L, Glucose 127 H, Lactate 1.2, Calcium 8.8, Total Bilirubin 0.8, AST 20, ALT 15, Alkaline Phosphatase 98, Troponin I < 0.01, Total Protein 7.6, Albumin 4.4, Globulin 3.2, Albumin/Globulin Ratio 1.4, Lipase 75, HCV Ab ALONZO w/Rflx PCR Qn Negative, HIV Ag/Ab Combo Qual Negative 01/12/25 12:28: Urine Color Yellow, Urine Appearance Clear, Urine pH 6.5, Ur Specific [place] 1.010, Urine Protein Negative, Urine Glucose (UA) Negative, Urine Ketones Negative, Urine Blood Trace-i, Urine Nitrate Negative, Urine Bilirubin Negative, Urine Urobilinogen 0.2, Ur Leukocyte Esterase Negative, Urine RBC Occasional, Urine WBC 3-5, Ur Squamous Epith Cells 5-10, Urine Bacteria Trace I & O for Labs for Last 24 Hours: Intake & Output 01/10/25 01/11/25 01/12/25 01/13/25 11:59 11:59 11:59 11:59 Intake Total 815 / 815 Output Total 0 / 0 Balance 815 / 815 Weight 166 lb 164 lb Constitutional: no acute distress Respiratory: Absent respiratory distress Cardiac: Absent Tachycardia GI: Present soft and tenderness (Tenderness to moderate/deep palpation in the right upper quadrant. Tenderness also noted throughout the mid/lower abdomen bilaterally.) Results Labs 01/12/25 10:33 01/12/25 10:33 Labs: Laboratory Results - last 24 hr 01/12/25 10:33: WBC 8.9, RBC 4.10 L, Hgb 12.3, Hct 35.6 L, MCV 86.8, MCH 30.0, MCHC 34.6, RDW 13.0, Plt Count 236, MPV 10.6 H, Neut % (Auto) 55.0, Lymph % (Auto) 37.7, [place] % (Auto) 6.6, Eos % (Auto) 0.3, Baso % (Auto) 0.2, Neut # (Auto) 4.9, Lymph # (Auto) 3.4, [place] # (Auto) 0.6, Eos # (Auto) 0.0, Baso # (Auto) 0.0, Sodium 123 L, Potassium 2.7 L*, Chloride 86 L, Carbon Dioxide 27, Anion Gap 12.7, BUN 9, Creatinine 1.40 H, Estimated Creat Clear 47, Estimated GFR 38 L, Est GFR ( Amer) 46 L, Glucose 127 H, Lactate 1.2, Calcium 8.8, Total Bilirubin 0.8, AST 20, ALT 15, Alkaline Phosphatase 98, Troponin I < 0.01, Total Protein 7.6, Albumin 4.4, Globulin 3.2, Albumin/Globulin Ratio 1.4, Lipase 75, HCV Ab ALONZO w/Rflx PCR Qn Negative, HIV Ag/Ab Combo Qual Negative 01/12/25 12:28: Urine Color Yellow, Urine Appearance Clear, Urine pH 6.5, Ur Specific [place] 1.010, Urine Protein Negative, Urine Glucose (UA) Negative, Urine Ketones Negative, Urine Blood Trace-i, Urine Nitrate Negative, Urine Bilirubin Negative, Urine Urobilinogen 0.2, Ur Leukocyte Esterase Negative, Urine RBC Occasional, Urine WBC 3-5, Ur Squamous Epith Cells 5-10, Urine Bacteria Trace Assessment and Plan *Assessment and plan (1) Acute acalculous cholecystitis: Status: Acute Category: Medical Code(s): K81.0 - Acute cholecystitis Plan: Likely to at least be partially related to current symptomatology. The patient is aware that biliary disease is not responsible for her chronic (acute on chronic) lower back pain. Formal ultrasound ordered I have had a long discussion with the patient concerning risks and benefits of cholecystectomy. She wishes to proceed; however, she wants to wait until tomorrow when (her) kids come in . She will tentatively be scheduled for laparoscopic cholecystectomy at approximately 10 AM tomorrow (pending results of ultrasound, response to hypokalemia treatment, etc.). (2) Acute hypokalemia: Status: Acute Category: Medical Code(s): E87.6 - Hypokalemia Plan: Treatment as per primary service. Follow-up pending a.m. labs. Plan to hold off on surgical intervention until potassium is at least 3.0. (3) Acute hyponatremia: Status: Acute Category: Medical Code(s): E87.1 - Hypo-osmolality and hyponatremia (4) Back pain: Status: Chronic Qualifiers: Back pain location: low back pain Chronicity: chronic Back pain laterality: bilateral Sciatica presence: unspecified whether sciatica present Qualified Code(s): M54.50 - Low back pain, unspecified; G89.29 - Other chronic pain Category: Medical Code(s): M54.9 - Dorsalgia, unspecified Plan: Management as per primary service
[2025-01-13 07:41] LABS: Basophils % 0.6 % (0.1-2.0); Eosinophils % 0.6 % (0.1-12.0); Hematocrit 30.3 % (37.0-47.0); Lymphocytes # 1.8 K/mm3 (0.7-4.5); Lymphocytes % 37.4 % (10-50); Mean Corpuscular Hemoglobin 30.4 pg (27.0-31.2); Mean Corpuscular Volume 89.4 fl (81-99); Mean Platelet Volume 10.8 fl (7.4-10.4); Monocytes # 0.3 K/mm3 (0.1-1.0); Monocytes % 6.5 % (1.7-9.3); Neutrophils # 2.6 K/mm3 (1.8-7.8); Neutrophils % 54.7 % (37.0-80.0); Nucleated Red Blood Cells # 0 10^3/uL; Nucleated Red Blood Cells % 0 %; Platelet Count 242 K/mm3 (142-424); Red Blood Count 3.39 M/mm3 (4.20-5.40); Red Cell Distribution Width 13.4 % (11.5-17.5); Red Cell Distribution Width-SD 43.6 fL; White Blood Count 4.8 K/mm3 (4.8-10.8)
[2025-01-13 07:47] LABS: Chloride 99 mmol/L (98-107)
[2025-01-13 07:48] LABS: Albumin Level 3.4 g/dl (3.5-5.0); Potassium 3.4 mmoL/L (3.5-5.1); Sodium 131 mmol/L (136-145)
[2025-01-13 07:49] LABS: Hemoglobin 10.2 g/dL (12.2-16.2)
[2025-01-13 07:50] LABS: Blood Urea Nitrogen 7 mg/dl (7-17); Creatinine Clearance Estimated 59 mL/min (50-200); Estimated Glomerular Filt Rate 50 ml/min (>60); GFR (African American) 60 ML/MIN (>60)
[2025-01-13 07:51] LABS: Alanine Aminotransferase 9 U/L (12-78); Albumin/Globulin Ratio 1.3 (1.1-1.8); Alkaline Phosphatase 69 U/L (38-126); Anion Gap 6.4 mEq/L (5-15); Aspartate Amino Transferase 17 U/L (14-36); Bilirubin,Total 0.2 mg/dl (0.2-1.3); Calcium 8.4 mg/dl (8.4-10.2); Carbon Dioxide 29 mmol/L (22.0-30.0); Globulin 2.7 g/dL (1.3-3.2); Glucose 83 mg/dl (74-100); Total Protein,Serum 6.1 g/dl (6.3-8.2)
--- NOTE | 2025-01-13 07:58 | P.HP_ITS ---
History of Present Illness *Admission Date: 01/12/25 *Reason for visit:: nausea/vomiting /diarrhea/abdominal pain *History of present illness: Ms. Brooke Lay is a 64-year-old female well-known to [facility] with a history of hypertension, mitral valve prolapse, bicuspid aortic valve, hypothyroidism, GERD, degenerative disc disease of the lumbar spine who presented to [facility] emergency room after experiencing several days of nausea, vomiting, and diarrhea. She describes some abdominal pain and no fever. She has been voiding QS although she has chronic bladder issues with hesitancy, dysuria, and frequency. She was seen in the office of [facility] on 01/09/2025 and started on Levaquin for leukocytosis, her abdominal pain and empirically for urinary tract infection. Her urine culture did come back negative. She notes that she has been having diarrhea for over a week prior to the start of the antibiotic. She has been going 3 or 4 times a day and recently 2 or 3 times a day and describes it as green and yellow stool. She has been out unable to retain any food and has been mostly on clear liquids for the past 4 to 5 days. She does have chronic low back pain which has worsened. She was seen for this in the office as well and was started on a Medrol Dosepak which did help. Her NSAIDs were discontinued due to a slight worsening of her renal function. With labs last week in the office her BMP revealed a BUN of 9 and a creatinine of 0.95. All liver function studies were normal. She did have a low sodium of 129. CBC at that time showed a white count elevated at 12,700 with a hemoglobin of 12.7 hematocrit of 38.6. With evaluation in the emergency room she was found to be afebrile with tachycardia with a high heart rate of 129. Hemoglobin at that time was 12.3 with hematocrit of 35.6 and white blood cell count of 8900. BUN was 9 and creatinine was 1.4 ; potassium was low at 2.7 and sodium was 123. She was given a dose of Flagyl and IV potassium and a liter of lactated Ringer's. She had morphine sulfate for pain 4 mg and [address] IV[address] of the abdomen/pelvis showed distended gallbladder with wall thickening and adjacent inflammatory changes compatible with acute cholecystitis. She has been seen by Dr. Elliott this morning who ordered right upper quadrant ultrasound. He did discuss cholecystectomy with her. This a.m. patient has been able to sleep during the night. She describes belching and passing gas. She has had 2 liquid stools since admission. She has had some nausea after clear liquids last evening but no vomiting. Her biggest complaint this morning is her lower back pain.White blood cell count this a.m. is 4800 with a hemoglobin of 10.2 hematocrit of 30.3. Sodium is improved to 131 with a potassium of 3.4 BUN is 7 and creatinine is 1.10. Lipase is noted to be normal at 75. Repeat urine cultures pending. . PFSH PFSH Disclaimer: The information contained in this section may have been updated after the patient was seen, as this information can be updated by other users. Medical History (Updated 01/13/25 @ 11:53 by Noman Valentine MD) Lumbar degenerative disc disease GERD (gastroesophageal reflux disease) Hypertension Hyperlipidemia Endocarditis Hypothyroid Surgical History (Updated 01/13/25 @ 08:46 by Kimmy Carvalho APRN) H/O: hysterectomy Family History (Updated 01/12/25 @ 16:29 by Mariana Frank RN) Other Breast cancer Dementia Heart attack Hyperlipidemia Thyroid disorder Social History (Updated 01/12/25 @ 16:29 by Mariana Frank RN) Smoking Status: Never smoker alcohol intake: never substance use type: denies use current occupational status: employed Travel in the last 8 weeks?: None Have you lived/traveled outside US in past 30 days?: No Contact w/someone who lives/traveled outside US past 30 days?: No Exposure to someone with infectious disease in past 14 days?: No Do you have a fever (greater than 100.4 F or 38 C)?: No Have you tested positive for COVID-19?: No Exposed to someone with COVID-19 in past 14 days?: No Do you have a sore throat?: No Do you have a cough?: No Do you have any weakness?: No Do you have any diarrhea?: No Are you experiencing any unusual bleeding?: No Do you have any muscle aches/pain?: No Do you have any abdominal pain?: No Are you experiencing loss of taste or smell?: No Other Medical History Have you received the Flu Vaccine for this season: No Have you received the Pneumonia Vaccine: No Review of Systems Constitutional Constitutional: Denies body ache(s), Denies chills, Denies fever(s), Denies frequent falls, Denies headache(s) and Reports poor appetite Eyes Eyes: Denies change in vision ENT Ears, Nose, Mouth, and Throat: Reports dizziness, Denies dysphagia, Reports otalgia, Denies headache(s), Reports nasal congestion, Reports nasal discharge, Reports post nasal drip and Denies sore throat *Cardiovascular Cardiovascular: Denies chest pain, Denies dyspnea and Denies irregular heart rhythm *Respiratory Respiratory: Denies chest congestion, Denies cough and Denies dyspnea *Gastrointestinal Gastrointestinal: Reports abdominal pain, Reports belching, Denies bloating, Reports change in bowel habits, Reports change in stool character, Denies constipation, Reports diarrhea, Denies dyspepsia, Denies dysphagia, Denies heartburn, Denies hematemesis, Denies melena, Reports nausea and Reports vomiting *Genitourinary Genitourinary: Reports difficulty voiding (Hesitancy) and Reports dysuria *Musculoskeletal Musculoskeletal: Reports abnormal gait (Due to back pain) and Reports back pain (Longstanding history of degenerative disc disease) *Neurologic Neurologic: Reports abnormal gait (Due to back pain), Reports dizziness, Denies frequent falls, Denies headache(s), Denies seizure-like activity and Denies tremor(s) Meds Home Medications and Allergies Home Medications ?Medication ?Instructions ?Recorded ?Confirmed ?Type amlodipine 5 mg tablet 5 mg PO HS 02/07/24 01/12/25 History estradiol 0.5 mg tablet 0.5 mg PO DAILY 02/07/24 01/12/25 History fluticasone propionate 50 1 spray intranasal BID 02/07/24 01/12/25 History mcg/actuation nasal spray,suspension levothyroxine 50 mcg tablet 50 mcg PO DAILY 02/07/24 01/12/25 History lisinopril 20 1 tab PO DAILY 02/07/24 01/12/25 History mg-hydrochlorothiazide 12.5 mg tablet loratadine 10 mg tablet 10 mg PO DAILY 02/07/24 01/12/25 History metoprolol tartrate 100 mg tablet 100 mg PO BID 02/07/24 01/12/25 History naproxen 500 mg tablet 500 mg PO BID 02/07/24 01/12/25 History rosuvastatin 20 mg tablet 20 mg PO HS 02/07/24 01/12/25 History hyoscyamine sulfate 0.125 mg 0.125 mg sublingual Q4HP PRN 01/12/25 01/12/25 History disintegrating tablet Abdominal Discomfort levofloxacin 500 mg tablet 500 mg PO DAILY 01/12/25 01/12/25 History omeprazole 20 mg capsule,delayed 20 mg PO DAILY 01/12/25 01/12/25 History release ondansetron 4 mg disintegrating 4 mg PO TIDP PRN nausea and 01/12/25 01/12/25 History tablet vomiting New Prescriptions to Start Prescriptions: Allergies Allergy/AdvReac Type Severity Reaction Status Date / Time metoclopramide (From Reglan) Allergy Severe S-BLISTERS Verified 01/22/18 14:25 IN MOUTH Penicillins Allergy Severe S-BLISTERS Verified 01/22/18 14:25 IN MOUTH Sulfa (Sulfonamide Allergy Severe S-BLISTERS Verified 01/22/18 14:25 Antibiotics) IN MOUTH Exam Data for Last 24 hours Vital signs and Labs for Last 24 Hours: Temp Pulse Resp BP Pulse Ox O2 Del Method 97.7 F 70 16 105/55 L 98 Room Air 01/13/25 04:00 01/13/25 04:00 01/13/25 04:00 01/13/25 04:00 01/13/25 04:00 01/13/25 06:43 Laboratory Results - last 24 hr 01/12/25 10:33: WBC 8.9, RBC 4.10 L, Hgb 12.3, Hct 35.6 L, MCV 86.8, MCH 30.0, MCHC 34.6, RDW 13.0, Plt Count 236, MPV 10.6 H, Neut % (Auto) 55.0, Lymph % (Auto) 37.7, Saline % (Auto) 6.6, Eos % (Auto) 0.3, Baso % (Auto) 0.2, Neut # (Au to) 4.9, Lymph # (Auto) 3.4, Saline # (Auto) 0.6, Eos # (Auto) 0.0, Baso # (Auto) 0.0, Sodium 123 L, Potassium 2.7 L*, Chloride 86 L, Carbon Dioxide 27, Anion Gap 12.7, BUN 9, Creatinine 1.40 H, Estimated Creat Clear 47, Estimated GFR 38 L, Est GFR ( Amer) 46 L, Glucose 127 H, Lactate 1.2, Calcium 8.8, Total Bilirubin 0.8, AST 20, ALT 15, Alkaline Phosphatase 98, Troponin I < 0.01, Total Protein 7.6, Albumin 4.4, Globulin 3.2, Albumin/Globulin Ratio 1.4, Lipase 75, HCV Ab ALONZO w/Rflx PCR Qn Negative, HIV Ag/Ab Combo Qual Negative 01/12/25 12:28: Urine Color Yellow, Urine Appearance Clear, Urine pH 6.5, Ur Specific [place] 1.010, Urine Protein Negative, Urine Glucose (UA) Negative, Urine Ketones Negative, Urine Blood Trace-i, Urine Nitrate Negative, Urine Bilirubin Negative, Urine Urobilinogen 0.2, Ur Leukocyte Esterase Negative, Urine RBC Occasional, Urine WBC 3-5, Ur Squamous Epith Cells 5-10, Urine Bacteria Trace 01/13/25 06:45: WBC 4.8 D, RBC 3.39 L, Hgb 10.2 L D, Hct 30.3 L, MCV 89.4, MCH 30.4, MCHC 34.0, RDW 13.4, Plt Count 242, MPV 10.8 H, Neut % (Auto) 54.7, Lymph % (Auto) 37.4, Saline % (Auto) 6.5, Eos % (Auto) 0.6, Baso % (Auto) 0.6, Neut # (Auto) 2.6, Lymph # (Auto) 1.8, Saline # (Auto) 0.3, Eos # (Auto) 0.0, Baso # (Auto) 0.0, Sodium 131 L, Potassium 3.4 L D, Chloride 99, Carbon Dioxide 29, Anion Gap 6.4, BUN 7, Creatinine 1.10 H D, Estimated Creat Clear 59, Estimated GFR 50 L, Est GFR ( Amer) 60 D, Glucose 83 D, Calcium 8.4, Total Bilirubin 0.2, AST 17, ALT 9 L D, Alkaline Phosphatase 69, Total Protein 6.1 L, Albumin 3.4 L D, Globulin 2.7, Albumin/Globulin Ratio 1.3 I & O for Last 24 hours: Intake & Output 01/10/25 01/11/25 01/12/25 01/13/25 11:59 11:59 11:59 11:59 Intake Total 815 / 815 Output Total 0 / 0 Balance 815 / 815 Weight 166 lb 164 lb Constitutional Constitutional: no acute distress *Routine HEENT Exam Head: Present normocephalic and atraumatic Eye: Present PERRL; Absent conjunctival icterus, scleral injection or conjunctivae pink ENT: Present mucous membranes moist *Routine Neck Exam Neck: Present supple; Absent carotid bruit, lymphadenopathy or thyromegaly *Routine Respiratory Exam Respiratory: Present CTA bilaterally (Anteriorly and posteriorly) *Routine Cardiovascular Exam Cardiovascular: Present RRR (Monitor showing sinus rhythm in the 70s) *Routine Abdominal Exam Abdominal: Present soft, normoactive bowel sounds and tenderness (Right upper q uadrant); Absent distended or guarding *Routine Rectal Exam Rectal:: deferred *Routine Genitalia Exam Genitalia:: deferred *Routine Extremities Exam Extremities: Present pulses intact; Absent edema or calf tenderness Routine Back/Spine/Pelvis Exam Back/Spine: Present paraspinal tenderness *Routine Neurological Exam Neurological: Present alert and oriented X3 Assessment and Plan *Assessment and plan (1) Acute cholecystitis: Status: Acute Category: Medical Code(s): K81.0 - Acute cholecystitis (2) Cholelithiasis: Status: Acute Qualifiers: Cholelithiasis location: gallbladder Cholecystitis presence: with cholecystitis Cholecystitis acuity: acute Biliary obstruction: without biliary obstruction Qualified Code(s): K80.00 - Calculus of gallbladder with acute cholecystitis without obstruction Category: Medical Code(s): K80.20 - Calculus of gallbladder without cholecystitis without obstruction (3) Acute hypokalemia: Status: Acute Category: Medical Code(s): E87.6 - Hypokalemia Plan: Treatment as per primary service. Follow-up pending a.m. labs. Plan to hold off on surgical intervention until potassium is at least 3.0. (4) Acute hyponatremia: Status: Acute Category: Medical Code(s): E87.1 - Hypo-osmolality and hyponatremia (5) Back pain: Status: Chronic Qualifiers: Back pain laterality: bilateral Back pain location: low back pain Chronicity: chronic Sciatica presence: unspecified whether sciatica present Qualified Code(s): M54.50 - Low back pain, unspecified; G89.29 - Other chronic p ain Category: Medical Code(s): M54.9 - Dorsalgia, unspecified Plan: Management as per primary service (6) Vomiting and diarrhea: Status: Acute Category: Medical Code(s): R11.10 - Vomiting, unspecified; R19.7 - Diarrhea, unspecified Plan Will give additional IV potassium. Patient has been seen by Dr. Elliott, surgeon, who discussed cholecystectomy with her. Will have a right upper quadrant ultrasound this a.m. Dr. Valentine entry - Saw patient, agree with above note, ultrasound report reviewed.
[2025-01-13] MEDS: KCl 20mEq/100ml 100 ML 50 MEQ IV (09:50)
[2025-01-13] MEDS: ACETAMINOPHEN 325MG TAB 650 MG PO (11:52)
[2025-01-13 13:34] LABS: Adenovirus F 40/41, stool Not Detected (NotDetected); Astrovirus Not Detected (NotDetected); Campylobacter Not Detected (NotDetected); Clostridium Difficile A/B, PCR Not Detected (NotDetected); Cryptosporidium Not Detected (NotDetected); Cyclospora Cayetanesis Not Detected (NotDetected); Entamoeba histolytica Not Detected (NotDetected); Enteroaggregative E coli Not Detected (NotDetected); Enteropathogenic E coli Not Detected (NotDetected); Enterotoxigenic E coli Not Detected (NotDetected); Giardia lamblia Not Detected (NotDetected); Norovirus Not Detected (NotDetected); Plesimonas Shigalloides, PCR Not Detected (NotDetected); Rotavirus A Not Detected (NotDetected); Salmonella, PCR Not Detected (NotDetected); Sapovirus Not Detected (NotDetected); Shiga-like toxin E coli Not Detected (NotDetected); Shigella Enterovasive E coli Not Detected (NotDetected); Vibrio Cholerae Not Detected (NotDetected); Vibrio, PCR Not Detected (NotDetected); Yersinia Entercolitica, PCR Not Detected (NotDetected)
--- NOTE | 2025-01-13 17:34 | PC.NURSE ---
Pt is A&Ox4. Vital signs stable tolerating room air. IV abx infused per NOV. Pt complains of abdominal and back pain. Pt requests tylenol for pain. Administered per NOV. Diarrhea panel sent. Pt has tolerated clear liquids today. NPO at midnight for scheduled lap mendy tomorrow. Consent signed in chart. Ambulating with standy assist to bathroom. Pt lying supine comfortably in bed with no further needs voiced at this time. Call light within reach.
[2025-01-14] VITALS (17 sets, daily range): BP systolic 114–165; BP diastolic 68–100; PULSE 72–105; RESP 16–18; TEMP 35.9–43; O2SAT 93–99; BMI 28.6
[2025-01-14] MEDS: METRONIDAZ/SOD CHL 500 MG/100 ML PIGGYBACK 100 MG IV ×3 (05:23→21:26)
[2025-01-14] MEDS: ACETAMINOPHEN 325MG TAB 650 MG PO (05:40)
--- NOTE | 2025-01-14 06:19 | PC.NURSE ---
Pt A&OX4 and has tolerated room air. Lung sounds clear and bowel sounds active. She has received IV ABX. She Has remained NPO since midnight for Lap cholecystectomy. She has not had any N/V. She did complain of neck pain once and was medicated per MAR. No further needs at this time, call light within reach.
[2025-01-14 06:31] LABS: MANUAL DIFFERENTIAL MANUAL DIFFERENTIAL (MANUAL DIFF)
--- NOTE | 2025-01-14 06:32 | P.PN_ITS ---
Subjective Narrative: Feels about the same Exam Data for Last 24 hours Vital signs and Labs for Last 24 Hours: Temp Pulse Resp BP Pulse Ox O2 Del Method 97.7 F 76 16 145/78 H 96 Room Air 01/14/25 04:00 01/14/25 04:00 01/14/25 04:00 01/14/25 04:00 01/14/25 04:00 01/14/25 05:00 Laboratory Results - last 24 hr 01/13/25 06:45: WBC 4.8 D, RBC 3.39 L, Hgb 10.2 L D, Hct 30.3 L, MCV 89.4, MCH 30.4, MCHC 34.0, RDW 13.4, Plt Count 242, MPV 10.8 H, Neut % (Auto) 54.7, Lymph % (Auto) 37.4, [place] % (Auto) 6.5, Eos % (Auto) 0.6, Baso % (Auto) 0.6, Neut # (Auto) 2.6, Lymph # (Auto) 1.8, [place] # (Auto) 0.3, Eos # (Auto) 0.0, Baso # (Auto) 0.0, Sodium 131 L, Potassium 3.4 L D, Chloride 99, Carbon Dioxide 29, Anion Gap 6.4, BUN 7, Creatinine 1.10 H D, Estimated Creat Clear 59, Estimated GFR 50 L, Est GFR ( Amer) 60 D, Glucose 83 D, Calcium 8.4, Total Bilirubin 0.2, AST 17, ALT 9 L D, Alkaline Phosphatase 69, Total Protein 6.1 L, Albumin 3.4 L D, Globulin 2.7, Albumin/Globulin Ratio 1.3 01/13/25 13:20: Stl C. cayetanensis PCR Not detected, Stool Rotavirus (PCR) Not detected, Stl Adenov F 40/41 PCR Not detected, Stool Astrovirus (PCR) Not detected, Stool Campylobacter PCR Not detected, Stl C.difficile Tox PCR Not detected, Stool Cryptosporidium PCR Not detected, Stl E.coli Shiga Tox PCR Not detected, Stool E coli O157 PCR Not detected, Stl Enterotoxigenic E PCR Not detected, Stool EPEC (PCR) Not detected, Stool EAEC (PCR) Not detected, Stl E. histolytica PCR Not detected, Stool Giardia Lamblia PCR Not detected, Stool Salmonella PCR Not detected, Stool Sapovirus (PCR) Not detected, Stl P. shigelloides PCR Not detected, Stl Shigella/EIEC PCR Not detected, St Y.enterocolitica PCR Not detected, Stool Vibrio (PCR) Not detected, Stl Vibrio cholerae PCR Not detected, Stl Norovirus GI/GII PCR Not detected I & O for Last 24 hours: Intake & Output 01/11/25 01/12/25 01/13/25 01/14/25 11:59 11:59 11:59 11:59 Intake Total 815 / 815 920 / 920 Output Total 0 / 0 0 / 0 Balance 815 / 815 920 / 920 Weight 166 lb 164 lb 161 lb 9.6 oz Constitutional Constitutional: no acute distress *Routine Respiratory Exam Respiratory: Absent respiratory distress *Routine Cardiovascular Exam Cardiovascular: Absent tachycardia *Routine Abdominal Exam Abdominal: Present soft and tenderness Progress Note: A&P Assessment and plan (1) Acute cholecystitis: Status: Acute Assessment and plan: Cholecystectomy later today I have discussed the risks and benefits including, but not limited to: Bleeding Infection Damage to surrounding tissue Inherent risks of sedation The patient agrees to proceed. (2) Cholelithiasis: Status: Acute (3) Acute hypokalemia: Status: Acute (4) Acute hyponatremia: Status: Acute (5) Back pain: Status: Chronic (6) Vomiting and diarrhea: Status: Acute
[2025-01-14 06:37] LABS: Basophils % 0.6 % (0.1-2.0); Eosinophils # 0.1 Kmm3 (0.0-0.4); Eosinophils % 0.7 % (0.1-12.0); Hematocrit 32.3 % (37.0-47.0); Lymphocytes # 2.7 K/mm3 (0.7-4.5); Lymphocytes % 38.7 % (10-50); Mean Corpuscular HGB Conc 34.1 g/dL (31.8-35.4); Mean Corpuscular Hemoglobin 29.9 pg (27.0-31.2); Mean Corpuscular Volume 87.8 fl (81-99); Mean Platelet Volume 10.5 fl (7.4-10.4); Monocytes # 0.4 K/mm3 (0.1-1.0); Monocytes % 5.4 % (1.7-9.3); Neutrophils # 3.8 K/mm3 (1.8-7.8); Neutrophils % 54.5 % (37.0-80.0); Platelet Count 259 K/mm3 (142-424); Red Blood Count 3.68 M/mm3 (4.20-5.40); Red Cell Distribution Width 13.2 % (11.5-17.5); White Blood Count 6.9 K/mm3 (4.8-10.8)
[2025-01-14 06:58] LABS: Anion Gap 6.2 mEq/L (5-15); Blood Urea Nitrogen 5 mg/dl (7-17); Calcium 8.5 mg/dl (8.4-10.2); Carbon Dioxide 27 mmol/L (22.0-30.0); Chloride 101 mmol/L (98-107); Creatinine Clearance Estimated 64 mL/min (50-200); Estimated Glomerular Filt Rate 63 ml/min (>60); GFR (African American) 76 ML/MIN (>60); Glucose 95 mg/dl (74-100); Potassium 3.2 mmoL/L (3.5-5.1); Sodium 131 mmol/L (136-145)
--- NOTE | 2025-01-14 07:48 | EXP.PN ---
Subjective *Date: 01/14/25 *Time: 08:46 Interval history: Patient slept until about 4 AM. She continues to complain with the back pain. Tylenol does help. She has had minimal abdominal pain and no nausea or vomiting. Right side of her neck is hurting. She feels it might be her right ear issue. And she describes diarrhea x 2 during the night. Stool studies were negative.. She has blood with wiping. She describes labial burning with voiding. Labs this morning are stable with a CBC showing hemoglobin of 11 hematocrit of 32.3. Blood chemistries with a sodium of 131 and potassium of again low at 3.2. BUN is 5 with a creatinine of 0.9. Exam Data for Last 24 hours Vital signs and Labs for Last 24 Hours: Temp Pulse Resp BP Pulse Ox O2 Del Method 97.7 F 76 16 145/78 H 96 Room Air 01/14/25 04:00 01/14/25 04:00 01/14/25 04:00 01/14/25 04:00 01/14/25 04:00 01/14/25 06:53 Laboratory Results - last 24 hr 01/13/25 06:45: WBC 4.8 D, RBC 3.39 L, Hgb 10.2 L D, Hct 30.3 L, MCV 89.4, MCH 30.4, MCHC 34.0, RDW 13.4, Plt Count 242, MPV 10.8 H, Neut % (Auto) 54.7, Lymph % (Auto) 37.4, [place] % (Auto) 6.5, Eos % (Auto) 0.6, Baso % (Auto) 0.6, Neut # (Auto) 2.6, Lymph # (Auto) 1.8, [place] # (Auto) 0.3, Eos # (Auto) 0.0, Baso # (Auto) 0.0, Sodium 131 L, Potassium 3.4 L D, Chloride 99, Carbon Dioxide 29, Anion Gap 6.4, BUN 7, Creatinine 1.10 H D, Estimated Creat Clear 59, Estimated GFR 50 L, Est GFR ( Amer) 60 D, Glucose 83 D, Calcium 8.4, Total Bilirubin 0.2, AST 17, ALT 9 L D, Alkaline Phosphatase 69, Total Protein 6.1 L, Albumin 3.4 L D, Globulin 2.7, Albumin/Globulin Ratio 1.3 01/13/25 13:20: Stl C. cayetanensis PCR Not detected, Stool Rotavirus (PCR) Not detected, Stl Adenov F 40/41 PCR Not detected, Stool Astrovirus (PCR) Not detected, Stool Campylobacter PCR Not detected, Stl C.difficile Tox PCR Not detected, Stool Cryptosporidium PCR Not detected, Stl E.coli Shiga Tox PCR Not detected, Stool E coli O157 PCR Not detected, Stl Enterotoxigenic E PCR Not detected, Stool EPEC (PCR) Not detected, Stool EAEC (PCR) Not detected, Stl E. histolytica PCR Not detected, Stool Giardia Lamblia PCR Not detected, Stool Salmonella PCR Not detected, Stool Sapovirus (PCR) Not detected, Stl P. shigelloides PCR Not detected, Stl Shigella/EIEC PCR Not detected, St Y.enterocolitica PCR Not detected, Stool Vibrio (PCR) Not detected, Stl Vibrio cholerae PCR Not detected, Stl Norovirus GI/GII PCR Not detected 01/14/25 05:55: WBC 6.9 D, RBC 3.68 L, Hgb 11.0 L, Hct 32.3 L, MCV 87.8, MCH 29.9, MCHC 34.1, RDW 13.2, Plt Count 259, MPV 10.5 H, Neut % (Auto) 54.5, Lymph % (Auto) 38.7, [place] % (Auto) 5.4, Eos % (Auto) 0.7, Baso % (Auto) 0.6, Neut # (Auto) 3.8, Lymph # (Auto) 2.7, [place] # (Auto) 0.4, Eos # (Auto) 0.1, Baso # (Auto) 0.0, Sodium 131 L, Potassium 3.2 L, Chloride 101, Carbon Dioxide 27, Anion Gap 6.2, BUN 5 L D, Creatinine 0.90, Estimated Creat Clear 64, Estimated GFR 63, Est GFR ( Amer) 76 D, Glucose 95, Calcium 8.5 I & O for Last 24 hours: Intake & Output 01/11/25 01/12/25 01/13/25 01/14/25 11:59 11:59 11:59 11:59 Intake Total 815 / 815 920 / 920 Output Total 0 / 0 0 / 0 Balance 815 / 815 920 / 920 Weight 166 lb 164 lb 161 lb 9.6 oz Constitutional Constitutional: no acute distress Comments: Lying on her right side and appears comfortable *Routine HEENT Exam ENT: Present external ear normal and TM's clear bilaterally *Routine Neck Exam Neck: Present supple and tenderness (Right side of neck with range of motion and to palpation); Absent lymphadenopathy *Routine Respiratory Exam Respiratory: Present CTA bilaterally (Anteriorly and posteriorly) *Routine Cardiovascular Exam Cardiovascular: Present RRR *Routine Abdominal Exam Abdominal: Present soft, normoactive bowel sounds and tenderness (Mildly tender in upper quads); Absent distended, rebound or guarding *Routine Rectal Exam Digital: Present hemorrhoid (Irritated hemorrhoids noted. No blood noted) *Routine Extremities Exam Extremities: Absent edema or calf tenderness *Routine Neurological Exam Neurological: Present alert and oriented X3 Assessment and Plan *Assessment and plan (1) Acute cholecystitis: Status: Acute Category: Medical Code(s): K81.0 - Acute cholecystitis (2) Cholelithiasis: Status: Acute Qualifiers: Biliary obstruction: without biliary obstruction Cholecystitis acuity: acute Cholecystitis presence: with cholecystitis Cholelithiasis location: gallbladder Qualified Code(s): K80.00 - Calculus of gallbladder with acute cholecystitis without obstruction Category: Medical Code(s): K80.20 - Calculus of gallbladder without cholecystitis without obstruction (3) Acute hypokalemia: Status: Acute Category: Medical Code(s): E87.6 - Hypokalemia (4) Acute hyponatremia: Status: Acute Category: Medical Code(s): E87.1 - Hypo-osmolality and hyponatremia (5) Back pain: Status: Chronic Qualifiers: Back pain laterality: bilateral Back pain location: low back pain Chronicity: chronic Sciatica presence: unspecified whether sciatica present Qualified Code(s): M54.50 - Low back pain, unspecified; G89.29 - Other chronic pain Category: Medical Code(s): M54.9 - Dorsalgia, unspecified (6) Vomiting and diarrhea: Status: Acute Category: Medical Code(s): R11.10 - Vomiting, unspecified; R19.7 - Diarrhea, unspecified (7) Hemorrhoids: Status: Acute Category: Medical Code(s): K64.9 - Unspecified hemorrhoids (8) Vulvovaginal candidiasis: Status: Acute Category: Medical Code(s): B37.31 - Acute candidiasis of vulva and vagina Plan Will need another round of potassium today. Will add ProctoCream for her hemorrhoids and nystatin cream for her vulvar irritation. Lap cholecystectomy is planned for later on this a.m. She remains NPO. Dr. Valentine - Saw patient, agree with above note.
[2025-01-14] MEDS: KCl 20mEq/100ml 100 ML 50 MEQ IV (08:31)
[2025-01-14] MEDS: HYDROCORTISONE 2.5% CREAM 28GM TUBE TP ×2 (08:33→21:26)
[2025-01-14] MEDS: NYSTATIN CREAM 30GM/TUBE TP ×4 (08:33→21:26)
[2025-01-14 08:58] LABS: Lymphocytes % 40 % (10-50); Monocytes % 2 % (2-9); Neutrophils % 58 % (42-76); Platelet Estimate Normal; RBC Morphology Normal; Total Cells Counted 100
--- NOTE | 2025-01-14 09:45 | P.PNANES_ITS ---
[facility] Disclaimer: The information contained in this section may have been updated after the patient was seen, as this information can be updated by other users. Medical History (Updated 01/14/25 @ 07:57 by Kimmy Carvalho APRN) Lumbar degenerative disc disease GERD (gastroesophageal reflux disease) Hypertension Hyperlipidemia Endocarditis Hypothyroid Surgical History (Updated 01/13/25 @ 08:46 by Kimmy Carvalho APRN) H/O: hysterectomy Family History (Updated 01/12/25 @ 16:29 by Mariana Frank, RN) Other Breast cancer Dementia Heart attack Hyperlipidemia Thyroid disorder Social History (Updated 01/12/25 @ 16:29 by Mariana Frank, AJ) Smoking Status: Never smoker alcohol intake: never substance use type: denies use current occupational status: employed Travel in the last 8 weeks?: None Have you lived/traveled outside [place] in past 30 days?: No Contact w/someone who lives/traveled outside US past 30 days?: No Exposure to someone with infectious disease in past 14 days?: No Do you have a fever (greater than 100.4 F or 38 C)?: No Have you tested positive for COVID-19?: No Exposed to someone with COVID-19 in past 14 days?: No Do you have a sore throat?: No Do you have a cough?: No Do you have any weakness?: No Do you have any diarrhea?: No Are you experiencing any unusual bleeding?: No Do you have any muscle aches/pain?: No Do you have any abdominal pain?: No Are you experiencing loss of taste or smell?: No [facility] Anesthesia Checklist Patient Identification Patient Identification: Arm Band and Verbal (Name & ) Structural Data Admitted From: Inpatient Planned Operative Procedure/s: Lap cholecystectomy Verified Documents: Surgical Consent NPO Status Verified Time NPO: 00:00 Chart Verification Results Verified: CBC, BMP and ECG Additional verifications Anesthesia Reactions: No Hx Blood Transfusions: No Blood Transfusion Reaction: No Airway Assessment Mallampati Score:: Class II C-Spine Mobility Assessed: Yes TMJ Mobility Assessed: Yes Dentition: Poor Dentition (Missing several teeth on top) Neurological Assessment Level of Consciousness: Awake, Alert and Appropriate Hx Seizures: No Numbness or tingling in extremities: No Anesthesia Plan Anesthesia Risk discussed: Yes Anesthesia Plan: Verified ASA Class: III Anesthesia Type: General
[2025-01-14] MEDS: SODIUM CHLORIDE IRRIG SOLUTION 3,000 ML 25 ML IR (10:33)
[2025-01-14] MEDS: LIDOCAINE 1% 20ML MDV 20 ML (10:33)
--- NOTE | 2025-01-14 12:18 | P.OP_ITS ---
Date of procedure: 01/14/25 Pre-op Diagnosis:: Acute cholecystitis Post-op Diagnosis:: Gangrenous acute calculus cholecystitis Purulent gallbladder hydrops Procedure performed:: Laparoscopic cholecystectomy Surgeon:: Phoenix Aaron MD [employer]ANGER:: Kevin Harris Anesthesia: GETA Estimated blood loss (mL): 50 Operative findings:: Severe inflammatory changes and soft tissue stranding/adhesions throughout right upper quadrant Dense adhesion/fusion of gallbladder to surrounding tissue including omentum, colon, small bowel, and stomach No obvious injury to surrounding structures noted during cholecystectomy Gangrenous acute cholecystitis Purulent gallbladder hydrops Operative note:: After informed consent was obtained, the patient was taken to the operating room and placed in the supine position. General anesthesia was induced and the abdomen was prepped and draped in a sterile fashion. After infiltration with local anesthetic an infraumbilical incision was made. A Veress needle was placed in position. The abdomen was insufflated. A 5 mm optical trocar was placed in position. Under direct visualization, a 12 mm trocar was placed in the subxiphoid position and 2 additional 5 mm trocars were placed in the right upper quadrant. Severe inflammatory changes and adhesions/fusion to right colon, small bowel, omentum, and stomach noted. A combination of blunt dissection and harmonic isidro was utilized to free the gallbladder from surrounding tissue. The gallbladder was tense and necrotic. An otomy was made along the dome of the gallbladder for decompression. Purulent hydrops confirmed. The gallbladder was elevated up and over the liver margin. The tissue around the cystic duct was carefully dissected. A clip was placed proximally. The decision was made to free the gallbladder from the liver margin in place Endoloops. Harmonic isidro were utilized to dissect the gallbladder away from the liver margin. Endoloops (x 2) were placed at the infundibulum (1 above and 1 below prior clip placement). The gallbladder was then transected above the Endoloops and placed in a retrieval bag prior to removing through the subxiphoid trocar site. The right upper quadrant was thoroughly irrigated. No active bleeding or bile leak was noted. Fascia at the subxiphoid trocar site was reapproximated utilizing 0 Ethibond. The remaining trocars were removed. All wounds were irrigated and skin was closed with 4-0 Monocryl in an interrupted mattress fashion to facilitate hemostasis. Dressings were applied. The patient's anesthetic agents were reversed and extubation was completed prior to transfer to recovery in stable condition. Condition: stable Disposition: PACU Specimens:: Gallbladder and contents Complications:: No immediate
[2025-01-14] MEDS: ONDANSETRON 4MG/2ML VIAL 4 MG IV (12:28)
--- NOTE | 2025-01-14 12:28 | P.PNANES_ITS ---
[facility] Anesthesia Record Part I Anesthesia Record I Intake, IV Amount: 1,300 Hydration: Adequate Estimated blood loss (mL): 10 Urine output (mL): 0 Blood Products used (#): none Blood Pressure: 165/100 SaO2: 95 Pulse Rate: 90 Airway Patency: Patent Respiratory Rate: 16 Temperature: 97.8 F Patient is:: Drowsy and Stable Stable to PACU at:: 12:25
[2025-01-14] MEDS: MORPHINE 2MG/ML SYRINGE 2 MG IV ×3 (12:35→19:35)
--- NOTE | 2025-01-14 13:38 | P.PNANES_ITS ---
[facility] Anesthesia Record Part II Anesthesia Record Part II Discharge Time: 12:55 Destination: Medical Surgical Department PACU nurse assessment reviewed?: Yes Patient Condition:: Good Anesthesia Complications:: None Swallowing reflex intact?: Yes Airway Patency: Patent Cyanosis?: No Blood Pressure: 138/77 SaO2: 94 Respiratory Rate: 16 Pulse Rate: 77 Temperature: 98.5 F Mental Status: Alert & Oriented Pain level:: 5 Nausea and/or vomitting:: None Intake, IV Amount: 0 Hydration: Adequate
--- NOTE | 2025-01-14 17:27 | PC.NURSE ---
Patient resting after surgery, laparoscopic sites intact. VS stable and patient remained on room air. Patient resting with no signs of pain. Lung sounds clear
[2025-01-15] VITALS: BP 150/82; PULSE 94; RESP 16; TEMP 37.4; O2SAT 97
[2025-01-15] MEDS: MORPHINE 2MG/ML SYRINGE 2 MG IV (02:38)
[2025-01-15 04:00] VITALS: BP 115/58; PULSE 92; RESP 18; TEMP 37.1; O2SAT 94; BMI 29.9
[2025-01-15] MEDS: METRONIDAZ/SOD CHL 500 MG/100 ML PIGGYBACK 100 MG IV ×2 (05:41→12:20)
--- NOTE | 2025-01-15 05:55 | PC.NURSE ---
Pt A&OX4 and has tolerated room air. Dressing over lap sites have remained c/d/i. She has complained of abdominal pain and back pain twice and was medicated per MAR. She has ambulated with x1 assist. No complaints at this time, call light within reach.
[2025-01-15 06:52] LABS: Basophils % 0.1 % (0.1-2.0); Hematocrit 29.4 % (37.0-47.0); Immature Granulocytes # 0.03 10^3uL; Immature Granulocytes % 0.3 %; Lymphocytes % 20.4 % (10-50); Mean Corpuscular Hemoglobin 29.9 pg (27.0-31.2); Mean Platelet Volume 10.5 fl (7.4-10.4); Monocytes # 0.5 K/mm3 (0.1-1.0); Monocytes % 4.8 % (1.7-9.3); Neutrophils # 7.2 K/mm3 (1.8-7.8); Neutrophils % 74.4 % (37.0-80.0); Nucleated Red Blood Cells # 0 10^3/uL; Nucleated Red Blood Cells % 0 %; Platelet Count 257 K/mm3 (142-424); Red Blood Count 3.34 M/mm3 (4.20-5.40); Red Cell Distribution Width 13.7 % (11.5-17.5); Red Cell Distribution Width-SD 44.6 fL; White Blood Count 9.7 K/mm3 (4.8-10.8)
[2025-01-15 06:58] LABS: Alanine Aminotransferase 24 U/L (12-78); Albumin Level 3.5 g/dl (3.5-5.0); Albumin/Globulin Ratio 1.3 (1.1-1.8); Alkaline Phosphatase 62 U/L (38-126); Anion Gap 7.6 mEq/L (5-15); Aspartate Amino Transferase 55 U/L (14-36); Bilirubin,Total 0.3 mg/dl (0.2-1.3); Blood Urea Nitrogen 7 mg/dl (7-17); Calcium 8.2 mg/dl (8.4-10.2); Carbon Dioxide 24 mmol/L (22.0-30.0); Chloride 103 mmol/L (98-107); Creatinine Clearance Estimated 67 mL/min (50-200); Estimated Glomerular Filt Rate 55 ml/min (>60); GFR (African American) 67 ML/MIN (>60); Globulin 2.6 g/dL (1.3-3.2); Glucose 104 mg/dl (74-100); Potassium 3.6 mmoL/L (3.5-5.1); Sodium 131 mmol/L (136-145); Total Protein,Serum 6.1 g/dl (6.3-8.2)
--- NOTE | 2025-01-15 07:59 | P.PN_ITS ---
Subjective Patient reports: no new complaints Exam Data for Last 24 hours Vital signs and Labs for Last 24 Hours: Temp Pulse Resp BP Pulse Ox O2 Del Method 98.7 F 92 H 18 115/58 L 94 L Room Air 01/15/25 04:00 01/15/25 04:00 01/15/25 04:00 01/15/25 04:00 01/15/25 04:00 01/15/25 06:54 Laboratory Results - last 24 hr 01/14/25 05:55: Total Counted 100, Neutrophils % (Manual) 58, Lymphocytes % (Manual) 40, Monocytes % (Manual) 2, Platelet Estimate Normal, RBC Morphology Normal 01/15/25 06:18: WBC 9.7 D, RBC 3.34 L, Hgb 10.0 L, Hct 29.4 L, MCV 88.0, MCH 29.9, MCHC 34.0, RDW 13.7, Plt Count 257, MPV 10.5 H, Neut % (Auto) 74.4, Lymph % (Auto) 20.4, [place] % (Auto) 4.8, Eos % (Auto) 0.0 L, Baso % (Auto) 0.1, Neut # (Auto) 7.2, Lymph # (Auto) 2.0, [place] # (Auto) 0.5, Eos # (Auto) 0.0, Baso # (Auto) 0.0, Sodium 131 L, Potassium 3.6, Chloride 103, Carbon Dioxide 24, Anion Gap 7.6, BUN 7 D, Creatinine 1.00, Estimated Creat Clear 67, Estimated GFR 55 L , Est GFR ( Amer) 67, Glucose 104 H, Calcium 8.2 L, Total Bilirubin 0.3, AST 55 H D, ALT 24 D, Alkaline Phosphatase 62, Total Protein 6.1 L, Albumin 3.5, Globulin 2.6, Albumin/Globulin Ratio 1.3 I & O for Last 24 hours: Intake & Output 01/12/25 01/13/25 01/14/25 01/15/25 11:59 11:59 11:59 11:59 Intake Total 815 / 815 920 / 920 1500 / 1500 Output Total 0 / 0 0 / 0 0 / 0 Balance 815 / 815 920 / 920 1500 / 1500 Weight 166 lb 164 lb 161 lb 9.6 oz 169 lb 3 oz Microbiology Reports for the Last 24 Hours: Microbiology 01/12/25 12:29 Urine,Clean Catch Urine Culture - Final No growth. Constitutional Constitutional: no acute distress *Routine Respiratory Exam Respiratory: Absent respiratory distress *Routine Abdominal Exam Abdominal: Present soft Comments: Dressings in place Progress Note: A&P Assessment and plan (1) Acute suppurative cholecystitis: Status: Acute Assessment and plan: Overall, doing fairly well status post laparoscopic cholecystectomy. Overall management as per primary service Complete course of antibiotics secondary to suppurative/purulent cholecystitis (Levaquin and Flagyl prescriptions sent to patient's pharmacy)
[2025-01-15 08:00] VITALS: BP 156/87; PULSE 96; RESP 16; TEMP 36.4; O2SAT 92
--- NOTE | 2025-01-15 08:26 | P.PN_ITS ---
Subjective *Date: 01/15/25 *Time: 08:46 Interval history: Patient is feeling a little better today. She is having a lot of pain at the surgery site. She says she cannot get up and walk without assistance. She is able to tolerate clear liquids. Medical Exam Vital signs and Labs for Last 24 Hours: Vital Signs Temp Pulse Pulse Resp BP BP Pulse Ox 01/15/25 06:54 01/15/25 05:00 01/15/25 04:00 98.7 F 92 H 18 115/58 L 94 L 01/15/25 02:58 01/15/25 01:00 01/15/25 00:00 99.3 F 94 H 16 150/82 H 97 01/14/25 23:00 01/14/25 21:00 01/14/25 20:00 01/14/25 19:48 98.4 F 105 H 18 114/78 95 01/14/25 18:55 01/14/25 17:00 01/14/25 15:25 97.5 F L 81 16 150/79 H 95 01/14/25 15:00 01/14/25 14:25 97.5 F L 77 16 142/78 H 97 01/14/25 13:55 97.6 F 78 16 134/77 95 01/14/25 13:40 97.4 F L 76 16 135/76 94 L 01/14/25 13:39 16 01/14/25 13:25 97.4 F L 73 16 132/70 94 L 01/14/25 13:10 97.2 F L 73 16 125/70 94 L 01/14/25 13:00 01/14/25 12:55 96.6 F L 77 16 135/68 95 01/14/25 12:55 98.5 F 77 16 138/77 94 L 01/14/25 12:45 98.5 F 81 16 157/90 H 97 01/14/25 12:35 98.5 F 89 16 159/94 H 93 L 01/14/25 12:30 97.8 F 90 16 165/100 H 01/14/25 12:25 98.5 F 91 H 16 165/100 H 94 L 01/14/25 09:34 97.9 F 72 16 142/73 H 99 01/14/25 09:00 O2 Del Method 01/15/25 06:54 Room Air 01/15/25 05:00 Room Air 01/15/25 04:00 Room Air 01/15/25 02:58 Room Air 01/15/25 01:00 Room Air 01/15/25 00:00 Room Air 01/14/25 23:00 Room Air 01/14/25 21:00 Room Air 01/14/25 20:00 Room Air 01/14/25 19:48 Room Air 01/14/25 18:55 Room Air 01/14/25 17:00 Room Air 01/14/25 15:25 Room Air 01/14/25 15:00 Room Air 01/14/25 14:25 Room Air 01/14/25 13:55 Room Air 01/14/25 13:40 Room Air 01/14/25 13:39 01/14/25 13:25 Room Air 01/14/25 13:10 Room Air 01/14/25 13:00 Room Air 01/14/25 12:55 Room Air 01/14/25 12:55 Room Air 01/14/25 12:45 Room Air 01/14/25 12:35 Room Air 01/14/25 12:30 01/14/25 12:25 Room Air 01/14/25 09:34 Room Air 01/14/25 09:00 Room Air Intake and Output 01/14/25 01/15/25 01/15/25 19:59 03:59 11:59 Intake Total 1400 / 1500 100 / 1500 Output Total 0 / 0 Balance 1400 / 1500 100 / 1500 Intake: Intake, Total IV Amount 1400 / 1500 100 / 1500 Metronidaz/Sod Chl 500 mg In 100 / 200 100 / 200 100 ml @ 100 mls/hr IV Q[facility] Rx#:[id number] Output: Output, Urine Amount 0 / 0 Other: Number of Bowel Movements 1 Weight 169 lb 3 oz Patient Weight 01/15/25 11:59 Weight 169 lb 3 oz Laboratory Results - last 24 hr 01/14/25 05:55: Total Counted 100, Neutrophils % (Manual) 58, Lymphocytes % (Manual) 40, Monocytes % (Manual) 2, Platelet Estimate Normal, RBC Morphology Normal 01/15/25 06:18: WBC 9.7 D, RBC 3.34 L, Hgb 10.0 L, Hct 29.4 L, MCV 88.0, MCH 29.9, MCHC 34.0, RDW 13.7, Plt Count 257, MPV 10.5 H, Neut % (Auto) 74.4, Lymph % (Auto) 20.4, [place] % (Auto) 4.8, Eos % (Auto) 0.0 L, Baso % (Auto) 0.1, Neut # (Auto) 7.2, Lymph # (Auto) 2.0, [place] # (Auto) 0.5, Eos # (Auto) 0.0, Baso # (Auto) 0.0, Sodium 131 L, Potassium 3.6, Chloride 103, Carbon Dioxide 24, Anion Gap 7.6, BUN 7 D, Creatinine 1.00, Estimated Creat Clear 67, Estimated GFR 55 L , Est GFR ( Amer) 67, Glucose 104 H, Calcium 8.2 L, Total Bilirubin 0.3, AST 55 H D, ALT 24 D, Alkaline Phosphatase 62, Total Protein 6.1 L, Albumin 3.5, Globulin 2.6, Albumin/Globulin Ratio 1.3 I & O for Labs for Last 24 Hours: Intake & Output 01/12/25 01/13/25 01/14/25 01/15/25 11:59 11:59 11:59 11:59 Intake Total 815 / 815 920 / 920 1500 / 1500 Output Total 0 / 0 0 / 0 0 / 0 Balance 815 / 815 920 / 920 1500 / 1500 Weight 166 lb 164 lb 161 lb 9.6 oz 169 lb 3 oz Microbiology Reports for the Last 24 Hours: Microbiology 01/12/25 12:29 Urine,Clean Catch Urine Culture - Final No growth. Constitutional: Present no acute distress Respiratory: Present CTA bilaterally Cardiac: Present Reg Rate and Rhythm GI: Present soft and tenderness (around surgical sites) Extremities: Absent edema Skin: Present intact Neuro: Present alert, awake and oriented x 3 Assessment and Plan *Assessment and plan (1) Acute hypokalemia: Status: Acute Category: Medical Code(s): E87.6 - Hypokalemia (2) Acute hyponatremia: Status: Acute Category: Medical Code(s): E87.1 - Hypo-osmolality and hyponatremia (3) Back pain: Status: Chronic Qualifiers: Back pain laterality: bilateral Back pain location: low back pain Chronicity: chronic Sciatica presence: unspecified whether sciatica present Qualified Code(s): M54.50 - Low back pain, unspecified; G89.29 - Other chronic pain Category: Medical Code(s): M54.9 - Dorsalgia, unspecified (4) Hemorrhoids: Status: Acute Category: Medical Code(s): K64.9 - Unspecified hemorrhoids (5) Vulvovaginal candidiasis: Status: Acute Category: Medical Code(s): B37.31 - Acute candidiasis of vulva and vagina (6) Acute suppurative cholecystitis: Status: Acute Category: Medical Code(s): K81.0 - Acute cholecystitis Plan Patient doing well after cholecystectomy. She will need to complete a course of antibiotics. Will discuss disposition with Dr. Valentine. Dr. Valentine- Saw patient, plan to get her up to a chair today, advance diet and likely discharge home later today.
[2025-01-15] MEDS: levoFLOXacin 500MG TAB 500 MG PO (08:49)
[2025-01-15] MEDS: HYDROCORTISONE 2.5% CREAM 28GM TUBE TP (08:49)
[2025-01-15] MEDS: NYSTATIN CREAM 30GM/TUBE TP (08:49)
[2025-01-15] MEDS: LEVOTHYROXINE 50MCG (0.05MG) TAB 50 MCG PO (08:54)
[2025-01-15] MEDS: METOPROLOL TARTRATE 25MG TABLET 25 MG PO (08:54)
[2025-01-15] MEDS: POTASSIUM CHLORIDE 20MEQ TAB 20 MEQ PO (08:54)
--- NOTE | 2025-01-15 10:12 | EXP.PHA.PN ---
Subjective *Date: 01/15/25 *Time: 10:12 Medical Exam Vital signs and Labs for Last 24 Hours: Vital Signs Temp Pulse Pulse Resp BP BP Pulse Ox 01/15/25 09:00 01/15/25 08:00 01/15/25 08:00 97.6 F 96 H 16 156/87 H 92 L 01/15/25 06:54 01/15/25 05:00 01/15/25 04:00 98.7 F 92 H 18 115/58 L 94 L 01/15/25 02:58 01/15/25 01:00 01/15/25 00:00 99.3 F 94 H 16 150/82 H 97 01/14/25 23:00 01/14/25 21:00 01/14/25 20:00 01/14/25 19:48 98.4 F 105 H 18 114/78 95 01/14/25 18:55 01/14/25 17:00 01/14/25 15:25 97.5 F L 81 16 150/79 H 95 01/14/25 15:00 01/14/25 14:25 97.5 F L 77 16 142/78 H 97 01/14/25 13:55 97.6 F 78 16 134/77 95 01/14/25 13:40 97.4 F L 76 16 135/76 94 L 01/14/25 13:39 16 01/14/25 13:25 97.4 F L 73 16 132/70 94 L 01/14/25 13:10 97.2 F L 73 16 125/70 94 L 01/14/25 13:00 01/14/25 12:55 96.6 F L 77 16 135/68 95 01/14/25 12:55 98.5 F 77 16 138/77 94 L 01/14/25 12:45 98.5 F 81 16 157/90 H 97 01/14/25 12:35 98.5 F 89 16 159/94 H 93 L 01/14/25 12:30 97.8 F 90 16 165/100 H 01/14/25 12:25 98.5 F 91 H 16 165/100 H 94 L O2 Del Method 01/15/25 09:00 Room Air 01/15/25 08:00 Room Air 01/15/25 08:00 Room Air 01/15/25 06:54 Room Air 01/15/25 05:00 Room Air 01/15/25 04:00 Room Air 01/15/25 02:58 Room Air 01/15/25 01:00 Room Air 01/15/25 00:00 Room Air 01/14/25 23:00 Room Air 01/14/25 21:00 Room Air 01/14/25 20:00 Room Air 01/14/25 19:48 Room Air 01/14/25 18:55 Room Air 01/14/25 17:00 Room Air 01/14/25 15:25 Room Air 01/14/25 15:00 Room Air 01/14/25 14:25 Room Air 01/14/25 13:55 Room Air 01/14/25 13:40 Room Air 01/14/25 13:39 01/14/25 13:25 Room Air 01/14/25 13:10 Room Air 01/14/25 13:00 Room Air 01/14/25 12:55 Room Air 01/14/25 12:55 Room Air 01/14/25 12:45 Room Air 01/14/25 12:35 Room Air 01/14/25 12:30 01/14/25 12:25 Room Air Intake and Output 01/14/25 01/15/25 01/15/25 23:59 07:59 15:59 Intake Total 200 / 1850 510 / 510 Output Total 0 / 0 0 / 0 Balance 200 / 1850 510 / 510 Intake: Intake, Oral Amount 510 / 510 Intake, Total IV Amount 200 / 300 Metronidaz/Sod Chl 500 mg In 200 / 300 100 ml @ 100 mls/hr IV Q8H [facility] Rx#:[id number] Output: Output, Urine Amount 0 / 0 0 / 0 Other: Number of Unmeasured Voids 1 Number of Bowel Movements 1 Weight 76.742 kg Patient Weight 01/15/25 23:59 Weight 76.742 kg Laboratory Results - last 24 hr 01/15/25 06:18: WBC 9.7 D, RBC 3.34 L, Hgb 10.0 L, Hct 29.4 L, MCV 88.0, MCH 29.9, MCHC 34.0, RDW 13.7, Plt Count 257, MPV 10.5 H, Neut % (Auto) 74.4, Lymph % (Auto) 20.4, [place] % (Auto) 4.8, Eos % (Auto) 0.0 L, Baso % (Auto) 0.1, Neut # (Auto) 7.2, Lymph # (Auto) 2.0, [place] # (Auto) 0.5, Eos # (Auto) 0.0, Baso # (Auto) 0.0, Sodium 131 L, Potassium 3.6, Chloride 103, Carbon Dioxide 24, Anion Gap 7.6, BUN 7 D, Creatinine 1.00, Estimated Creat Clear 67, Estimated GFR 55 L, Est GFR ( Amer) 67, Glucose 104 H, Calcium 8.2 L, Total Bilirubin 0.3, AST 55 H D, ALT 24 D, Alkaline Phosphatase 62, Total Protein 6.1 L, Albumin 3.5, Globulin 2.6, Albumin/Globulin Ratio 1.3 I & O for Labs for Last 24 Hours: Intake & Output 01/12/25 01/13/25 01/14/25 01/15/25 23:59 23:59 23:59 23:59 Intake Total 815 / 815 570 / 920 1850 / 1850 510 / 510 Output Total 0 / 0 0 / 0 0 / 0 0 / 0 Balance 815 / 815 570 / 920 1850 / 1850 510 / 510 Weight 75.296 kg 74.389 kg 73.301 kg 76.742 kg Microbiology Reports for the Last 24 Hours: Microbiology 01/12/25 12:29 Urine,Clean Catch Urine Culture - Final No growth. The patient's infection will respond to the chosen ABx?: Yes (CHOLECYSTITIS, URINE CX NO GROWTH, AFEBRILE OVER 24 HR.) Is the patient receiving the right drug, dose, and route?: Yes Could a more targeted ABx be ordered?: No
--- NOTE | 2025-01-15 10:42 | PC.NURSE ---
PATIENT HAS AMBULATED WITH STANDBY ASSISTANCE TO BATHROOM, OUT OF HER ROOM TO THE END OF THE HALLWAY AND BACK (50FT). PATIENT TOLERATED VERY WELL. ENCOURAGED PT TO TAKE WIDER STEPS AND TRY NOT TO SHUFFLE MUCH. SHE STATES SHE IS JUST NERVOUS WALKING AND IN SOME PAIN, BUT TOLERABLE. PT NOW SITTING UP IN CHAIR WATCHING TV.
[2025-01-15 12:00] VITALS: BP 153/75; PULSE 96; RESP 17; TEMP 36.9; O2SAT 94
[2025-01-15] MEDS: ACETAMINOPHEN 325MG TAB 650 MG PO (14:47)
--- NOTE | 2025-01-16 16:24 | P.DS_ITS ---
General Admission date:: 01/12/25 Discharge date: 01/15/25 HPI HPI HPI: Ms. Brooke Lay is a 64-year-old female well-known to [facility] with a history of hypertension, mitral valve prolapse, bicuspid aortic valve, hypothyroidism, GERD, degenerative disc disease of the lumbar spine who presented to [facility] emergency room after experiencing several days of nausea, vomiting, and diarrhea. She describes some abdominal pain and no fever. She has been voiding QS although she has chronic bladder issues with hesitancy, dysuria, and frequency. She was seen in the office of [facility] on 01/09/2025 and started on Levaquin for leukocytosis, her abdominal pain and empirically for urinary tract infection. Her urine culture did come back negative. She notes that she has been having diarrhea for over a week prior to the start of the antibiotic. She has been going 3 or 4 times a day and recently 2 or 3 times a day and describes it as green and yellow stool. She has been out unable to retain any food and has been mostly on clear liquids for the past 4 to 5 days. She does have chronic low back pain which has worsened. She was seen for this in the office as well and was started on a Medrol Dosepak which did help. Her NSAIDs were discontinued due to a slight worsening of her renal function. With labs last week in the office her BMP revealed a BUN of 9 and a creatinine of 0.95. All liver function studies were normal. She did have a low sodium of 129. CBC at that time showed a white count elevated at 12,700 with a hemoglobin of 12.7 hematocrit of 38.6. With evaluation in the emergency room she was found to be afebrile with tachycardia with a high heart rate of 129. Hemoglobin at that time was 12.3 with hematocrit of 35.6 and white blood cell count of 8900. BUN was 9 and creatinine was 1.4 ; potassium was low at 2.7 and sodium was 123. She was given a dose of Flagyl and IV potassium and a liter of lactated Ringer's. She had morphine sulfate for pain 4 mg and [address]an IV. CT of the abdomen/pelvis showed distended gallbladder with wall thickening and adjacent inflammatory changes compatible with acute cholecystitis. She has been seen by Dr. Elliott this morning who ordered right upper quadrant ultrasound. He did discuss cholecystectomy with her. This a.m. patient has been able to sleep during the night. She describes belching and passing gas. She has had 2 liquid stools since admission. She has had some nausea after clear liquids last evening but no vomiting. Her biggest complaint this morning is her lower back pain.White blood cell count this a.m. is 4800 with a hemoglobin of 10.2 hematocrit of 30.3. Sodium is improved to 131 with a potassium of 3.4 BUN is 7 and creatinine is 1.10. Lipase is noted to be normal at 75. Repeat urine cultures pending. . Hospital Course Hospital Course Hospital Course: The patient was admitted and was given additional IV potassium. She was seen in consultation by Dr. Aaron who discussed cholecystectomy with her. A right upper quadrant ultrasound was ordered. She did begin having diarrhea but stool studies were negative. She had to be given more potassium and was also given ProctoCream for hemorrhoids and nystatin cream for vulvar irritation. Her ultrasound showed a distended gallbladder with gallstones and mild gallbladder wall thickening consistent with cholecystitis. She was taken to the OR by Dr. Aaron on 01/14/2025 and had a laparoscopic cholecystectomy. By 01/15/2025 she was still having some pain but was feeling better. She was able to tolerate her diet and Dr. Aaron wanted her to complete a course of antibiotics secondary to suppurative/purulent cholecystitis. He wanted her to have Levaquin and Flagyl and sent these prescriptions to the pharmacy. The patient was stable to be discharged on 01/15/2025 with follow-up with Dr. Aaron. Exam Data for Last 24 hours Vital signs and Labs for Last 24 Hours: Temp Pulse Resp BP Pulse Ox O2 Del Method 98.5 F 96 H 17 153/75 H 94 L Room Air 01/15/25 12:00 01/15/25 12:00 01/15/25 12:00 01/15/25 12:00 01/15/25 12:00 01/15/25 15:00 I & O for Last 24 hours: Intake & Output 01/14/25 01/15/25 01/16/25 01/17/25 11:59 11:59 11:59 11:59 Intake Total 2009 Output Total 0 / 0 0 / 0 0 / 0 Balance 2009 0 / 0 Weight 161 lb 9.6 oz 169 lb 3 oz Narrative: Constitutional Constitutional: no acute distress *Routine HEENT Exam Head: Present normocephalic and atraumatic Eye: Present PERRL; Absent conjunctival icterus, scleral injection or conjunctivae pink ENT: Present mucous membranes moist *Routine Neck Exam Neck: Present supple; Absent carotid bruit, lymphadenopathy or thyromegaly *Routine Respiratory Exam Respiratory: Present CTA bilaterally (Anteriorly and posteriorly) *Routine Cardiovascular Exam Cardiovascular: Present RRR (Monitor showing sinus rhythm in the 70s) *Routine Abdominal Exam Abdominal: Present soft, normoactive bowel sounds and tenderness (Right upper quadrant); Absent distended or guarding *Routine Rectal Exam Rectal:: deferred *Routine Genitalia Exam Genitalia:: deferred *Routine Extremities Exam Extremities: Present pulses intact; Absent edema or calf tenderness Routine Back/Spine/Pelvis Exam Back/Spine: Present paraspinal tenderness *Routine Neurological Exam Neurological: Present alert and oriented X3 DS: Diagnosis Discharge Diagnosis (1) Acute hypokalemia: Status: Acute Code(s): E87.6 - Hypokalemia (2) Acute hyponatremia: Status: Acute Code(s): E87.1 - Hypo-osmolality and hyponatremia (3) Back pain: Status: Chronic Code(s): M54.9 - Dorsalgia, unspecified Qualifiers: Back pain laterality: bilateral Back pain location: low back pain Chronicity: chronic Sciatica presence: unspecified whether sciatica present Qualified Code(s): M54.50 - Low back pain, unspecified; G89.29 - Other chronic pain (4) Hemorrhoids: Status: Acute Code(s): K64.9 - Unspecified hemorrhoids (5) Vulvovaginal candidiasis: Status: Acute Code(s): B37.31 - Acute candidiasis of vulva and vagina (6) Acute suppurative cholecystitis: Status: Acute Code(s): K81.0 - Acute cholecystitis Meds Home Medications and Allergies Home Medications ?Medication ?Instructions ?Recorded ?Confirmed ?Type amlodipine 5 mg tablet 5 mg PO HS 02/07/24 01/12/25 History estradiol 0.5 mg tablet 0.5 mg PO DAILY 02/07/24 01/12/25 History fluticasone propionate 50 1 spray intranasal BID 02/07/24 01/12/25 History mcg/actuation nasal spray,suspension levothyroxine 50 mcg tablet 50 mcg PO DAILY 02/07/24 01/12/25 History lisinopril 20 1 tab PO DAILY 02/07/24 01/12/25 History mg-hydrochlorothiazide 12.5 mg tablet loratadine 10 mg tablet 10 mg PO DAILY 02/07/24 01/12/25 History metoprolol tartrate 100 mg tablet 100 mg PO BID 02/07/24 01/12/25 History naproxen 500 mg tablet 500 mg PO BID 02/07/24 01/12/25 History rosuvastatin 20 mg tablet 20 mg PO HS 02/07/24 01/12/25 History levofloxacin 500 mg tablet 500 mg PO DAILY 01/12/25 01/12/25 History omeprazole 20 mg capsule,delayed 20 mg PO DAILY 01/12/25 01/12/25 History release ondansetron 4 mg disintegrating 4 mg PO TIDP PRN nausea and 01/12/25 01/12/25 History tablet vomiting hydrocodone 5 mg-acetaminophen 325 1 tab PO Q6H PRN pain #17 tabs 01/15/25 Rx mg tablet hydrocodone 5 mg-acetaminophen 325 1 tab PO Q6H PRN post-op pain #17 01/15/25 Rx mg tablet tabs levofloxacin 500 mg tablet 500 mg PO DAILY #10 tabs 01/15/25 Rx metronidazole 500 mg tablet 500 mg PO Q8H #30 tabs 01/15/25 Rx potassium chloride 20 mEq 20 meq PO DAILY #30 tabs 01/15/25 Rx tablet,extended release(part/cryst) (Klor-Con M) New Prescriptions to Start Prescriptions: hydrocodone-acetaminophen Phoenix Aaron hydrocodone-acetaminophen Noman Valentine levofloxacin Phoenix Aaron metronidazole Phoenix Aaron potassium chloride [Klor-Con M20] SergeNoman Allergies Allergy/AdvReac Type Severity Reaction Status Date / Time metoclopramide (From Reglan) Allergy Severe S-BLISTERS Verified 01/22/18 14:25 IN MOUTH Penicillins Allergy Severe S-BLISTERS Verified 01/22/18 14:25 IN MOUTH Sulfa (Sulfonamide Allergy Severe S-BLISTERS Verified 01/22/18 14:25 Antibiotics) IN MOUTH Discharge Plan Disposition Patient Disposition: Home, Self-Care Condition: Good Follow up Plan Follow up with: Gwen Mendieta PA [Physician Event Operations Manager] - 01/29/25 10:20 am Phoenix Aaron MD [Staff Physician] - 01/22/25 1:45 pm Prescriptions/Medication Reconciliation: New levofloxacin 500 mg tablet 500 mg PO DAILY Qty: 10 0RF metronidazole 500 mg tablet 500 mg PO Q8H Qty: 30 0RF hydrocodone-acetaminophen 5-325 mg tablet 1 tab PO Q6H PRN (Reason: post-op pain) Qty: 17 0RF potassium chloride [Klor-Con M20] 20 mEq Tablet,Er Particles/Crystals 20 meq PO DAILY Qty: 30 0RF hydrocodone-acetaminophen 5-325 mg tablet 1 tab PO Q6H PRN (Reason: pain) Qty: 17 0RF Continued omeprazole 20 mg capsule,delayed release(DR/EC) 20 mg PO DAILY Patient Comments: TAKE 1 CAPSULE BY MOUTH DAILY levofloxacin 500 mg tablet 500 mg PO DAILY Patient Comments: TAKE 1 TABLET BY MOUTH DAILY FOR 10 DAYS ondansetron 4 mg tablet,disintegrating 4 mg PO TIDP PRN (Reason: nausea and vomiting) lisinopril-hydrochlorothiazide 20-12.5 mg tablet 1 tab PO DAILY Patient Comments: TAKE 1 TABLET BY MOUTH EVERY DAY metoprolol tartrate 100 mg tablet 100 mg PO BID Patient Comments: TAKE 1 TABLET BY MOUTH TWICE DAILY amlodipine 5 mg tablet 5 mg PO HS Patient Comments: TAKE 1 TABLET BY MOUTH AT BEDTIME levothyroxine 50 mcg tablet 50 mcg PO DAILY Patient Comments: TAKE 1 TABLET BY MOUTH EVERY DAY estradiol 0.5 mg tablet 0.5 mg PO DAILY Patient Comments: TAKE 1 TABLET BY MOUTH EVERY DAY fluticasone propionate 50 mcg/actuation spray,suspension 1 spray INTRANASAL BID Patient Comments: INHALE 1 SPRAY INTO EACH NOSTRIL TWICE A DAY loratadine 10 mg tablet 10 mg PO DAILY Patient Comments: TAKE 1 TABLET BY MOUTH DAILY naproxen 500 mg tablet 500 mg PO BID Patient Comments: TAKE 1 TABLET BY MOUTH TWICE DAILY rosuvastatin 20 mg tablet 20 mg PO HS Patient Comments: TAKE 1 TABLET BY MOUTH EVERY DAY Discontinued hyoscyamine sulfate 0.125 mg tablet,disintegrating 0.125 mg sublingual Q4HP PRN (Reason: Abdominal Discomfort) Patient Comments: DISSOLVE 1 TABLET ON THE TONGUE EVERY 4 HOURS NEEDED Problem Reconciliation Problems Reviewed?: Yes Patient Discharge Instructions ACTIVITY: Ambulate as tolerated, Limited activity and No heavy lifting DIET: advance to your usual diet Patient Instructions: DI for Hypokalemia, DI for Hyponatremia, DI for Surgical Site Infection, DI for Cholecystitis, DI for Laparoscopic Cholecystectomy Print Language: [place] Providers Primary Care Provider: Juancho Chavez Admit Provider: Yovany Gary Attending Provider: Noman Valentine
--- NOTE | 2025-01-17 10:59 | SW/DCPLANNER ---
Spoke with patient on the phone. Patient stated that she isnt doing too good. Patient stated that she is weak from the surgery. Patient stated that she was able to get her new medicine picked up from [facility]. Patient stated that she has no cocnerns or questions at this time. Wilberto Murrieta
== END 2025-01-15 16:45 | disposition home or self-care (01) ==
LOC: ER 11:57 → 2ND 14:04
PROVIDERS: Nurse Practitioner Family; Surgery; Admitting Provider Internal Medicine Adolescent Medicine; Emergency Provider Student in an Organized Health Care Education/Training Program; PCP Family Medicine; Visit Provider Family Medicine
PROC: 0FT44ZZ Resection of Gallbladder, Percutaneous Endoscopic Approach (ICD-10-PCS; CPT 47562; principal; 2025-01-14 09:45)
DX: K80.00 Calculus of gallbladder with acute cholecystitis without obstruction (principal); K82.A1 Gangrene of gallbladder in cholecystitis; K82.1 Hydrops of gallbladder; E87.6 Hypokalemia; E87.1 Hypo-osmolality and hyponatremia; M54.50 Low back pain, unspecified; G89.29 Other chronic pain; R11.10 Vomiting, unspecified; R19.7 Diarrhea, unspecified; K64.9 Unspecified hemorrhoids; B37.31 Acute candidiasis of vulva and vagina; Z88.0 Allergy status to penicillin; Z88.2 Allergy status to sulfonamides; Z88.1 Allergy status to other antibiotic agents; Z79.899 Other long term (current) drug therapy
CPT/HCPCS: 47562; 36415; 74177; 76705; 80048; 80053; 81001; 83605; 83690; 84484; 85007; 85014; 85018; 85025; 85048; 85049; 86803; 87086; 87389; 87506; 93005; 99285; J3490; G0378; J1100; J2250; J2270; J2405; J3010; J7120; Q9967

== ENCOUNTER 2025-03-10 16:28 | Outpatient (CLI) | payer MEDICARE, OTHER, SELFPAY ==
--- OUTSIDE RECORDS SUMMARY | 2025-03-10 16:31 | XMS_ITS | Clinical Summary ---
Author Organization Healthcare Address [address] [id number] Care Team Providers Care Dentist/Owner Name Role Phone Andrea Parker MD Primary Care Provider [phone] Family History Medical History Relation Name Comments Hypertension Mother Hypothyroidism Mother Relation Name Status Comments Mother Social History Tobacco Use Types Packs/Day Years Used Date Smoking Tobacco: Never Alcohol Use Standard Drinks/Week Comments No 0 (1 standard drink = 0.6 oz pur e alcohol) Comments Unknown Sex and Gender Information Value Date Recorded Sex Assigned at Not on file Legal Sex Female 7:46 PM EDT Gender Identity Not on file Sexual Orientation Not on file Last Filed Vital Signs Vital Sign Reading Time Taken Comments Blood Pressure 130/69 10/29/2018 10:19 AM EST Pulse - - Temperature - - Respiratory Rate - - Oxygen Saturation - - Inhaled Oxygen Concentration - - Weight 75.6 kg (166 lb 10.7 oz) 019 10:19 AM EST Height 160 cm (5' 3 ) 10/29/2018 10:19 AM EST Body Mass Index 29.52 10/29/2018 10:19 AM EST Plan of Treatment Not on file Care Teams Dentist/Owner Relationship Specialty Start Date End Date Andrea Parker MD [facility] [place] [address] PCP - General 01/22/21
--- NOTE | 2025-03-10 16:32 | XR_ITS ---
FINAL REPORT CLINICAL HISTORY: PAIN IN RIGHT SHOULDER COMPARISON: None FINDINGS: RIGHT SHOULDER Three views demonstrate no acute fracture or dislocation. There are mild hypertrophic changes in the acromioclavicular joint. The glenohumeral joint is intact. The soft tissues are unremarkable. IMPRESSION: Mild degenerative changes without acute process. Reviewed, Interpreted and Dictated by Alejandro Amador MD Transcribed by Mari Yap Authenticated and [facility]
--- NOTE | 2025-03-10 16:32 | XR_ITS ---
FINAL REPORT CLINICAL HISTORY: LEFT KNEE PAIN COMPARISON: None FINDINGS: LEFT KNEE 3 views of the left knee were obtained. There is no acute fracture or dislocation. Mild narrowing of the medial compartment joint space. Osteophytes are seen along the undersurface of the patella. Soft tissues are unremarkable. IMPRESSION: Mild osteoarthritis without acute bony abnormality. Reviewed, Interpreted and Dictated by Alejandro Amador MD Transcribed by Mari Yap Authenticated and [facility]
--- NOTE | 2025-03-10 16:33 | XR_ITS ---
FINAL REPORT CLINICAL HISTORY: RIGHT KNEE PAIN COMPARISON: None FINDINGS: RIGHT KNEE 3 views of the right knee were obtained. There is no acute fracture or dislocation. Mild narrowing of the medial compartment joint space is noted. There are small osteophytes in the medial joint margin. Sharpening of the tibial spines is noted. Soft tissues are unremarkable. IMPRESSION: Mild osteoarthritis in the medial joint margin without acute bony abnormality. Reviewed, Interpreted and Dictated by Alejandro Amador MD Transcribed by Mari Yap Authenticated and . [facility]
== END 2025-03-10 23:59 | disposition home or self-care (01) ==
LOC: RAD 16:29
PROVIDERS: PCP Family Medicine; Visit Provider Nurse Practitioner Family
DX: M17.0 Bilateral primary osteoarthritis of knee (principal); M19.011 Primary osteoarthritis, right shoulder
CPT/HCPCS: 73030; 73562

== ENCOUNTER 2025-03-20 09:02 | Outpatient (CLI) | payer MEDICARE, OTHER, SELFPAY ==
--- NOTE | 2025-03-20 09:06 | XR_ITS ---
FINAL REPORT CLINICAL HISTORY: SCREENING COMPARISON: None FINDINGS: Using L1-4, the bone mineral density of the spine is 1.277 g/cm2, corresponding to T-score of 2.1. Using the left hip, the bone mineral density of the femoral neck is 0.792 g/cm2, corresponding to a T-score of -1.2. Using the right hip, the bone mineral density of the femoral neck is 0.690 g/cm2, corresponding to a T-score of -1.4. NOTE: T-score: Standard deviation compared with peak bone mass of young adult mean. *Following the recommendations of the International Society of Bone densitometry, classification of hip BMD is based on the lower of two T-scores; total hip or femoral neck. IMPRESSION: Diminished bone mineral density of the femoral necks bilaterally, consistent with osteopenia. Normal bone mineral density of the lumbar spine. Reviewed, Interpreted and Dictated by Alejandro Amador MD Transcribed by Jaelyn Cantu Authenticated and [facility]
--- OUTSIDE RECORDS SUMMARY | 2025-03-20 09:06 | XMS_ITS | Clinical Summary ---
Author Organization Healthcare Address [address] [id number] Care Team Providers Care Supervisor Pigment Making Name Role Phone Andrea Parker MD Primary Care Provider [phone] Family History Medical History Relation Name Comments [...] of Treatment Not on file Care Teams Supervisor Pigment Making Relationship Specialty Start Date End Date Andrea Parker MD [facility] [place] [address] PCP - General 01/22/21
== END 2025-03-20 23:59 | disposition home or self-care (01) ==
LOC: RAD 09:03
PROVIDERS: PCP Family Medicine; Visit Provider Family Medicine
DX: M85.852 Other specified disorders of bone density and structure, left thigh (principal); M85.851 Other specified disorders of bone density and structure, right thigh; M81.0 Age-related osteoporosis without current pathological fracture
CPT/HCPCS: 77080

== ENCOUNTER 2025-04-03 08:51 | Outpatient (CLI) | payer MEDICARE, OTHER, SELFPAY ==
--- NOTE | 2025-04-03 08:54 | MR_ITS ---
FINAL REPORT TECHNIQUE: Multiplanar MR of the right knee without contrast CLINICAL HISTORY: R KNEE PAIN, feels like knee catches COMPARISON: none FINDINGS: Articular cartilage: Mild diffuse thinning, greatest medially. Marrow signal: Unremarkable Joint fluid: Moderate joint effusion. Calcified joint body within a synovial recess near the fibular head measuring 6 mm seen on axial proton density image 23 and sagittal proton density 9. There are at least 1 or 2 other joint bodies identified. Cystic lesion in the popliteal fossa favored to represent ganglion cysts over Lay's cyst measuring up to 19 mm. Menisci: Complex tear posterior horn and body medial meniscus. Lateral meniscus intact. Ligaments: Collateral, cruciate and patellofemoral ligaments intact Tendons: Quadriceps and patellar tendon normal Edema superficial to the patellar tendon compatible with prepatellar bursitis. IMPRESSION: Medial meniscal tear. Joint bodies near fibular head. Prepatellar bursitis. Reviewed, Interpreted and Dictated by Aminta Stanley MD Transcribed by Mari Yap Authenticated and [facility]
--- OUTSIDE RECORDS SUMMARY | 2025-04-03 08:59 | XMS_ITS | Clinical Summary ---
Author Organization Healthcare Address [address] [id number] Care Team Providers Care Venereal Disease Control Head Name Role Phone Andrea Parker MD Primary Care Provider [phone] Family History Medical History Relation Name Comments [...] of Treatment Not on file Care Teams Venereal Disease Control Head Relationship Specialty Start Date End Date Andrea Parker MD [facility] [place] [address] PCP - General 01/22/21
== END 2025-04-03 23:59 | disposition home or self-care (01) ==
LOC: RAD 08:51
PROVIDERS: PCP Family Medicine; Visit Provider Nurse Practitioner Family
DX: S83.241A Other tear of medial meniscus, current injury, right knee, initial encounter (principal); M70.41 Prepatellar bursitis, right knee; M23.41 Loose body in knee, right knee
CPT/HCPCS: 73721

== ENCOUNTER 2025-08-13 14:24 | Outpatient (CLI) | payer MEDICARE, OTHER, SELFPAY ==
--- OUTSIDE RECORDS SUMMARY | 2025-01-29 05:20 | XMS_ITS ---
Author Organization [facility] Address [address] [facility] [address] [place] [id number] Care Team Providers Care Rn Cardiac Cath Name Role Phone Giuseppe Chavez Primary Care Provider Ellen Parker Unavailable [phone] Gwen Mendieta Unavailable [phone] Allergies Allergen (clinical drug ingredient) Drug/Non Drug Allergy documented on EMR Reaction Allergy Type Onset Date Status metoclopramide Reglan Unknown Drug Allergy Ac tive Substance with penicillin structure and antibacterial mechanism of action (substance) Penicillins Unknown Drug Allergy Active Substance with sulfonamide structure and antibacterial mechanism of action (substance) Sulfa Antibiotics Unknown Drug Allergy Active REASON FOR VISIT [facility] f/u Medications Medication SIG (Take, Route, Frequency, Duration) Notes Start Date End Date Status levoFLOXacin 500 MG 1 tablet Orally Once a day; Duration: 10 days 01/09/2025 Active Hyoscyamine Sulfate 0.125 MG 1 tablet on the tongue and allow to dissolve as needed Orally every 4 hrs, prn 01/09/2025 Active Estradiol 0.5 MG TAKE 1 TABLET BY TRISTAN EVERY DAY; Duration: 90 Active Ondansetron 4 MG 1 tablet on the tong ue and allow to dissolve Orally three times a day as needed; Duration: 30 days 01/09/2025 Active amLODIPine Besylate 5 MG 1 tablet Orally Once a day; Duration: 30 days Active Vitamin D3 50 MCG (1999) 1 cap(s) ora lly twice a day Active Aspirin 81 MG 1 TAB ONCE A DAY 01/06/2012 Active Lisinopril-hydroCHLOROthiazi de 20-12.5 MG 1 tablet Orally Once a day; Duration: 90 days Active Metoprolol Tartrate 100 MG TAKE 1 TABLET BY MOUTH TWICE A DAY Active Rosuvastatin Calcium 20 MG 1 tablet Oral ly Once a day; Duration: 90 days Active Levothyroxine Sodium 50 MCG 1 tab(s) ora lly once a day; Duration: 90 days Active Claritin 10 MG 1 tab(s) orally once a day; Duration: 90 days Active Omeprazole 20 MG 1 cap(s) orally once a day; Duration: 90 days Active Ondansetron HCl 4 MG 1 tablet Orally Onc e a day Active Problems Problem Type SNOMED Code ICD Code Onset Dates Problem Status W/U Status Risk Notes Problem History of cholecystectomy ([id number]) Status post cholecystectomy (Z90.49) Active confirmed Vital Signs Weight 160.2 lbs 01/29/2025 Blood pressure systolic 120 mm Hg 01/30/20 25 Blood pressure diastolic 78 mm Hg 025 Heart Rate 59 /min 01/29/2025 Height 63 in 01/29/2025 BMI 28.38 kg/m2 01/29/2025 Encounters Encounter Location Date Provider Diagnosis [facility] [address] [place], [place] [id number] 01/29/2025 Gwen Mendieta Acute cholecystitis K81.0 and Status post cholecystectomy Z90.49 Assessments Encounter Date Diagnosis (ICD Code) Assessment Notes Treatment Notes Treatment Clinical Notes Section Notes 01/29/2025 Acute cholecystitis (ICD-10 - K81.0) Patient is doing well post surgery. She has seen Dr. Aaron and he has given her restrictions. She is going to finish the flagyl and levaquin. 01/29/2025 Status post cholecystectomy (ICD-10 - Z90.49) 01/29/2025 Other Discharge summary with available lab/diagnostic imaging results obtained and reviewed. Discharge medication list reconciled. Appropriate counseling provided. Moderate Complexity Plan Of Treatment Treatment Notes Assessment Notes Acute cholecystitis Patient is doing wel l post surgery. She has seen Dr. Aaron and he has given her restrictions. She is going to finish the flagyl and levaquin. Other Discharge summary wi th available lab/diagnostic imaging results obtained and reviewed. Discharge medication list reconciled. Appropriate counseling provided. Moderate Complexity Next Appt Details Follow Up: 2 Weeks, Reason: Progress Notes * MACY STEINER:1960 (65 yo F)Acc No.[id number]:01/29/2025 Patient: STANLEY SHANKS Provider: TANNER Travis :1960 A ge:64 Y S ex:Female Date:01/29/2025 Address:[facility] [address], [place] , [id number] Pcp:Giuseppe Chavez Subjective: * Chief Complaints: * [address] [facility] f/u. * HPI: H PI: Pt presents for a follow-up from [facility] for cholecystectomy. Pt sts that she has seen Dr. Aaron and is healing well. Patient is here today for a Transition of Care Visit. Discharge from the following Facility: [facility] ,Discharge date: 01/15/2025 ,Date of phone contact following discharge: 01/17/2025. * ROS: D ERMATOLOGY: no R zina. n o H dav. G ASTROENTEROLOGY: no N ausea. H eartburn y es, w ith certain foods. n o V omiting. n o D iarrhea. n o C onstipation. U ROLOGY: no D ifficulty urinating. n o B lood in urine. * Medical History: H ypertension, MVP with Mild Regurgitation, Bicuspid Aortic Valve, Echo 10/2005, DPT, 03/28/2009, Head CT, Normal 06/07/2009, Eevated Sed Rate, 2008, Hypothyroidism, GERD, DDD/DJD of lumbar spine. * Surgical History: P artial Hysterectomy 1995, Cholecystectomy - Dr. Aaron 01/2025. * Hospitalization/Major Diagno stic Procedure: S lipped and Fell- [facility] ER 06/07/2009, Dehydration- [facility] ER 02/28/2010, Trigonitis, Urethral Dilatation, Dr. Russell 03/01/2011, Chest Pain- [facility] ER 09/18/2013, High B/P- [facility] ER 01/07/2021, Nausea, Vomiting, and Diarrhea - [facility] ER 02/07/2024, [facility] ER - Nausea, Vomiting and Diarrhea 01/2025. * Family History: F ather: . M other: alive, hypothyroidism, dementia, diagnosed with Hypertension.?1 son(s) , 2 daughter(s) - healthy. . * Social History: C URRENT TOBACCO USE S moking Status: Patient does NOT smoke. C affeine: no. Home smoke detector use: yes. Marital Status: , . Occupation: stays at home. Past smoking status: no, Smoking status: Does not smoke. Alcohol: No. Sexually active: yes. * Medications: T aking Levothyroxine Sodium 50 MCG Tablet 1 tab(s) orally once a day , Taking Omeprazole 20 MG Capsule Delayed Release 1 cap(s) orally once a day , Taking Claritin 10 MG Tablet 1 tab(s) orally once a day , Taking Ondansetron HCl 4 MG Tablet 1 tablet Orally Once a day , Taking Aspirin 81 MG ENTERIC COATED TABLET 1 TAB ONCE A DAY , Taking Vitamin D3 50 MCG (2000 UT) Capsule 1 cap(s) orally twice a day , Taking Metoprolol Tartrate 100 MG Tablet TAKE 1 TABLET BY MOUTH TWICE A DAY , Taking Lisinopril-hydroCHLOROthiazide 20-12.5 MG Tablet 1 tablet Orally Once a day , Taking Rosuvastatin Calcium 20 MG Tablet 1 tablet Orally Once a day , Taking amLODIPine Besylate 5 MG Tablet 1 tablet Orally Once a day , Taking Hyoscyamine Sulfate 0.125 MG Tablet Disintegrating 1 tablet on the tongue and allow to dissolve as needed Orally every 4 hrs, prn , Taking levoFLOXacin 500 MG Tablet 1 tablet Orally Once a day , Taking Ondansetron 4 MG Tablet Disintegrating 1 tablet on the tongue and allow to dissolve Orally three times a day as needed , Taking Estradiol 0.5 MG Tablet TAKE 1 TABLET BY MOUTH EVERY DAY * Allergies: P enicillins, Sulfa Antibiotics, Reglan. Objective: * Vitals: W t: 160.2, Temp: 98.0, BP: 120/78, HR: 59, Nurse: ALEXANDRE, Ht: 63, BMI:28.38. * Examination: G eneral Examination: General Appearance: N AD. C hest: n ormal shape and expansion. H eart: R SR. L ungs: c lear to auscultation. A bdomen: b owel sounds present , soft, ttp around incision sites but they are healing well. Assessment: * Assessment: 1. A cute cholecystitis - K81.0 2 . S tatus post cholecystectomy - Z90.49? Plan: * Treatment: 2. O thers Notes: Discharge summary with available lab/diagnostic imaging results obtained and reviewed. Discharge medication list reconciled. Appropriate counseling provided. Moderate Complexity * Procedure Codes: 9 9495 TRANS CARE MGMT 14 DAY DISCH, 1111F DSCHR MED/CURENT MED MERGE, G2211 Complex e/m visit add on * Follow Up: 2 Weeks * Images: Billing Information: * Visit Code: 17382 Office Visit, Est Pt., Level 3. * Procedure Codes: 34405 TRANS CARE MGMT 14 DAY DISCH. 1111F DSCHR MED/CURENT MED MERGE. G2211 Complex e/m visit add on. * Electronic signature of TANNER Owens on 08/13/2025 at 02:27 PM EST Sign off status: Pending * Provider: TANNER Travis Date: 0 01/29/2025 Generated for Lobito lockhart/Iam/eTransmitting on: 1 10/14/2024 02:27 PM EST History and Physical Notes * HPI (History of Present Illness) Category Sub-Category Detail Notes Category Not es HPI [facility] Discharge from the following Facility: [facility] ,Discharge date: 01/15/2025 ,Date of phone contact following discharge: 01/17/2025 Examination Category Sub-Category Detail Notes Category Not es General Examination Heart: RSR Lungs: clear to auscultatio n Abdomen: bowel sounds present , soft, ttp around incision sites but they are healing well General Appearance: NAD Chest: normal shape and exp ansion
--- OUTSIDE RECORDS SUMMARY | 2025-02-20 04:45 | XMS_ITS ---
Author Organization [facility] Address [address] [facility] [address] [place] [id number] Care Team Providers Care Yield Engineer Name Role Phone Giuseppe Chavez Primary Care Provider Ellen Parker Unavailable [phone] Gwen Mendieta Unavailable [phone] Allergies Allergen (clinical drug ingredient) Drug/Non Drug Allergy documented on EMR Reaction Allergy Type Onset Date Status metoclopramide Reglan Unknown Drug Allergy Ac tive Substance with penicillin structure and antibacterial mechanism of action (substance) Penicillins Unknown Drug Allergy Active Substance with sulfonamide structure and antibacterial mechanism of action (substance) Sulfa Antibiotics Unknown Drug Allergy Active Results Component Value Reference Range Notes P-Basic Metabolic Panel (BMP ) Reviewed date:02/27/2025 03:04:01 PM Interpretation:Na 133 Performing Lab: Notes/Report: Test performed by [facility], [facility] [address] [place] [address] , [address], [place] [address] Abelino Sales MD, Property Preservation Specialist CLIA: [id number] Sodium 133 135-145 mmol/L Potassium 4.2 3.5-5.3 mmol/L Chloride 97 97-108 mmol/L CO2 25 22-32 mmol/L Glucose 97 65-99 mg/dL BUN 11 8-23 mg/dL Creatinine 0.87 0.50-1.00 mg/dL Calcium 9.4 8.6-10.4 mg/dL eGFR by Creatinine 73 >59 mL/min/1.73m2 REASON FOR VISIT 3 weeks, needs bone density screening Medications Medication SIG (Take, Route, Frequency, Duration) Notes Start Date End Date Status Hyoscyamine Sulfate 0.125 MG 1 tablet on the tongue and allow to dissolve as needed Orally every 4 hrs, prn 01/09/2025 Active Lisinopril-hydroCHLOROthia zide 20-12.5 MG 1 tablet Orally Once a day; Duration: 90 days Active Rosuvastatin Calcium 20 MG 1 tablet Oral ly Once a day; Duration: 90 days Active Claritin 10 MG 1 tab(s) orally once a day; Duration: 90 days Active Omeprazole 20 MG 1 cap(s) orally once a day; Duration: 90 days Active Aspirin 81 MG 1 TAB ONCE A DAY 01/06/2012 Active Vitamin D3 50 MCG (1999 UT) 1 cap(s) orally twice a day Active amLODIPine Besylate 5 MG 1 tablet Orally Once a day; Duration: 90 days Active Potassium Chloride ER 20 MEQ 1 tablet with food Orally Once a day; Duration: 30 days 02/13/2025 Not-Taking Metoprolol Tartrate 100 MG TAKE 1 TABLET BY MOUTH TWICE A DAY Orally Twice a day; Duration: 60 days Active Levothyroxine Sodium 50 MCG 1 tab(s) orally once a day; Duration: 90 days Active Medrol 4 MG as directed Orally 02/20/2025 Active Estradiol 0.5 MG TAKE 1 TABLET BY TRISTAN TH EVERY DAY; Duration: 90 Active Vital Signs Weight 162.4 lbs 02/20/2025 Blood pressure systolic 130 mm Hg 02/21/20 25 Blood pressure diastolic 80 mm Hg 025 Heart Rate 56 /min 02/20/2025 Height 63 in 02/20/2025 BMI 28.76 kg/m2 02/20/2025 Encounters Encounter Location Date [facility] [address] [id number] 02/20/2025 Gwen Mendieta HTN (hypertension) I 10 ; Pain in right knee M25.561 ; Pain in left knee M25.562 ; Hypokalemia E87.6 and BMI 28.0-28.9,adult Z68.28 Assessments Encounter Date Diagnosis (ICD Code) Assessment Notes Treatment Notes Treatment Clinical Notes Section Notes 02/20/2025 HTN (hypertension) (ICD-10 - I10) o 02/20/2025 Pain in right knee (ICD-10 - M25.561) o 02/20/2025 Pain in left knee (ICD-10 - M25.562) o 02/20/2025 Hypokalemia (ICD-10 - E87.6) o 02/20/2025 BMI 28.0-28.9,adult (ICD-10 - Z68.28) o Plan Of Treatment Medication Medication Name Sig Start Date Stop Date Notes Metoprolol Tartrate 100 MG TAKE 1 TABLET BY MOUTH TWICE A DAY Orally Twice a day; Duration: 60 days Medrol 4 MG as directed Orally 02/20/2025 Next Appt Details Follow Up: via phone to repo rt test results, Reason: Progress Notes * EUFEMIA STEINERADOB:1960 (65 yo F)Acc No.[id number]:02/20/2025 Progress Notes Patient: STANLEY SHANKS Provider: TANNER Travis :1960 A ge:65 Y S ex:Female Date:02/20/2025 Address:[facility] [place] , [address] Pcp:Giuseppe Chavez Subjective: * Chief Complaints: * 1 . 3 weeks. 2. Needs bone density screening. * HPI: G astroenterology: The patient is here for a follow-up after gall bladder surgery. Pt states she is doing better. Pt states the incisions are healing well. Pt is needing a refill for Metoprolol sent to [facility] in [place]. K nee/Giordano: c/o knee pain B ilateral pain. Pt states her knees are swelling and some swelling in her ankles. Pt rates the pain about a 6/10 on the pain scale. Pt also c/o some popping in the knees with flexion. * ROS: D ERMATOLOGY: no R zina. n o H dav. G ASTROENTEROLOGY: no N ausea. n o V omiting. n o D iarrhea.? U ROLOGY: no D ifficulty urinating. n o B lood in urine. * Medical History: H ypertension, MVP with Mild Regurgitation, Bicuspid Aortic Valve, Echo 10/2005, DPT, 03/28/2009, Head CT, Normal 06/07/2009, Eevated Sed Rate, 2008, Hypothyroidism, GERD, DDD/DJD of lumbar spine. * Surgical History: P artial Hysterectomy 1995, Cholecystectomy - Dr. Aaron 01/2025. * Hospitalization/Major Diagno stic Procedure: S lipped and Fell- [facility] ER 06/07/2009, Dehydration- [facility] ER 02/28/2010, Trigonitis, Urethral Dilatation, Dr. Russell 03/01/2011, Chest Pain- [facility] ER 09/18/2013, High B/P- [facility] ER 01/07/2021, Nausea, Vomiting, and Diarrhea - [facility] ER 02/07/2024, [facility] ER - Nausea, Vomiting and Diarrhea 01/2025. [...] tab(s) orally once a day , Taking Aspirin 81 MG [...] Orally every 4 hrs, prn , Taking Estradiol 0.5 MG Tablet TAKE 1 TABLET BY MOUTH EVERY DAY , Taking amLODIPine Besylate 5 MG Tablet 1 tablet Orally Once a day , Not-Taking Potassium Chloride ER 20 MEQ Tablet Extended Release 1 tablet with food Orally Once a day , Discontinued Ondansetron HCl 4 MG Tablet 1 tablet Orally Once a day , Discontinued levoFLOXacin 500 MG Tablet 1 tablet Orally Once a day , Discontinued Ondansetron 4 MG Tablet Disintegrating 1 tablet on the tongue and allow to dissolve Orally three times a day as needed , Medication List reviewed and reconciled with the patient * Allergies: P enicillins, Sulfa Antibiotics, Reglan. Objective: * Vitals: W t: 162.4, Temp: 97.9, BP: 130/80, HR: 56, Nurse: CHELSEY, Ht: 63, BMI:28.76. * Examination: G eneral Examination: General Appearance: N AD. H EENT: u nremarkable.?Oral cavity: n o lesions, mucosa moist and WNL, no erythema. N jordy: s upple, no lymphadenopathy. C hest: n ormal shape and expansion. H eart: R SR. L ungs: c lear to auscultation. A bdomen: b owel sounds present, soft and nontender. N eurologic Exam: I ntact, gait normal. S kin: n ormal, no rash. P eripheral pulses: n ormal (2+) bilaterally. E xtremities: t race leg edema. K nee / Giordano: Knee: b ilateral. I nspection: e ffusion: mild.?Palpation: t enderness on medial jointline, tenderness on lateral jointline. C ollateral ligaments: i ntact medially and laterally. R oj of motion: p ainful movements. M cmurray: n egative. D rawer test: n egative. P atellofemoral joint: c repitations with movement. Assessment: * Assessment: 1. H TN (hypertension) - I10 (Primary) 2 . P ain in right knee - M25.561? 3. P ain in left knee - M25.562 4 . H ypokalemia - E87.6 5 . B LA 28.0-28.9,adult - Z68.28 o Plan: * Treatment: 2. P ain in right knee Start Medrol Tablet Therapy Pack, 4 MG, as directed, Orally, 1, Refills 0. 3. H ypokalemia L AB: P-Basic Metabolic Panel (BMP) (Collection Date & Time - 02/20/2025 09:33 AM) N a 133 Value Reference Range B UN 11 8-23 - mg/dL * C alcium 9.4 8.6-10.4 - mg/dL * C hloride 97 97-108 - mmol/L * C O2 25 22-32 - mmol/L * C reatinine 0.87 0.50-1.00 - mg/dL * G lucose 97 65-99 - mg/dL * P otassium 4.2 3.5-5.3 - mmol/L * S odium 133 L 135-145 - mmol/L * e GFR by Creatinine 73 >59 - mL/min/1.73m2 * Gwen Mendieta 02/20/2025 1 0:28:07 AM EDT >RaghuMarisol [place] 02/27/2025 02:23:03 PM EDT > Potassium is normalShea Francisco 02/27/2025 03:03:31 PM EDT > Pt informed * Procedure Codes: G 2211 Complex e/m visit add on, 1036F TOBACCO NON-USER, G8420 BMI<30 AND >=22 CALC & DOCU, G8950 PREHTN/HTN BP DOC INDCD F/U DOC, G8752 MOST RECENT SYSTOLIC BP < 140MM HG, G8754 MOST RECENT DIASTOLIC BP < 90MM HG * Follow Up: v ia phone to report test results * Images: Billing Information: * Visit Code: 12073 Office Visit, Est Pt., Level 4. * Procedure Codes: G2211 Complex e/m visit add on. 1036F TOBACCO NON-USER. G8420 BMI<30 AND >=22 CALC & DOCU. G8950 PREHTN/HTN BP DOC INDCD F/U DOC. G8752 MOST RECENT SYSTOLIC BP < 140MM HG. G8754 MOST RECENT DIASTOLIC BP < 90MM HG. * Electronic signature of TANNER Owens on 08/13/2025 at 02:28 PM EST Sign off status: Pending * Provider: TANNER Travis Date: 0 02/20/2025 Generated for Nataliai ng/Famehrang/eTransmitting on: 1 10/14/2024 02:28 PM EST History and Physical Notes * HPI (History of Present Illness) Category Sub-Category Detail Notes Category Not es Knee/Giordano knee pain Bilateral pain. Pt states her knees are swelling and some swelling in her ankles. Pt rates the pain about a 6/10 on the pain scale. Pt also c/o some popping in the knees with flexion Examination Category Sub-Category Detail Notes Category Not es General Examination HEENT: unremarkable Heart: RSR Lungs: clear to auscultatio n Abdomen: bowel sounds present , soft and nontender Extremities: trace leg edema General Appearance: NAD Skin: normal, no rash Neurologic Exam: Intact, gait normal Neck: supple, no lymphaden opathy Oral cavity: no lesions, mucosa m oist and WNL, no erythema Peripheral pulses: normal (2+) bilatera lly Chest: normal shape and exp ansion Knee / Giordano Ligia: negative Drawer test: negative Patellofemoral joint: crepitations with movement Palpation: tenderness on medial jointline, tenderness on lateral jointline Knee: bilateral Inspection: effusion: mild Range of motion: painful movements Collateral ligaments: intact medially an d laterally
--- OUTSIDE RECORDS SUMMARY | 2025-03-10 09:45 | XMS_ITS ---
Author Organization [facility] Address [address] [facility] [address] [place] Reyes [id number] Care Team Providers Care Mems Integration Engineer Name Role Phone Giuseppe Chavez Primary Care Provider [phone] Ellen Parker Unavailable [phone] Ca Carvalho Unavailable [phone] Allergies Allergen (clinical drug ingredient) Drug/Non Drug Allergy documented on EMR Reaction Allergy Type Onset Date Status Reglan Unknown Drug Allergy Active Substance with penicillin structure and antibacterial mechanism of action (substance) Penicillins Unknown Drug Allergy Active Substance with sulfonamide structure and antibacterial mechanism of action (substance) Sulfa Antibiotics Unknown Drug Allergy Active Results Component Value Reference Range Notes CBC Venipuncture (in house) Reviewed date:03/11/2025 08:24:06 AM Interpretation: Performing Lab: Notes/Report: wbc 11.6 3.5 - 10 lymph 40.3 15 - 50 mid 5.7 2 - 15 gran 54.0 35 - 80 rbc 3.93 3.5 - 5.5 hgb 11.7 11.5 - 16.5 hct 34.8 35 - 55 mcv 88.5 75 - 100 mch 29.9 25 - 35 mchc 33.8 31 - 38 platlet 289 100 - 400 P-Arthritis Panel, [employer] Reviewed date:03/17/2025 09:46:46 AM Interpretation:esr 43, RF 16 Performing Lab: Notes/Report: Test performed by [employer] [facility] , [address], [place] [address] Abelino Sales MD, Glove Operator CLIA: [id number] Erythrocyte Sedimentation Rate (ESR), Automated 43 <31 mm/hr Rheumatoid Factor 16.0 <14.1 IU/mL C-Reactive Protein (CRP) 0.41 <0.50 mg/dL Antinuclear Antibodies (LASHAE) Screen, Reflex LASHAE 9 Panel Negative Negative This test is performed by Multiplex Bead Immunoassay methodology. Antinuclear Antibodies (LASHAE) Result Note SEE COMMENT For positive Autoantibodies, please refer to the interpretive chart here: [email or web address] CCP Antibodies <0.5 <0.5-3.0 U/mL P-Uric Acid Reviewed date:03/17/2025 09:47:04 AM Interpretation:7 Performing Lab: Notes/Report: Test performed by [employer], [address] , [address], [place] [address] Abelino Sales MD, Glove Operator CLIA: [id number] Uric Acid 7.0 2.4-7.0 mg/dL X ray : Knee, left Reviewed date:03/17/2025 09:28:38 AM Interpretation:mild OA Performing Lab: Notes/Report: mild OA X ray : Knee, right Reviewed date:03/17/2025 09:27:38 AM Interpretation:mild OA Performing Lab: Notes/Report: mild OA X ray : Shoulder, right Reviewed date:03/17/2025 09:29:22 AM Interpretation:mild DJD Performing Lab: Notes/Report: mild DJD REASON FOR VISIT pain in knees and shoulder Medications Medication SIG (Take, Route, Frequency, Duration) Notes Start Date End Date Status Potassium Chloride ER 20 MEQ 1 tablet with food Orally Once a day; Duration: 90 days 02/13/2025 Active Omeprazole 20 MG 1 cap(s) orally once a day; Duration: 90 days Active Levothyroxine Sodium 50 MCG 1 tab(s) orally once a day; Duration: 90 days Active Medrol 4 MG as directed Orally 02/20/2025 Not-Taking Metoprolol Tartrate 100 MG TAKE 1 TABLET BY MOUTH TWICE A DAY Orally Twice a day; Duration: 60 days Active Debrox 6.5 % 5 drops into affecte d ear Otic Twice a day; Duration: 30 days 03/10/2025 Active Rosuvastatin Calcium 20 MG 1 tablet Oral ly Once a day; Duration: 90 days Active Hyoscyamine Sulfate 0.125 MG 1 tablet on the tongue and allow to dissolve as needed Orally every 4 hrs, prn 01/09/2025 Active Estradiol 0.5 MG TAKE 1 TABLET BY TRISTAN TH EVERY DAY; Duration: 90 Active amLODIPine Besylate 5 MG 1 tablet Orally Once a day; Duration: 90 days Active Aspirin 81 MG 1 TAB ONCE A DAY 01/06/2012 Active Claritin 10 MG 1 tab(s) orally once a day; Duration: 90 days Active Vitamin D3 50 MCG (1999) 1 cap(s) orally twice a day Active Lisinopril-hydroCHLOROthia zide 20-12.5 MG 1 tablet Orally Once a day; Duration: 90 days Active Meloxicam 15 MG 1 tablet Orally anders y; Duration: 30 days 03/10/2025 Active Problems Problem Type SNOMED Code ICD Code Onset Dates Problem Status W/U Status Risk Notes Problem Arthritis (2647319) Arthritis (M19.90) Active confirmed Vital Signs Weight 164 lbs 03/10/2025 Blood pressure systolic 120 mm Hg 03/10/20 25 Blood pressure diastolic 80 mm Hg 025 Heart Rate 67 /min 03/10/2025 Height 63 in 03/10/2025 BMI 29.05 kg/m2 03/10/2025 Encounters Encounter Location Date Provider Diagnosis [facility] [address] [place] [id number] 03/10/2025 Ca Carvalho Knee pain, right M25.561 ; Knee pain, left M25.562 ; Pain in right shoulder M25.511 ; Cerumen impaction H61.20 ; Arthritis M19.90 and BMI 29.0-29.9,adult Z68.29 Assessments Encounter Date Diagnosis (ICD Code) Assessment Notes Treatment Notes Treatment Clinical Notes Section Notes 03/10/2025 Knee pain, right (ICD-10 - M25.561) Since she continues to endorse knee pain, we will go ahead and get some xrays to look for any trauma or arthritic changes. 03/10/2025 Knee pain, left (ICD-10 - M25.562) 03/10/2025 Pain in right shoulder (ICD-10 - M25.511) We will x-ray her shoulder to make sure there is no injury. Suspect this is arthritic related, but will rule out trauma. Take Meloxicam as needed to help with inflammatory response. No steroid pack today as she just got off of steroids and recent surgery. 03/10/2025 Cerumen impaction (ICD-10 - H61.20) Take as needed it will help wiht her wax buildup in her ears. 03/10/2025 Arthritis (ICD-10 - M19.90) Arthritis panel pending. Ordered Meloxicam but told her not to take her Naproxen, ibuprofen or advil as this is the same class. She can continue to take tylenol as needed. Rest, ice, elevate, and some heat. Talked about since not much exercise to start watching calories and portion control. Losing weight would help take off some of the burden for her back ad knees. 03/10/2025 BMI 29.0-29.9,adul t (ICD-10 - Z68.29) Plan Of Treatment Medication Medication Name Sig Start Date Stop Date Notes Debrox 6.5 % 5 drops into affecte d ear Otic Twice a day; Duration: 30 days 03/10/2025 Meloxicam 15 MG 1 tablet Orally daily; Duration: 30 days 0 03/10/2025 Treatment Notes Assessment Notes Knee pain, right Since she continues to endorse knee pain, we will go ahead and get some xrays to look for any trauma or arthritic changes. Pain in right shoulder We will x-ray her shoulder to make sure there is no injury. Suspect this is arthritic related, but will rule out trauma. Take Meloxicam as needed to help with inflammatory response. No steroid pack today as she just got off of steroids and recent surgery. Cerumen impaction Take as needed it wi ll help wiht her wax buildup in her ears. Arthritis Arthritis panel pend ing. Ordered Meloxicam but told her not to take her Naproxen, ibuprofen or advil as this is the same class. She can continue to take tylenol as needed. Rest, ice, elevate, and some heat. Talked about since not much exercise to start watching calories and portion control. Losing weight would help take off some of the burden for her back ad knees. Next Appt Details Follow Up: 2 Weeks, Reason: Progress Notes * MACY STEINER:1960 (65 yo F)Acc No.[id number]:03/10/2025 Progress Notes Patient: STANLEY SHANKS Provider: MARVIN Frankel :1960 A ge:65 Y S ex:Female Date:03/10/2025 Address:[facility] [address] [place] , [id number] Pcp:Giuseppe Chavez Subjective: * Chief Complaints: * 1 . Pain in knees and shoulder. * HPI: K nee/Giordano: 65 year old female presents with c/o knee pain P t sts she has been having pain in both of her knees. Pt sts they are very sore and sts her rt knee likes to knock. Pt sts her knees have been hurting for a while niw. Pt sts she has seen Gwen about this once before and was given a z-pack and sts that helped for a little while and sts after she stopped taking it the pain came back. Pt sts she has also used ice on her knees which did not help. c/o swelling. c/o Lower Back Pain. c/o locking of the joint r ight knee. c/o sensation of knee giving out. c/o Direct Trauma r ight knee 2 years ago. Denies : redness. D enies : tingling/ numbness. A nkle/Foot: c/o Swelling P t sts her ankle has been swelling and she has been propping it up to help wiht swelling. Pt sts today it has not been bad. S houlder/Upper arm: c/o shoulder pain P t sts she is having pain in her rt shoulder and sts it started a few days ago. Denies : redness. D enies : Previous Injury. D enies : tingling/ numbness. E NT/respiratory: c/o nasal congestion. Denies : sore throat. D enies : cough. D enies : rhinorrhea. Fever c hills. e ar pain P t sts when she was here last to see Gwen she also had fluid in the rt ear and sts she believes that could be the result of her rt shoulder pain, but sts the z- pack was given for her ear as well. * ROS: D ERMATOLOGY: no R zina. [...] Diagno stic Procedure: S lipped and Fell- [facility] 06/07/2009, Dehydration- [facility] 02/28/2010, Trigonitis, Urethral Dilatation, Dr. Russell 03/01/2011, Chest Pain- [facility] 09/18/2013, High B/P- [facility] 01/07/2021, Nausea, Vomiting, and Diarrhea - [facility] 02/07/2024, [facility] - Nausea, Vomiting and Diarrhea [...] cap(s) orally twice a day , Taking Lisinopril-hydroCHLOROthiazide 20-12.5 MG Tablet 1 [...] tablet Orally Once a day , Taking Metoprolol Tartrate 100 MG Tablet TAKE 1 TABLET BY MOUTH TWICE A DAY Orally Twice a day , Taking Potassium Chloride ER 20 MEQ Tablet Extended Release 1 tablet with food Orally Once a day , Not-Taking Medrol 4 MG Tablet Therapy Pack as directed Orally , Medication List reviewed and reconciled with the patient * Allergies: P enicillins, Sulfa Antibiotics, Reglan. Objective: * Vitals: W t: 164, Temp: 97.9, BP: 120/80, HR: 67, Nurse: [facility], Ht: 63, BMI:29.05. * Examination: G eneral Examination: General Appearance: N AD, appears healthy. H EENT: n ormal, PERRLA, TM's normal, some cerumen. O ral cavity: n ormal. N jordy: n o lymphadenopathy. H eart: R RR. L ungs: n ormal, clear to auscultation. P eripheral pulses: n ormal (2+) bilaterally. K nee / Giordano: Knee: b ilateral. I nspection: m ild swelling. P alpation: t enderness on medial jointline, tenderness on lateral jointline. R oj of motion: r estricted on extension, painful movements. S houlder / Upper arm: Shoulder: r ight. I nspection: n o swelling or redness. R oj of motion: r estricted rotations and abduction. S trength: n ormal. Assessment: * Assessment: 1. K nee pain, right - M25.561 (Primary) 2 . K nee pain, left - M25.562? 3. P ain in right shoulder - M25.511 4 . C erumen impaction - H61.20 5 . A rthritis - M19.90 6 . B CA 29.0-29.9,adult - Z68.29 Plan: * Treatment: Notes: Since she continues to endorse knee pain, we will go ahead and get some xrays to look for any trauma or arthritic changes. ??2.?Knee pain, left?Imaging: X ray : Knee, left (Performed Date - 03/10/2025)?mild OA* Ca Carvalho 03/17/2025 09:27:57 AM EDT >I spoke with pt and reported results; she continues with Mobic 3.?Pain in right shoulder?Imaging: X ray : Shoulder, right (Performed Date - 03/10/2025)?mild DJD* Cristiana Carvalhoine 03/17/2025 09:28:46 AM EDT >I spoke with pt and reported results Notes: We will x-ray her shoulder to make sure there is no injury. Suspect this is arthritic related, but will rule out trauma. Take Meloxicam as needed to help with inflammatory response. No steroidpack today as she just got off of steroids and recent surgery.??4.?Cerumen impaction? Start Debrox Solution, 6.5 %, 5 drops into affected ear, Otic, Twice a day, 30 days, 15 ML, Refills2.?? Notes: Take as needed it will help wiht her wax buildup in her ears.?? 5.?Arthritis?LAB: P-Arthritis Panel, [facility] (Collection Date & Time - 03/10/2025 02:47 PM)?esr 43, RF 16* Value Reference Range A ntinuclear Antibodies (LASHAE) Result Note SEE COMMENT - * A ntinuclear Antibodies (LASHAE) Screen, Reflex LASHAE 9 Panel Negative Negative - * C CP Antibodies <0.5 <0.5-3.0 - U/mL * C -Reactive Protein (CRP) 0.41 <0.50 - mg/dL * E rythrocyte Sedimentation Rate (ESR), Automated 43 H <31 - mm/hr * R heumatoid Factor 16.0 H <14.1 - IU/mL * Chanell Carvalhoharine 03/17/2025 09:29:31 AM EDT >I spoke with pt and reported results ?LAB: P-Uric Acid (Collection Date & Time - 03/10/2025 02:47 PM)?7* Value Reference Range U yolande Acid 7.0 2.4-7.0 - mg/dL * Deven Ca 03/17/2025 09:32:41 AM EDT >I spoke with pt and reported results; will start allopurinol ; repeat Uric acid in 3-4 months; see encounter ?LAB: CBC Venipuncture (in house) (Collection Date & Time - 03/10/2025)* Value Reference Range w bc 11.6 3.5 - 10 * l ymph 40.3 15 - 50 * m id 5.7 2 - 15 * g ran 54.0 35 - 80 * r bc 3.93 3.5 - 5.5 * h gb 11.7 11.5 - 16.5 * h ct 34.8 35 - 55 * m cv 88.5 75 - 100 * m ch 29.9 25 - 35 * m chc 33.8 31 - 38 * p latlet 289 100 - 400 * Leola Lloyd 03/10/2025 04:1 0:52 PM EDT > Provider reviewed results while patient in office.Ca Carvalho 03/11/2025 08:24:04 AM EDT > Notes: Arthritis panel pending. Ordered Meloxicam but told her not to take her Naproxen, ibuprofen or advil as this is the same class. She can continue to take tylenol as needed. Rest, ice, elevate, and some heat. Talked about since not much exercise to start watching calories and portion control. Losing weight would help take off some of the burden for her back ad knees.?? * Procedure Codes: G 2211 Complex e/[place], [address] CBC WITH AUTO DIFF, 98509 VENIPUNCT, ROUTINE*, 1036F TOBACCO NON-USER, G8420 BMI<30 AND >=22 CALC & DOCU, G8783 BP SCR PRFRM RCMDD DEFIND SCR INTVL, G8752 MOST RECENT SYSTOLIC BP < 140MM HG, G8754 MOST RECENT DIASTOLIC BP < 90MM HG * Follow Up: 2 Weeks * Images: Billing Information: * Visit Code: 45976 Office Visit, Est Pt., Level 4. * Procedure Codes: G2211 Complex e/[place]. [address] CBC WITH AUTO DIFF. 40722 VENIPUNCT, ROUTINE*. 1036F TOBACCO NON-USER. G8420 BMI<30 AND >=22 CALC & DOCU. G8783 BP SCR PRFRM RCMDD DEFIND SCR INTVL. G8752 MOST RECENT SYSTOLIC BP < 140MM HG. G8754 MOST RECENT DIASTOLIC BP < 90MM HG. * Electronic signature of Radha patel Deven , BROACH SETTER on 08/13/2025 at 02:29 PM EST Sign off status: Pending * Provider: MARVIN Frankel Date: 0 03/10/2025 Generated for Lobito lockhart/Iam/Kenrick on: 1 10/14/2024 02:29 PM EST History and Physical Notes * HPI (History of Present Illness) Category Sub-Category Detail Notes Category Not es ENT/respiratory sore throat ear pain Pt sts when she was here last to see Gwen she also had fluid in the rt ear and sts she believes that could be the result of her rt shoulder pain, but sts the z-pack was given for her ear as well cough Fever chills rhinorrhea nasal congestion Knee/Giordano Lower Back Pain tingling/ numbness knee pain Pt sts she has been having pain in both of her knees. Pt sts they are very sore and sts her rt knee likes to knock. Pt sts her knees have been hurting for a while niw. Pt sts she has seen Gwen about this once before and was given a z-pack and sts that helped for a little while and sts after she stopped taking it the pain came back. Pt sts she has also used ice on her knees which did not help locking of the joint right knee sensation of knee giving out swelling redness Direct Trauma right knee 2 years a go Ankle/Foot Swelling Pt sts her ankle has been swelling and she has been propping it up to help wiht swelling. Pt sts today it has not been bad Shoulder/Upper arm tingling/ numbness Previous Injury redness shoulder pain Pt sts she is having pain in her rt shoulder and sts it started a few days ago Examination Category Sub-Category Detail Notes Category Not es General Examination HEENT: normal, PERR LA, TM's normal, some cerumen Heart: RRR Lungs: normal, clear to aus cultation General Appearance: NAD, appears healthy Neck: no lymphadenopathy Oral cavity: normal Peripheral pulses: normal (2+) bilatera lly Knee / Giordano Palpation: tenderness on me dial jointline, tenderness on lateral jointline Knee: bilateral Inspection: mild swelling Range of motion: restricted on extens ion, painful movements Shoulder / Upper arm Range of motion: restricted rotat ions and abduction Strength: normal Shoulder: right Inspection: no swelling or redne ss
--- OUTSIDE RECORDS SUMMARY | 2025-03-24 06:30 | XMS_ITS ---
Author Organization [facility] Address [address] [facility] [address] [place] [id number] Care Team Providers Care Standards Analyst Name Role Phone Giuseppe Chavez Primary Care Provider [phone] Ellen Parker Unavailable [phone] Ca Carvalho Unavailable [phone] Allergies Allergen (clinical drug ingredient) Drug/Non Drug Allergy documented on EMR Reaction Allergy Type Onset Date Status metoclopramide Reglan Unknown Drug Allergy Ac tive Substance with penicillin structure and antibacterial mechanism of action (substance) Penicillins Unknown Drug Allergy Active Substance with sulfonamide structure and antibacterial mechanism of action (substance) Sulfa Antibiotics Unknown Drug Allergy Active Results Component Value Reference Range Notes MRI : Knee, right, without c ontrast Reviewed date:04/16/2025 09:55:29 AM Interpretation:Abnormal Performing Lab: Notes/Report: Abnormal REASON FOR VISIT 2 weeks Medications Medication SIG (Take, Route, Frequency, Duration) Notes Start Date End Date Status Allopurinol 100 MG 1 tablet Orally Once a day; Duration: 30 days 03/17/2025 Active Debrox 6.5 % 5 drops into affecte d ear Otic Twice a day; Duration: 30 days 03/10/2025 Active Meloxicam 15 MG 1 tablet Orally anders y; Duration: 30 days 03/10/2025 Active Potassium Chloride ER 20 MEQ 1 tablet wi th food Orally Once a day; Duration: 90 days 02/13/2025 Active Metoprolol Tartrate 100 MG TAKE 1 TABLET BY MOUTH TWICE A DAY Orally Twice a day; Duration: 60 days Active Voltaren Arthritis Pain 1 % apply to kne e and shoulder Externally 3 times a day; Duration: 90 days 03/24/2025 Active amLODIPine Besylate 5 MG 1 tablet Orally Once a day; Duration: 90 days Active Estradiol 0.5 MG TAKE 1 TABLET BY TRISTAN TH EVERY DAY; Duration: 90 Active Hyoscyamine Sulfate 0.125 MG 1 tablet on the tongue and allow to dissolve as needed Orally every 4 hrs, prn 01/09/2025 Active Rosuvastatin Calcium 20 MG 1 tablet Oral ly Once a day; Duration: 90 days Active Lisinopril-hydroCHLOROthiazi de 20-12.5 MG 1 tablet Orally Once a day; Duration: 90 days Active Vitamin D3 50 MCG (1999 UT) 1 cap(s) ora lly twice a day Active Aspirin 81 MG 1 TAB ONCE A DAY 01/06/2012 Active Claritin 10 MG 1 tab(s) orally once a day; Duration: 90 days Active Omeprazole 20 MG 1 cap(s) orally once a day; Duration: 90 days Active Levothyroxine Sodium 50 MCG 1 tab(s) ora lly once a day; Duration: 90 days Active Vital Signs Weight 164.2 lbs 03/24/2025 Blood pressure systolic 126 mm Hg 03/24/20 25 Blood pressure diastolic 72 mm Hg 025 Heart Rate 60 /min 03/24/2025 Height 63 in 03/24/2025 BMI 29.08 kg/m2 03/24/2025 Encounters Encounter Location Date Provider Diagnosis [facility] [address] [phone] 03/24/2025 Ca Carvalho Acute pain of right knee M25.561 and BMI 29.0-29.9,adult Z68.29 Assessments Encounter Date Diagnosis (ICD Code) Assessment Notes Treatment Notes Treatment Clinical Notes Section Notes 03/24/2025 Acute pain of right knee (ICD-10 - M25.561) We discussed to continue the Meloxicam and she can have tylenol as needed for pain. 1 tablet 500mg should be enough. We will send in a rx for Voltaren gel she is to massage this in for knees and it should help with the pain. presented PT and she is not interested 03/24/2025 BMI 29.0-29.9,adul t (ICD-10 - Z68.29) Plan Of Treatment Medication Medication Name Sig Start Date Stop Date Notes Voltaren Arthritis Pain 1 % apply to kne e and shoulder Externally 3 times a day; Duration: 90 days 03/24/2025 Treatment Notes Assessment Notes Acute pain of right knee We discussed to continue the Meloxicam and she can have tylenol as needed for pain. 1 tablet 500mg should be enough. We will send in a rx for Voltaren gel she is to massage this in for knees and it should help with the pain. presented PT and she is not interested Next Appt Details Follow Up: 2 Weeks, Reason: Progress Notes * ALIDA STEINERB:1960 (65 yo F)Acc No.[id number]:03/24/2025 Progress Notes Patient: STANLEY SHANKS Provider: MARVIN Frankel :1960 A ge:65 Y S ex:Female Date:03/24/2025 Address:[facility] [address], [facility], [facility] [id number] Pcp:Giuseppe Chavez Subjective: * Chief Complaints: * 1 . 2 weeks. * HPI: H PI: Patient is here today for P t here for f/u on arthritis. Pt is not fasting. Pt has no other concerns today. K nee/Giordano: right knee locks up 1-2 times a day which is improved from 2 weeks ago. She had her bone density scan completed. c/o knee pain. c/o swelling. c/o sensation of knee giving out c ontinues to give away a couple times daily. Denies : Fall. D enies : tingling/ numbness. * ROS: D ERMATOLOGY: no R zina. n o H dav. G ASTROENTEROLOGY: no N ausea. n o V omiting. n o D iarrhea.? M USCULOSKELETAL: Joint pain y es. U ROLOGY: no D ifficulty urinating. n o B lood in urine. * Medical History: H ypertension, MVP with Mild Regurgitation, Bicuspid Aortic Valve, Echo 10/2005, DPT, 03/28/2009, Head CT, Normal 06/07/2009, Eevated Sed Rate, 2008, Hypothyroidism, GERD, DDD/DJD of lumbar spine. * Surgical History: P artial Hysterectomy 1995, Cholecystectomy - Dr. Aaron 01/2025. * Hospitalization/Major Diagno stic Procedure: S lipped and Fell- [facility] ER 06/07/2009, Dehydration- [facility] 02/28/2010, Trigonitis, Urethral Dilatation, Dr. Russell 03/01/2011, Chest Pain- [facility] 09/18/2013, High B/P- [facility] 01/07/2021, Nausea, Vomiting, and Diarrhea - [facility] 02/07/2024, [facility] ER - Nausea, Vomiting and [...] with food Orally Once a day , Taking Meloxicam 15 MG Tablet 1 tablet Orally daily , Taking Debrox 6.5 % Solution 5 drops into affected ear Otic Twice a day , Taking Allopurinol 100 MG Tablet 1 tablet Orally Once a day , Discontinued Medrol 4 MG Tablet Therapy Pack as directed Orally , Medication List reviewed and reconciled with the patient * Allergies: P enicillins, Sulfa Antibiotics, Reglan. Objective: * Vitals: W t: 164.2, Temp: 97.8, BP: 126/72, HR: 60, Nurse: pe, Ht: 63, BMI:29.08. * Examination: G eneral Examination: General Appearance: N AD, appears healthy. H eart: R RR. L ungs: n ormal, clear to auscultation. A bdomen: n ormal, bowel sounds present. S kin: n ormal, no rash. P eripheral pulses: n ormal (2+) bilaterally. E xtremities: n o leg edema, tenderness on bilateral knees with palpation; somewhat better ROM OF THE RIGHT KNEE. Assessment: * Assessment: 1. A cute pain of right knee - M25.561 (Primary) 2 . B IA 29.0-29.9,adult - Z68.29 Plan: * Treatment: Notes: We discussed to continue the Meloxicam and she can have tylenol as needed for pain. 1 [id number] should be enough. We will send in a rx for Voltaren gel she is to massage this in for knees and it should help with the pain. presented PT and she is not interested?? * Procedure Codes: G 2211 Complex e/m visit add on, 1036F TOBACCO NON-USER, G8420 BMI<30 AND >=22 CALC & DOCU, G8783 BP SCR PRFRM RCMDD DEFIND SCR INTVL, G8752 MOST RECENT SYSTOLIC BP < 140MM HG, G8754 MOST RECENT DIASTOLIC BP < 90MM HG * Follow Up: 2 Weeks * Images: Billing Information: * Visit Code: 19653 Office Visit, Est Pt., Level 3. * Procedure Codes: G2211 Complex e/m visit add on. 1036F TOBACCO NON-USER. G8420 BMI<30 AND >=22 CALC & DOCU. G8783 BP SCR PRFRM RCMDD DEFIND SCR INTVL. G8752 MOST RECENT SYSTOLIC BP < 140MM HG. G8754 MOST RECENT DIASTOLIC BP < 90MM HG. * Electronic signature of Radha Carvalho APRN on 08/13/2025 at 02:27 PM EST Sign off status: Pending * Provider: MARVIN Frankel Date: 0 03/24/2025 Generated for Lobito lockhart/Iam/Kenrick on: 1 10/14/2024 02:27 PM EST History and Physical Notes * HPI (History of Present Illness) Category Sub-Category Detail Notes Category Not es Knee/Giordano Fall tingling/ numbness knee pain sensation of knee giving out continues t o give away a couple times daily swelling HPI Patient is here today for Pt her e for f/u on arthritis. Pt is not fasting. Pt has no other concerns today Examination Category Sub-Category Detail Notes Category Not es General Examination Heart: RRR Lungs: normal, clear to aus cultation Abdomen: normal, bowel sounds present Extremities: no leg edema, tender ness on bilateral knees with palpation; somewhat better ROM OF THE RIGHT KNEE General Appearance: NAD, appears healthy Skin: normal, no rash Peripheral pulses: normal (2+) bilatera lly
--- OUTSIDE RECORDS SUMMARY | 2025-05-13 08:45 | XMS_ITS ---
Author Organization [facility] Address [address] [facility] [address] [place] [phone] Care Team Providers Care Social Psychologist Name Role Phone Giuseppe Chavez Primary Care Provider Ellen Parker [phone] Allergies Allergen (clinical drug ingredient) Drug/Non Drug Allergy documented on EMR Reaction Allergy Type Onset Date Status metoclopramide Reglan Unknown Drug Allergy Ac tive Substance with penicillin structure and antibacterial mechanism of action (substance) Penicillins Unknown Drug Allergy Active Substance with sulfonamide structure and antibacterial mechanism of action (substance) Sulfa Antibiotics Unknown Drug Allergy Active REASON FOR VISIT Ear not Improving Medications Medication SIG (Take, Route, Frequency, Duration) Notes Start Date End Date Status methylPREDNISolone 4 MG as directed Orally 025 Active amLODIPine Besylate 5 MG 1 tablet Orally Once a day; Duration: 90 days Active Ofloxacin 0.3 % 5 drops into affecte d ear Otic Once a day; Duration: 7 days 04/29/2025 Active Cefuroxime Axetil 500 MG 1 tablet Orally every 12 hrs 05/13/2025 Active Rosuvastatin Calcium 20 MG 1 tablet Oral ly Once a day; Duration: 90 days Active Meloxicam 15 MG 1 tablet Orally anders y; Duration: 30 days 03/10/2025 Active Debrox 6.5 % 5 drops into affecte d ear Otic Twice a day; Duration: 30 days 03/10/2025 Active Estradiol 0.5 MG 1 tablet Orally Once a day; Duration: 90 days Active Allopurinol 100 MG 1 tablet Orally Once a day; Duration: 30 days 03/17/2025 Active Voltaren Arthritis Pain 1 % apply to kne e and shoulder Externally 3 times a day; Duration: 90 days 03/24/2025 Active Metoprolol Tartrate 100 MG TAKE 1 TABLET BY MOUTH TWICE A DAY Orally Twice a day; Duration: 60 days Active Potassium Chloride ER 20 MEQ 1 tablet wi th food Orally Once a day; Duration: 90 days 02/13/2025 Active Vitamin D3 50 MCG (2000 UT) 1 cap(s) ora lly twice a day Active Lisinopril-hydroCHLOROthiazi de 20-12.5 MG 1 tablet Orally Once a day; Duration: 90 days Active Hyoscyamine Sulfate 0.125 MG 1 tablet on the tongue and allow to dissolve as needed Orally every 4 hrs, prn 01/09/2025 Active Claritin 10 MG 1 tab(s) orally once a day; Duration: 90 days Active Aspirin 81 MG 1 TAB ONCE A DAY 01/06/2012 Active Levothyroxine Sodium 50 MCG 1 tab(s) ora lly once a day; Duration: 90 days Active Omeprazole 20 MG 1 cap(s) orally once a day; Duration: 90 days Active Flonase Allergy Relief 50 MCG/ACT 1 spray in each nostril Nasally Twice a day; Duration: 30 days 05/13/2025 Active Vital Signs Weight 162.8 lbs 05/13/2025 Blood pressure systolic 136 mm Hg 05/13/20 25 Blood pressure diastolic 70 mm Hg 025 Heart Rate 57 /min 05/13/2025 Height 63 in 05/13/2025 BMI 28.84 kg/m2 05/13/2025 Encounters Encounter Location Date Provider Diagnosis [facility] [address] [place] [phone] 05/13/2025 Giuseppe Chavez Acute sinusitis J01. 90 and Eustachian tube dysfunction H69.80 Assessments Encounter Date Diagnosis (ICD Code) Assessment Notes Treatment Notes Treatment Clinical Notes Section Notes 05/13/2025 Acute sinusitis (ICD-10 - J01.90) 05/13/2025 Eustachian tube dysfunction (ICD-10 - H69.80) Plan Of Treatment Medication Medication Name Sig Start Date Stop Date Notes methylPREDNISolone 4 MG as directed Orally 05/13/2025 Cefuroxime Axetil 500 MG 1 tablet Orally every 12 hrs 05/13/2025 Flonase Allergy Relief 50 MCG/ACT 1 spra y in each nostril Nasally Twice a day; Duration: 30 days 05/13/2025 Next Appt Details Follow Up: prn, Reason: Progress Notes * MACY STEINER:1960 (65 yo F)Acc No.[id number]:05/13/2025 Progress Notes Patient: STANLEY SHANKS Provider: Giuseppe Chavez M.D. :1960 A ge:65 Y S ex:Female Date:05/13/2025 Address:[facility] [address], [place] , [id number] Subjective: * Chief Complaints: * 1 . Ear not Improving. * HPI: E NT/respiratory: 65 year old female presents with c/o ear pain P t states she was seen on 04/28 for pain in right ear/ Pt states she was told she had fluid behind right ear and left ear was cleaned. Pt states she was prescribed ear drops however pain has not had any relief and pain is about the same. Pt states she feels a lot of sinus pressure on the right side of her face near eyes and nose. Denies : sore throat. D enies : cough. D enies : Fever.? * ROS: D ERMATOLOGY: no R zina. [...] Diagno stic Procedure: S lipped and Fell- [facility] ER 06/07/2009, Dehydration- [facility] 02/28/2010, Trigonitis, Urethral Dilatation, Dr. Russell 03/01/2011, Chest Pain- [facility] 09/18/2013, High B/P- [facility] 01/07/2021, Nausea, Vomiting, and Diarrhea - [facility] 02/07/2024, [facility] - Nausea, Vomiting and Diarrhea [...] Orally every 4 hrs, prn , Taking Metoprolol Tartrate 100 MG Tablet [...] tablet Orally Once a day , Taking Voltaren Arthritis Pain 1 % Gel apply to knee and shoulder Externally 3 times a day , Taking Estradiol 0.5 MG Tablet 1 tablet Orally Once a day , Taking amLODIPine Besylate 5 MG Tablet 1 tablet Orally Once a day , Taking Rosuvastatin Calcium 20 MG Tablet 1 tablet Orally Once a day , Taking Ofloxacin 0.3 % Solution 5 drops into affected ear Otic Once a day , Medication List reviewed and reconciled with the patient * Allergies: P enicillins, Sulfa Antibiotics, Reglan. Objective: * Vitals: W t: 162.8, Temp: 97.8, BP: 136/70, HR: 57, Nurse: SF, Ht: 63, BMI:28.84. * Examination: E NT/Respiratory: General Appearance: N AD. E ars: S welling in her right ear canal has resolved. There is persistent fluid.. N ose : c ongested. S inuses : t juliana right maxillary sinus. H eart : R RR, normal S1 S2, no murmurs. L ungs: c lear to auscultation bilaterally. Assessment: * Assessment: 1. A cute sinusitis - J01.90 (Primary) 2 . E ustachian tube dysfunction - H69.80 Plan: * Treatment: 2. E ustachian tube dysfunction Start methylPREDNISolone Tablet Therapy Pack, 4 MG, as directed, Orally, 1; S tart Flonase Allergy Relief Suspension, 50 MCG/ACT, 1 spray in each nostril, Nasally, Twice a day, 30 days, 1. ? * Procedure Codes: G 2211 Complex e/m visit add on * Follow Up: p rn * Images: Billing Information: * Visit Code: 45991 Office Visit, Est Pt., Level 3. * Procedure Codes: G2211 Complex e/m visit add on. * Electronic signature of Giuseppe Chavez MD on 08/13/2025 at 02:29 PM EST Sign off status: Pending * Provider: Giuseppe Chavez M.D. Date: 0 05/13/2025 Generated for Lobito lockhart/Iam/eTransmitting on: 1 10/14/2024 02:29 PM EST History and Physical Notes * HPI (History of Present Illness) Category Sub-Category Detail Notes Category Not es ENT/respiratory sore throat ear pain Pt states she was se en on 04/28 for pain in right ear/ Pt states she was told she had fluid behind right ear and left ear was cleaned. Pt states she was prescribed ear drops however pain has not had any relief and pain is about the same. Pt states she feels a lot of sinus pressure on the right side of her face near eyes and nose cough Fever Examination Category Sub-Category Detail Notes Category Not es ENT/Respiratory Sinuses : tender right maxillary si nus Ears: Swelling in her righ t ear canal has resolved. There is persistent fluid. Heart : RRR, normal S1 S2, n o murmurs Lungs: clear to auscultatio n bilaterally General Appearance: NAD Nose : congested
--- OUTSIDE RECORDS SUMMARY | 2025-05-26 05:15 | XMS_ITS ---
[facility] Organization [facility] Address [address] [facility] [address] [place] [id number] Care Team Providers Care Aircraft Time Clerk Name Role Phone Giuseppe Chavez Primary Care Provider Ellen Parker Unavailable [phone] Ca Carvalho Unavailable [phone] Allergies Allergen (clinical drug ingredient) Drug/Non Drug Allergy documented on EMR Reaction Allergy Type Onset Date Status metoclopramide Reglan Unknown Drug Allergy Ac tive Substance with penicillin structure and antibacterial mechanism of action (substance) Penicillins Unknown Drug Allergy Active Substance with sulfonamide structure and antibacterial mechanism of action (substance) Sulfa Antibiotics Unknown Drug Allergy Active Results Component Value Reference Range Notes CBC Fingerstick (in house) Reviewed date:05/26/2025 08:10:55 PM Interpretation: Performing Lab: Notes/Report: wbc 10.4 3.5 - 10 lym 41.0% 15 - 50 mid 5.8% 2 - 15 gran 53.2% 35 - 80 rbc 4.08 3.5 - 5.5 hgb 11.8 11.5 - 16.5 hct 35.3 35 - 55 mcv 86.5 75 - 100 mch 28.9 25 - 35 mchc 33.4 31 - 38 plat 197 100 - 400 REASON FOR VISIT sinus pressure Medications Medication SIG (Take, Route, Frequency, Duration) Notes Start Date End Date Status Medrol 4 MG as directed on packa ge orally daily; Duration: 6 days 05/26/2025 Active Azithromycin 250 MG as directed Orally Active Claritin 10 MG 1 tab(s) orally once a day Active Ofloxacin 0.3 % 10 drops into affect ed ear Otic Once a day; Duration: 7 days 05/26/2025 Active Flonase Allergy Relief 50 MCG/ACT 1 spray in each nostril Nasally Twice a day; Duration: 30 days 05/13/2025 Active amLODIPine Besylate 5 MG 1 tablet Orally Once a day; Duration: 90 days Active Rosuvastatin Calcium 20 MG 1 tablet Oral ly Once a day; Duration: 90 days Active Meloxicam 15 MG 1 tablet Orally anders y; Duration: 30 days 03/10/2025 Active Debrox 6.5 % 5 drops into affecte d ear Otic Twice a day; Duration: 30 days 03/10/2025 Active Allopurinol 100 MG 1 tablet Orally Once a day; Duration: 30 days 03/17/2025 Active Voltaren Arthritis Pain 1 % apply to kne e and shoulder Externally 3 times a day; Duration: 90 days 03/24/2025 Active Estradiol 0.5 MG 1 tablet Orally Once a day; Duration: 90 days Active Lisinopril-hydroCHLOROthiazi de 20-12.5 MG 1 tablet Orally Once a day; Duration: 90 days Active Hyoscyamine Sulfate 0.125 MG 1 tablet on the tongue and allow to dissolve as needed Orally every 4 hrs, prn 01/09/2025 Active Metoprolol Tartrate 100 MG TAKE 1 TABLET BY MOUTH TWICE A DAY Orally Twice a day; Duration: 60 days Active Potassium Chloride ER 20 MEQ 1 tablet wi th food Orally Once a day; Duration: 90 days 02/13/2025 Active Vitamin D3 50 MCG (2000 UT) 1 cap(s) ora lly twice a day Active Levothyroxine Sodium 50 MCG 1 tab(s) ora lly once a day; Duration: 90 days Active Omeprazole 20 MG 1 cap(s) orally once a day; Duration: 90 days Active Aspirin 81 MG 1 TAB ONCE A DAY 01/06/2012 Active Vital Signs Weight 163 lbs 05/26/2025 Blood pressure systolic 140 mm Hg 05/26/20 25 Blood pressure diastolic 80 mm Hg 025 Heart Rate 60 /min 05/26/2025 Height 63 in 05/26/2025 BMI 28.87 kg/m2 05/26/2025 Encounters Encounter Location Date Provider Diagnosis [facility] [address] [place] [id number] 05/26/2025 Ca Carvalho Acute otitis externa of right ear H60.91 and BMI 28.0-28.9,adult Z68.28 Assessments Encounter Date Diagnosis (ICD Code) Assessment Notes Treatment Notes Treatment Clinical Notes Section Notes 05/26/2025 Acute otitis externa of right ear (ICD-10 - H60.91) to keep ear dry; dry heat to area prn pain 05/26/2025 BMI 28.0-28.9,adult (ICD-10 - Z68.28) Plan Of Treatment Medication Medication Name Sig Start Date Stop Date Notes Medrol 4 MG as directed on packa ge orally daily; Duration: 6 days 05/26/2025 Azithromycin 250 MG as directed Orally Claritin 10 MG 1 tab(s) orally once a day Ofloxacin 0.3 % 10 drops into affect ed ear Otic Once a day; Duration: 7 days 05/26/2025 Treatment Notes Assessment Notes Acute otitis externa of right ear to samara p ear dry; dry heat to area prn pain Next Appt Details Follow Up: 1 Week, Reason: Progress Notes * ALIDA STEINERB:1960 (65 yo F)Acc No.[id number]:05/26/2025 Progress Notes Patient: EUFEMIA SHANKSA Provider: MARVIN Frankel :1960 A ge:65 Y S ex:Female Date:05/26/2025 Address:[facility] [address], [address] Pcp:Giuseppe Chavez Subjective: * Chief Complaints: * 1 . Sinus pressure. * HPI: E NT/respiratory: Pt states she was here on 05/13 for rt ear pain and pain has not improved. 65 year old female presents with c/o nasal congestion. c/o ear pain r ight side. c/o facial pain/pressure r ight side. c/o headache b ilateral, pressure like sensation. c/o dizziness. Denies : sore throat. D enies : cough. D enies : Fever.?Denies : rhinorrhea. D enies : Chest Pain. D enies : Short of Breath. D enies : chest congestion. D enies : smoking. D enies : body aches. * ROS: G ASTROENTEROLOGY: Positive for e ating less and drinking fluids weel. n o?Nausea. n o V omiting. D iarrhea y es, b amrit. * Medical History: H ypertension, MVP with Mild Regurgitation, Bicuspid Aortic Valve, Echo 10/2005, DPT, 03/28/2009, Head CT, Normal 06/07/2009, Eevated Sed Rate, 2008, Hypothyroidism, GERD, DDD/DJD of lumbar spine. * Surgical History: P artial Hysterectomy 1995, Cholecystectomy - Dr. Aaron 01/2025. * Hospitalization/Major Diagno stic Procedure: S lipped and Fell- [facility] 06/07/2009, Dehydration- [facility] 02/28/2010, Trigonitis, Urethral Dilatation, Dr. Russell 03/01/2011, Chest Pain- [facility] 09/18/2013, High B/P- [facility] 01/07/2021, Nausea, Vomiting, and Diarrhea - [facility] 02/07/2024, [facility] - Nausea, Vomiting and [...] Sexually active: yes. * Medications: T aking Azithromycin 250 MG Tablet as directed Orally , Taking Levothyroxine Sodium 50 MCG Tablet 1 tab(s) orally once a day , Taking Omeprazole 20 MG Capsule Delayed Release 1 cap(s) orally once a day , Taking Claritin 10 MG Tablet 1 tab(s) orally once a day , Taking Aspirin 81 MG ENTERIC COATED TABLET 1 TAB ONCE A DAY , Taking Vitamin D3 50 MCG (1999 UT) Capsule 1 cap(s) orally twice a [...] tablet Orally Once a day , Taking Flonase Allergy Relief 50 MCG/ACT Suspension 1 spray in each nostril Nasally Twice a day , Discontinued Ofloxacin 0.3 % Solution 5 drops into affected ear Otic Once a day , Discontinued Cefuroxime Axetil 500 MG Tablet 1 tablet Orally every 12 hrs , Discontinued methylPREDNISolone 4 MG Tablet Therapy Pack as directed Orally , Medication List reviewed and reconciled with the patient * Allergies: P enicillins, Sulfa Antibiotics, Reglan. Objective: * Vitals: W t: 163, Temp: 97.7, BP: 140/80, HR: 60, Nurse: pe, Ht: 63, BMI:28.87. * Examination: G eneral Examination: General Appearance: N AD, alert, pleasant, well nourished and hydrated. H EENT: s clera and conjunctiva clear, PERRLA, TM's normal, translucent; right ear canal with edema. O ral cavity: m ucosa moist and WNL, no erythema. N jordy: t juliana right LAD on the right. H eart: R RR. L ungs: C TAB A&P. N eurologic Exam: a lert and oriented. Assessment: * Assessment: 1. A cute otitis externa of right ear - H60.91 (Primary) 2 . B PR 28.0-28.9,adult - Z68.28 Plan: * Treatment: * Labs: * L ab: CBC Fingerstick (in house) (Collection Date & Time - 05/26/2025) Value Reference Range w bc 10.4 3.5 - 10 * l ym 41.0% 15 - 50 * m id 5.8% 2 - 15 * g ran 53.2% 35 - 80 * r bc 4.08 3.5 - 5.5 * h gb 11.8 11.5 - 16.5 * h ct 35.3 35 - 55 * m cv 86.5 75 - 100 * m ch 28.9 25 - 35 * m chc 33.4 31 - 38 * p lat 197 100 - 400 * Justina Camarillo 05/26/2025 1 1:44:38 AM EDT > Provider reviewed results while patient in office.Ca Carvalho 05/26/2025 08:10:47 PM EDT > * Procedure Codes: G 2211 Complex e/[place], [address] CAPILLARY BLOOD DRAW, 38514 CBC WITH AUTO DIFF, 1036F TOBACCO NON-USER, G8420 BMI<30 AND >=22 CALC & DOCU, 3077F SYST BP = 140 MM HG6 IT, 3079F DIAST BP 80-89 MM HG * Follow Up: 1 Week * Images: Billing Information: * Visit Code: 75423 Office Visit, Est Pt., Level 3. * Procedure Codes: G2211 Complex e/[place]. [address] CAPILLARY BLOOD DRAW. 55310 CBC WITH AUTO DIFF. 1036F TOBACCO NON-USER. G8420 BMI<30 AND >=22 CALC & DOCU. 3077F SYST BP = 140 MM HG6 IT. 3079F DIAST BP 80-89 MM HG. * Electronic signature of Radha Carvahlo APRN on 08/13/2025 at 02:28 PM EST Sign off status: Pending * Provider: MARVIN Frankel Date: 0 05/26/2025 Generated for Lobito lockhart/Iam/Xochitlitting on: 1 10/14/2024 02:28 PM EST History and Physical Notes * HPI (History of Present Illness) Category Sub-Category Detail Notes Category Not es ENT/respiratory sore throat facial pain/pressure right side ear pain right side Short of Breath Chest Pain cough Fever headache bilateral, pressure like sensation chest congestion rhinorrhea nasal congestion smoking dizziness body aches Examination Category Sub-Category Detail Notes Category Not es General Examination HEENT: sclera and c onjunctiva clear, PERRLA, TM's normal, translucent; right ear canal with edema Heart: RRR Lungs: CTAB A&P General Appearance: NAD, alert, pleasant , well nourished and hydrated Neurologic Exam: alert and oriented Neck: tender right LAD on the right Oral cavity: mucosa moist and WNL , no erythema
--- OUTSIDE RECORDS SUMMARY | 2025-06-02 04:45 | XMS_ITS ---
[facility] Address [address] [facility] [address] [place] [id number] Care Team Providers Care Call Out Clerk Name Role Phone Giuseppe Chavez Primary Care Provider Ellen Parker Unavailable [phone] Ca Carvalho Unavailable [phone] Allergies Allergen (clinical drug ingredient) Drug/Non Drug Allergy documented on EMR Reaction Allergy Type Onset Date Status metoclopramide Reglan Unknown Drug Allergy Ac tive Substance with penicillin structure and antibacterial mechanism of action (substance) Penicillins Unknown Drug Allergy Active Substance with sulfonamide structure and antibacterial mechanism of action (substance) Sulfa Antibiotics Unknown Drug Allergy Active REASON FOR VISIT 1 week Medications Medication SIG (Take, Route, Frequency, Duration) Notes Start Date End Date Status Ofloxacin 0.3 % 10 drops into affect ed ear Otic Once a day Active Claritin 10 MG 1 tab(s) orally once a day Active Meloxicam 15 MG 1 tablet Orally anders y; Duration: 90 days 03/10/2025 Active Omeprazole 20 MG 1 cap(s) orally once a day; Duration: 90 days Active Lisinopril-hydroCHLOROthia zide 20-12.5 MG 1 tablet Orally Once a day; Duration: 90 days Active Levothyroxine Sodium 50 MCG 1 tab(s) orally once a day; Duration: 90 days Active Debrox 6.5 % 5 drops into affecte d ear Otic Twice a day; Duration: 30 days 03/10/2025 Not-Taking Estradiol 0.5 MG 1 tablet Orally Once a day; Duration: 90 days Active amLODIPine Besylate 5 MG 1 tablet Orally Once a day; Duration: 90 days Active Rosuvastatin Calcium 20 MG 1 tablet Oral ly Once a day; Duration: 90 days Active Flonase Allergy Relief 50 MCG/ACT 1 spray in each nostril Nasally Twice a day; Duration: 30 days 05/13/2025 Active Potassium Chloride ER 20 MEQ 1 tablet with food Orally Once a day; Duration: 90 days 02/13/2025 Active Metoprolol Tartrate 100 MG TAKE 1 TABLET BY MOUTH TWICE A DAY Orally Twice a day; Duration: 60 days Active Voltaren Arthritis Pain 1 % apply to knee and shoulder Externally 3 times a day; Duration: 90 days 03/24/2025 Active Aspirin 81 MG 1 TAB ONCE A DAY 01/06/2012 Active Vitamin D3 50 MCG (1999 UT) 1 cap(s) orally twice a day Active Allopurinol 100 MG 1 tablet Orally Once a day Active Problems Problem Type SNOMED Code ICD Code Onset Dates Problem Status W/U Status Risk Notes Problem Gastroesophageal reflux disease (disorder) (641169575) Chronic GERD (K21.9) Active confirmed Vital Signs Weight 162.8 lbs 06/02/2025 Blood pressure systolic 132 mm Hg 06/02/20 25 Blood pressure diastolic 70 mm Hg 025 Heart Rate 52 /min 06/02/2025 Height 63 in 06/02/2025 BMI 28.84 kg/m2 06/02/2025 Encounters Encounter Location Date Provider [facility] [address] [phone] 06/02/2025 Ca Carvalho HTN (hypertension) I 10 ; Hypothyroidism (acquired) E03.9 ; Acute otitis externa of right ear H60.91 ; TMJ (sprain of temporomandibular joint), initial encounter S03.40XA ; Chronic GERD K21.9 and BMI 28.0-28.9,adult Z68.28 Assessments Encounter Date Diagnosis (ICD Code) Assessment Notes Treatment Notes Treatment Clinical Notes Section Notes 06/02/2025 HTN (hypertension) (ICD-10 - I10) 06/02/2025 Hypothyroidism (acquired) (ICD-10 - E03.9) 06/02/2025 Acute otitis externa of right ear (ICD-10 - H60.91) to keep ear dry; dry heat to area prn pain 06/02/2025 TMJ (sprain of temporomandibular joint), initial encounter (ICD-10 - S03.40XA) avoid chewing gum or hard foods 06/02/2025 Chronic GERD (ICD-10 - K21.9) 06/02/2025 BMI 28.0-28.9,adult (ICD-10 - Z68.28) Plan Of Treatment Medication Medication Name Sig Start Date Stop Date Notes Ofloxacin 0.3 % 10 drops into affect ed ear Otic Once a day Claritin 10 MG 1 tab(s) orally once a day Meloxicam 15 MG 1 tablet Orally anders y; Duration: 90 days 03/10/2025 Omeprazole 20 MG 1 cap(s) orally once a day; Duration: 90 days Lisinopril-hydroCHLOROthiazi de 20-12.5 MG 1 tablet Orally Once a day; Duration: 90 days Levothyroxine Sodium 50 MCG 1 tab(s) ora lly once a day; Duration: 90 days Treatment Notes Assessment Notes Acute otitis externa of right ear to samara p ear dry; dry heat to area prn pain TMJ (sprain of temporomandib ular joint), initial encounter avoid chewing gum or hard foods Next Appt Details Follow Up: prn and 3 months, Reason: Progress Notes * ALIDA STEINERB:1960 (65 yo F)Acc No.[id number]:06/02/2025 Progress Notes Patient: STANLEY SHANKS Provider: MARVIN Frankel :1960 A ge:65 Y S ex:Female Date:06/02/2025 Address:[facility] [address], [place] , [id number] Pcp:Giuseppe Chavez Subjective: * Chief Complaints: * 1 . 1 week. * HPI: E NT/respiratory: 65 year old female presents with c/o nasal congestion s ome. c/o ear pain P t here for 1 week f/u on her ears. left ear is OK; right ear still huts in AM and feels funny. Denies : rhinorrhea. D enies : post nasal drainage. D enies : headache. H PI: Patient is here today for r efills of maintenance medication(s). * ROS: C ARDIOLOGY: no C hest pain. n o P alpitations. n o L eg edema. n o S hortness of breath. G ASTROENTEROLOGY: no N ausea. n o H eartburn. n o D iarrhea.?no C onstipation. * Medical History: H ypertension, MVP with Mild Regurgitation, Bicuspid Aortic Valve, Echo 10/2005, DPT, 03/28/2009, Head CT, Normal 06/07/2009, Eevated Sed Rate, 2008, Hypothyroidism, GERD, DDD/DJD of lumbar spine. * Surgical History: P artial Hysterectomy 1995, Cholecystectomy - Dr. Aaron 01/2025. * Hospitalization/Major Diagno stic Procedure: S lipped and Fell- [facility] 06/07/2009, Dehydration- [facility] 02/28/2010, Trigonitis, Urethral Dilatation, Dr. Russell 03/01/2011, Chest Pain- [facility] 09/18/2013, High B/P- [facility] 01/07/2021, Nausea, Vomiting, and Diarrhea - [facility] 02/07/2024, [facility] - Nausea, Vomiting and [...] Sexually active: yes. * Medications: T aking Allopurinol 100 MG Tablet 1 tablet Orally Once a day , Taking Levothyroxine Sodium 50 MCG Tablet 1 tab(s) orally once a day , Taking Omeprazole 20 MG Capsule Delayed Release 1 cap(s) orally once a day , Taking Aspirin [...] Tablet 1 tablet Orally daily , Taking Voltaren Arthritis Pain 1 % [...] each nostril Nasally Twice a day , Taking Ofloxacin 0.3 % Solution 10 drops into affected ear Otic Once a day , Taking Claritin 10 MG Tablet 1 tab(s) orally once a day , Not-Taking Debrox 6.5 % Solution 5 drops into affected ear Otic Twice a day , Discontinued Hyoscyamine Sulfate 0.125 MG Tablet Disintegrating 1 tablet on the tongue and allow to dissolve as needed Orally every 4 hrs, prn , Discontinued Allopurinol 100 MG Tablet 1 tablet Orally Once a day , Discontinued Azithromycin 250 MG Tablet as directed Orally , Discontinued Medrol 4 MG Tablet Therapy Pack as directed on package orally daily , Medication List reviewed and reconciled with the patient * Allergies: P enicillins, Sulfa Antibiotics, Reglan. Objective: * Vitals: W t: 162.8, Temp: 97.6, BP: 132/70, HR: 52, Nurse: jeny, Ht: 63, BMI:28.84. * Examination: G eneral Examination: General Appearance: a lert, NAD, appears healthy, pleasant, well nourished and hydrated. H EENT: r ight ear canal much improved with less edema; bilateral TM appear normal, sclera and conjunctiva clear PERRLA. O ral cavity: m ucosa moist and WNL, no erythema. N jordy: s upple, no lymphadenopathy. H eart: R RR. L ungs: C TAB A&P. N eurologic Exam: a lert and oriented. r ight TMJ tender and discomfort with opening/closing mouth. Assessment: * Assessment: 1. H TN (hypertension) - I10 (Primary) 2 . A cute otitis externa of right ear - H60.91 (Primary) 3 . H ypothyroidism (acquired) - E03.9 4 .?TMJ (sprain of temporomandibular joint), initial encounter - S03.40XA 5 . C hronic GERD - K21.9 6 . B SD 28.0-28.9,adult - Z68.28 Plan: * Treatment: 2. A cute otitis externa of right ear Finish Ofloxacin Solution, 0.3 %, 10 drops into affected ear, Otic, Once a day; C ontinue Claritin Tablet, 10 MG, 1 tab(s), orally, once a day. Notes: to keep ear dry; dry heat to area prn pain 3. H ypothyroidism (acquired) Refill Levothyroxine Sodium Tablet, 50 MCG, 1 tab(s), orally, once a day, 90 days, 90 Tablet, Refills 1. 4. T MJ (sprain of temporomandibular joint), initial encounter Refill Meloxicam Tablet, 15 MG, 1 tablet, Orally, daily, 90 days, 90 Tablet, Refills 1. Notes: avoid chewing gum or hard foods 5. C hronic GERD Refill Omeprazole Capsule Delayed Release, 20 MG, 1 cap(s), orally, once a day, 90 days, 90 Capsule, Refills 1. * Procedure Codes: G 2211 Complex e/m visit add on, 1036F TOBACCO NON-USER, G8420 BMI<30 AND >=22 CALC & DOCU, G8950 PREHTN/HTN BP DOC INDCD F/U DOC, G8752 MOST RECENT SYSTOLIC BP < 140MM HG, G8754 MOST RECENT DIASTOLIC BP < 90MM HG, 3075F SYST BP GE 130 - 139MM HG, 3078F DIAST BP < 80 MM HG * Follow Up: p rn and 3 months * Images: Billing Information: * Visit Code: 72117 Office Visit, Est Pt., Level 3. * Procedure Codes: G2211 Complex e/m visit add on. 1036F TOBACCO NON-USER. G8420 BMI<30 AND >=22 CALC & DOCU. G8950 PREHTN/HTN BP DOC INDCD F/U DOC. G8752 MOST RECENT SYSTOLIC BP < 140MM HG. G8754 MOST RECENT DIASTOLIC BP < 90MM HG. 3075F SYST BP GE 130 - 139MM HG. 3078F DIAST BP < 80 MM HG. * Electronic signature of Radha Kingond , SALES RECRUITING COORDINATOR on 08/13/2025 at 02:27 PM EST Sign off status: Pending * Provider: MARVIN Frankel Date: 0 06/02/2025 Generated for Lobito lockhart/Iam/Kenrick on: 1 10/14/2024 02:27 PM EST History and Physical Notes * HPI (History of Present Illness) Category Sub-Category Detail Notes Category Not es ENT/respiratory ear pain Pt here for 1 we ek f/u on her ears. left ear is OK; right ear still huts in AM and feels funny post nasal drainage headache rhinorrhea nasal congestion some HPI Patient is here today for refills of main tenance medication(s) Examination Category Sub-Category Detail Notes Category Not es General Examination HEENT: right ear ca nal much improved with less edema; bilateral TM appear normal, sclera and conjunctiva clear PERRLA right TMJ tender and discomfort with opening/closing mouth Heart: RRR Lungs: CTAB A&P General Appearance: alert, NAD, appears healthy, pleasant, well nourished and hydrated Neurologic Exam: alert and oriented Neck: supple, no lymphaden opathy Oral cavity: mucosa moist and WNL , no erythema
--- OUTSIDE RECORDS SUMMARY | 2025-06-17 10:08 | XMS_ITS ---
Author Organization [facility] Address [address] [facility] [address] [facility] [address] [place] [phone] Care Team Providers Care Health Care Coach Name Role Phone Giuseppe Chavez Primary Care Provider [phone] Ellen Parker [phone] REASON FOR VISIT due [facility] 07/22/25 Encounters Encounter Location Date Provider Diagnosis [facility] [facility] [address] [place] [phone] 06/17/2025 Giuseppe Chavez Encounter for screening mammogram for breast cancer Z12.31 Assessments Encounter Date Diagnosis (ICD Code) Assessment Notes Treatment Notes Treatment Clinical Notes Section Notes 06/17/2025 Encounter for screening mammogram for breast cancer (ICD-10 - Z12.31) Plan Of Treatment No Information Progress Notes * ALIDA STEINERB:1960 (65 yo F)Acc No.[id number]:06/17/2025 Patient: STANLEY SHANKS :1960 A ge:65 Y S ex:Female Address:[address], [place] [address] Subjective: * Chief Complaints: * D ue bessie 07/22/25 * Medical History: * Surgical History: * Hospitalization/Major Diagno stic Procedure: * Medications: Objective: * Vitals: * Physical Examination: Assessment: * Assessment: 1. E ncounter for screening mammogram for breast cancer - Z12.31 (Primary) Plan: * Treatment: * Procedure Codes: * true * Date: Generated for Lobito lockhart/Iam/Jorgesmitting on: 1 10/14/2024 02:28 PM EST
--- NOTE | 2025-08-13 14:27 | MM_ITS ---
PROCEDURE INFORMATION: Exam: MG Bilateral Screening 3D Mammography Exam date and time: 08/13/2025 2:28 PM Age: 65 years old Clinical indication: Screening examination TECHNIQUE: Imaging protocol: Bilateral Screening tomosynthesis and 2D mammography including computer-aided detection (CAD) when performed. COMPARISON: MG MM DIG SCREENING MAMM BI W/CAD 07/19/2023 10:19 AM FINDINGS: MAMMOGRAPHY: Breast composition: There are scattered areas of fibroglandular density. Mass: No new or suspicious masses Architectural distortion: None. Calcifications: No suspicious calcifications. Asymmetric density: None. Skin thickening: None. Axillary adenopathy: None. IMPRESSION: No mammographic evidence of malignancy. Annual screening is recommended unless otherwise clinically indicated. ASSESSMENT: BI-RADS Category 1: Negative.
--- OUTSIDE RECORDS SUMMARY | 2025-08-13 14:28 | XMS_ITS | Clinical Summary ---
Author Organization [facility] Address [address] [phone] Care Team Providers Care Cripple Cutter Name Role Phone Andrea Parker MD Primary Care Provider [phone] Family History Medical History Relation Name Comments [...] of Treatment Not on file Care Teams Cripple Cutter Relationship Specialty Start Date End Date Andrea Parker MD [facility] [place] [address] PCP - General 01/22/21
--- OUTSIDE RECORDS SUMMARY | 2025-08-13 14:28 | XMS_ITS | Patient Health Record ---
[facility] Organization [facility] Address [address] [facility] [address] [place] [id number] Care Team Providers Care Cryptologic Technician Operator/Analyst Name Role Phone Giuseppe Chavez Primary Care Provider Ellen Parker Unavailable [phone] Ca Carvalho Unavailable [phone] Gwen Mendieta Unavailable [phone] Allergies Allergen (clinical drug ingredient) Drug/Non Drug [...] 09:55:29 AM Interpretation:Abnormal Performing Lab: Notes/Report: Abnormal P-Lipase Reviewed date:01/10/2025 02:25:55 PM Interpretation: Performing Lab: Notes/Report: CLIA: [id number] Abelino Sales MD, Senior Information Systems Architect [address] [place] [address] , [place] [address] Test performed by [facility] Lipase 30.2 13.0-60.0 u/L P-Culture, Urine Reviewed date:01/16/2025 08:55:30 AM Interpretation: Performing Lab: Notes/Report: Test performed by [facility] [address] [place] [address] Guillermina George, [place] [address] Abelino Sales MD, Senior Information Systems Architect CLIA: [id number] Specimen Source Urine - Void Culture, Urine See Below Final Report : No growth P-Comprehensive Metabolic Pa lee (CMP) Reviewed date:01/10/2025 02:26:09 PM Interpretation: Performing Lab: Notes/Report: Test performed by [facility] [address] [place] [address] , [address], [place] [address] Abelino Sales MD, Senior Information Systems Architect CLIA: [id number] Sodium 129 135-145 mmol/L Potassium 3.8 3.5-5.3 mmol/L Chloride 88 97-108 mmol/L CO2 26 22-32 mmol/L Glucose 105 65-99 mg/dL BUN 9 8-23 mg/dL Creatinine 0.95 0.50-1.00 mg/dL Calcium 9.0 8.6-10.4 mg/dL eGFR by Creatinine 66 >59 mL/min/1.73m2 Protein 7.2 6.0-8.3 g/dL Albumin 4.4 3.5-5.3 g/dL Alkaline Phosphatase 92 35-121 IU/L ALT (SGPT) 9 <5-47 IU/L AST (SGOT) 12 <5-40 IU/L Bilirubin, Total 0.3 <0.2-1.2 mg/dL A/G Ratio 1.6 1.1-2.5 P-Amylase Reviewed date:01/10/2025 02:25:47 PM Interpretation: Performing Lab: Notes/Report: Test performed by [facility] [address] [place] [address] , [address], [place] [address] Abelino Sales MD, Senior Information Systems Architect CLIA: [id number] Amylase 43 28-100 U/L CBC Fingerstick (in house) Reviewed date:01/10/2025 08:23:56 AM Interpretation: Performing Lab: Notes/Report: wbc 12.7 3.5 - 10 lym 34.2 15 - 50 mid 5.9 2 - 15 gran 59.9 35 - 80 rbc 4.28 3.5 - 5.5 hgb 12.7 11.5 - 16.5 hct 38.6 35 - 55 mcv 90.1 75 - 100 mch 29.7 25 - 35 mchc 33.0 31 - 38 plat 219 100 - 400 Urinalysis - Inhouse Reviewed date:01/10/2025 08:23:56 AM Interpretation: Performing Lab: Notes/Report: Color/Clarity yellow Leuk neg Nitrite neg Urobili 3.2 Protein neg pH 7.0 Blood trace-lysed Sp. Gr. 1.015 Ketone neg Bili neg Gluc neg P-TSH Reviewed date:12/16/2024 09:31:56 AM Interpretation:2.52 Performing Lab: Notes/Report: CLIA: [id number] Abelino Sales MD, Senior Information Systems Architect [address] [place] [address] , [place] [address] Test performed by [facility] TSH 2.52 0.43-5.25 mU/L P-Lipid Panel Reviewed date:12/16/2024 09:31:22 AM Interpretation:LDL 47; TG 220; HDL 68 Performing Lab: Notes/Report: Test performed by [facility] [address] [place] [address] , [place] [address] Abelino Sales MD, Senior Information Systems Architect CLIA: [id number] Cholesterol 159 <200 mg/dL Triglycerides 220 <150 mg/dL HDL Cholesterol 68 >39 mg/dL Cholesterol / HDL Ratio 2.34 0.00-4.44 Ratio Non-HDL Cholesterol 91 <130 mg/dL LDL Cholesterol (Calculation) 47 <130 mg/dL LDL Cholesterol Levels* Less than 100 mg/dL Optimal 100 to 129 mg/dL Near Optimal/ Above Optimal 130 to 159 mg/dL Borderline High 160 to 189 mg/dL High 190 mg/dL and above Very High * Categories as recommended by the 2004 ATPIII guidelines LDL/HDL Ratio 0.7 <3.3 Ratio ____ LDL Cholesterol Patient History ____ Test Date: 02/12/2024 LDL Results: 36 Units: mg/dL % Change: - ---- Test Date: 12/09/2024 LDL Results: 47 Units: mg/dL % Change: +30% ____ P-Comprehensive Metabolic Pa lee (CMP) Reviewed date:12/16/2024 09:31:03 AM Interpretation:Cr 1.12 Performing Lab: Notes/Report: Test performed by [facility] [address] , [address], [place] [address] Abelino Sales MD, Senior Information Systems Architect CLIA: [id number] Sodium 136 135-145 mmol/L Potassium 4.3 3.5-5.3 mmol/L Chloride 97 97-108 mmol/L CO2 27 22-32 mmol/L Glucose 98 65-99 mg/dL BUN 14 8-23 mg/dL Creatinine 1.12 0.50-1.00 mg/dL Calcium 9.4 8.6-10.4 mg/dL eGFR by Creatinine 54 >59 mL/min/1.73m2 Protein 7.3 6.0-8.3 g/dL Albumin 4.5 3.5-5.3 g/dL Alkaline Phosphatase 99 35-121 IU/L ALT (SGPT) 9 <5-47 IU/L AST (SGOT) 12 <5-40 IU/L Bilirubin, Total 0.3 <0.2-1.2 mg/dL A/G Ratio 1.6 1.1-2.5 CBC Venipuncture (in house) Reviewed date:12/16/2024 09:31:39 AM Interpretation: Performing Lab: Notes/Report: wbc 9.3 3.5 - 10 lymph 41.7 15 - 50 mid 6.2 2 - 15 gran 52.1 35 - 80 rbc 4.21 3.5 - 5.5 hgb 12.6 11.5 - 16.5 hct 38.0 35 - 55 mcv 90.3 75 - 100 mch 30.0 25 - 35 mchc 33.3 31 - 38 platlet 272 100 - 400 P-Basic Metabolic Panel (BMP ) Reviewed date:02/27/2025 03:04:01 PM Interpretation:Na 133 Performing Lab: Notes/Report: CLIA: [id number] Abelino Sales MD, Senior Information Systems Architect [address] [facility] , [address], [place] [address] Test performed by [facility], [facility] Sodium 133 135-145 mmol/L Potassium 4.2 3.5-5.3 mmol/L Chloride 97 97-108 mmol/L CO2 25 22-32 mmol/L Glucose 97 65-99 mg/dL BUN 11 8-23 mg/dL Creatinine 0.87 0.50-1.00 mg/dL Calcium 9.4 8.6-10.4 mg/dL eGFR by Creatinine 73 >59 mL/min/1.73m2 CBC Fingerstick (in house) Reviewed date:05/26/2025 08:10:55 [...] - 38 plat 197 100 - 400 Bone density Reviewed date:03/23/2025 04:04:34 PM Interpretation: Performing Lab: Notes/Report: H-Diarrhea 6-11 Panel, Cdiff PCR Reviewed date:01/14/2025 09:24:41 AM Interpretation:Negative Performing Lab: Notes/Report: CAMPYLOBACTER Not Detected NotDetected CLOSTR DIFFICIL Not Detected NotDetected PLESIOMONAS Not Detected NotDetected SALMONELLA, PCR Not Detected NotDetected YERSINIA Not Detected NotDetected VIBRIO, PCR Not Detected NotDetected VIBRIO CHOLERAE Not Detected NotDetected ECOLI (EAEC) Not Detected NotDetected ECOLI (EPEC) Not Detected NotDetected ECOLI (ETEC) Not Detected NotDetected SHIGATOXIN Not Detected NotDetected ECOLI O157 Not Detected NotDetected SHIG-INVAS ECOL Not Detected NotDetected CRYPTO Not Detected NotDetected CYCLOSPORA Not Detected NotDetected EHISTOLYTICA Not Detected NotDetected GIARDIA Not Detected NotDetected ADENO STOOL Not Detected NotDetected ASTROVIRUS Not Detected NotDetected NOROVIRUS Not Detected NotDetected ROTOVIRUS A Not Detected NotDetected SAPOVIRUS Not Detected NotDetected H-BMP Reviewed date:01/14/2025 09:21:21 AM Interpretation: Performing Lab: Notes/Report: NA 131 136-145 mmol/L K 3.2 3.5-5.1 mmoL/L CL 101 98-107 mmol/L CO2 27 22.0-30.0 mmol/L GAP 6.2 5-15 mEq/L BUN 5 7-17 mg/dl Delta: 7 on 01/13/25 CREATT 0.90 0.52-1.04 mg/dl CRCLE 64 50-200 mL/min GFRAA 76 >60 ML/MIN Delta: 60 on 01/13/25 EGFR 63 >60 ml/min GLU 95 74-100 mg/dl CA 8.5 8.4-10.2 mg/dl M-Complete Blood Count Man D if Reviewed date:01/14/2025 09:20:55 AM Interpretation: Performing Lab: Notes/Report: WBC 6.9 4.8-10.8 K/mm3 Delta: 4.8 on 01/13/25 RBC 3.68 4.20-5.40 M/mm3 HGB 11.0 12.2-16.2 g/dL HCT 32.3 37.0-47.0 % MCV 87.8 81-99 fl MCH 29.9 27.0-31.2 pg MCHC 34.1 31.8-35.4 g/dL RDW 13.2 11.5-17.5 % PLT 259 142-424 K/mm3 MPV 10.5 7.4-10.4 fl NE% 54.5 37.0-80.0 % LY% 38.7 10-50 % MO% 5.4 1.7-9.3 % EO% 0.7 0.1-12.0 % BA% 0.6 0.1-2.0 % NE# 3.8 1.8-7.8 K/mm3 LY# 2.7 0.7-4.5 K/mm3 MO# 0.4 0.1-1.0 K/mm3 EO# 0.1 0.0-0.4 Kmm3 BA# 0.0 0-0.2 K/mm3 MDIFF MANUAL DIFFERENTIAL MANUAL DIFF TCC 100 NEUT%M 58 42-76 % LYMPH%M 40 10-50 % MONO%M 2 2-9 % PLTE Normal RM Normal CBC Venipuncture (in house) Reviewed date:03/11/2025 08:24:06 [...] platlet 289 100 - 400 [facility] Reviewed date:03/17/2025 09:46:46 AM Interpretation:esr 43, RF 16 Performing Lab: Notes/Report: CLIA: [id number] Abelino Sales MD, Senior Information Systems Architect [address] [place] [address] , [address], [place] [address] Test performed by [facility], [facility] Erythrocyte Sedimentation Rate (ESR), Automated 43 <31 mm/hr Rheumatoid Factor 16.0 <14.1 IU/mL C-Reactive Protein (CRP) 0.41 <0.50 mg/dL Antinuclear Antibodies (LASHAE) Screen, Reflex LASHAE 9 Panel Negative Negative This test is perform ed by Multiplex Bead Immunoassay methodology. Antinuclear Antibodies (LASHAE) Result Note SEE COMMENT For positive Autoantibodies, please refer to the interpretive chart here: [email or web address] CCP Antibodies <0.5 <0.5-3.0 U/mL P-Uric Acid Reviewed date:03/17/2025 09:47:04 AM Interpretation:7 Performing Lab: Notes/Report: Test performed by [facility], [facility] [address] [facility] , [address], [place] [address] Abelino Sales MD, Senior Information Systems Architect CLIA: [id number] Uric Acid 7.0 2.4-7.0 mg/dL X ray : Knee, left Reviewed date:03/17/2025 09:28:38 AM Interpretation:mild OA Performing Lab: Notes/Report: mild OA X ray : Knee, right Reviewed date:03/17/2025 09:27:38 AM Interpretation:mild OA Performing Lab: Notes/Report: mild OA X ray : Shoulder, right Reviewed date:03/17/2025 09:29:22 AM Interpretation:mild DJD Performing Lab: Notes/Report: mild DJD Medications Medication SIG (Take, Route, Frequency, Duration) Notes Start Date End Date Status Fluticasone Propionate 50 MCG/ACT SHAKE LIQUID AND USE 1 SPRAY IN EACH NOSTRIL TWICE DAILY; Duration: 90 Active Ofloxacin 0.3 % 10 drops into affect ed ear Otic Once a day Active Triamcinolone Acetonide 0.1 % 1 application do not rinse afterwards and avoid eating or drinking for 30 minutes Mouth/Throat Twice a day; Duration: 14 days 07/04/2025 Active Potassium Chloride ER 20 MEQ 1 tablet with food Orally Once a day; Duration: 90 days 02/13/2025 Active Debrox 6.5 % 5 drops into affecte d ear Otic Twice a day; Duration: 30 days 03/10/2025 Not-Taking Metoprolol Tartrate 100 MG TAKE 1 TABLET BY MOUTH TWICE A DAY Orally Twice a day; Duration: 60 days Active Omeprazole 20 MG 1 cap(s) orally once a day; Duration: 90 days Active Estradiol 0.5 MG 1 tablet Orally Once a day; Duration: 90 days Active Lisinopril-hydroCHLOROthi azide 20-12.5 MG 1 tablet Orally Once a day; Duration: 90 days Active Nystatin 803545 UNIT/ML 4 mL Mouth/Throa t Four times a day; Duration: 14 days 06/17/2025 Active Loratadine 10 MG TAKE 1 TABLET BY TRISTAN DAILY; Duration: 90 Active Allopurinol 100 MG 1 tablet Orally Once a day Active amLODIPine Besylate 5 MG 1 tablet Orally Once a day; Duration: 90 days Active Levothyroxine Sodium 50 MCG 1 tab(s) orally once a day; Duration: 90 days Active Voltaren Arthritis Pain 1 % apply to knee and shoulder Externally 3 times a day; Duration: 90 days 03/24/2025 Active Aspirin 81 MG 1 TAB ONCE A DAY 01/06/2012 Active Rosuvastatin Calcium 20 MG 1 tablet Orally Once a day; Duration: 90 days Active Vitamin D3 50 MCG (2000 UT) 1 cap(s) orally twice a day Active Meloxicam 15 MG 1 tablet Orally anders y; Duration: 90 days 03/10/2025 Active Immunizations Vaccine Route Administration Date Status Comme nts Prevnar (PCV20) IM Intramuscular 12/09/2024 Administered COVID 19 Pfizer Unknown 03/09/2021 Administered COVID 19 Pfizer Unknown 04/01/2021 Administered Problems Problem Type SNOMED Code ICD Code Onset Dates Problem Status W/U Status Risk Notes Problem Gastroesophageal reflux disease (488381452) GERD (gastroesophageal reflux disease) (K21.9) Active confirmed Problem Hypertension (61301085) HTN (hypertension) (I10) Active confirmed Problem Hypothyroidism (70683559) Hypothyroidism (acquired) (E03.9) Active confirmed Problem Menopausal and postmenopausal disorder (N95.9) Active confirmed Problem Osteopenia (312590311) Osteopenia (M85.80) Active confirmed Problem Seasonal allergy (375991395) Seasonal allergies (J30.2) Active confirmed Problem Arthritis (6208947) Arthritis (M19.90) Active confirmed Problem Environmental allergy (715247922) Environmental allergies (Z91.048) Active confirmed Problem Acute otitis externa of right ear (2108203770866842) Acute otitis externa of right ear (H60.91) Active confirmed Problem Chronic sinusitis (06616154) Other chronic sinusitis (J32.8) Active confirmed Problem Low back pain (760691198) Low back pain associated with a spinal disorder other than radiculopathy or spinal stenosis (M54.5) Active confirmed Problem Lumbosacral spondylosis without myelopathy (30515603) Lumbosacral radiculopathy due to degenerative joint disease of spine (M47.27) Active confirmed Problem History of cholecystectomy (344695629) Status post cholecystectomy (Z90.49) Active confirmed Problem Gastroesophageal reflux disease (disorder) (376367035) Chronic GERD (K21.9) Active confirmed Problem Allergic rhinitis (70757630) Allergic rhinitis (J30.9) Active confirmed Problem Bicuspid aortic valve (24010798) Bicuspid aortic valve (Q23.1) Active confirmed Problem Mitral valve prolapse (264409670) Mitral valve prolapse (I34.1) Active confirmed Problem Dyslipidemia (238076470) Dyslipidemia (E78.5) Active confirmed Problem Acquired spondylolisthesis (154124160) Anterolisthesis (M43.10) Active confirmed Problem Seasonal allergic rhinitis (966493492) Seasonal allergic rhinitis, unspecified allergic rhinitis trigger (J30.2) Active confirmed Problem Allergic rhinitis (06047789) Seasonal allergic rhinitis due to other allergic trigger (J30.89) Active confirmed Problem Radiculopathy (15000912) Back pain with left-sided radiculopathy (M54.10) Active confirmed Problem Abnormal x-ray o f lumbar spine (R93.7) Active confirmed Problem Sciatica (41980781) Right sciati c nerve pain (M54.31) Active confirmed Problem Thyromegaly (6698967) Thyromegaly (E01.0) Active confirmed Problem Allergic rhinitis (80837043) Acute allergic rhinitis (J30.9) Active confirmed Vital Signs Heart Rate 52 /min 06/02/2025 Blood pressure diastolic 70 mm Hg 06/02/2025 Height 63 in 06/02/2025 Blood pressure systolic 132 mm Hg 06/02/2025 Weight 162.8 lbs 06/02/2025 BMI 28.84 kg/m2 06/02/2025 Encounters Encounter Location Date Provider Diagnosis [facility] [address] [place] [id number] 12/09/2024 Ca Carvalho HTN (hypertension) I 10 ; Hypothyroidism (acquired) E03.9 ; Bicuspid aortic valve Q23.1 ; Dyslipidemia E78.5 ; Back pain with left-sided radiculopathy M54.10 ; Menopausal and postmenopausal disorder N95.9 ; Seasonal allergies J30.2 ; GERD (gastroesophageal reflux disease) K21.9 and Encounter for immunization Z23 [facility] [address] [place] [id number] 12/24/2024 Giuseppe Chavez Right sciatic nerve pain M54.31 ; Renal insufficiency N28.9 ; Hypothyroidism (acquired) E03.9 ; HTN (hypertension) I10 and BMI 29.0-29.9,adult Z68.29 [facility] [address] [place] [id number] 01/09/2025 Gwen Mendieta Dysuria R30.0 and Generalized abdominal pain R10.84 [facility] [address] [place] [id number] 01/29/2025 Gwentiffany Mendieta Acute cholecystitis K81.0 and Status post cholecystectomy Z90.49 [facility] [address] [place] [id number] 02/20/2025 Gwen Mendieta HTN (hypertension) I 10 ; Pain in right knee M25.561 ; Pain in left knee M25.562 ; Hypokalemia E87.6 and BMI 28.0-28.9,adult Z68.28 [facility] [address] [place] [id number] 03/10/2025 Ca Carvalho Knee pain, right M25 .561 ; Knee pain, left M25.562 ; Pain in right shoulder M25.511 ; Cerumen impaction H61.20 ; Arthritis M19.90 and BMI 29.0-29.9,adult Z68.29 [facility] [address] [facility] [address] [place] [id number] 03/24/2025 Ca Carvalho Acute pain of right knee M25.561 and BMI 29.0-29.9,adult Z68.29 [facility] [address] [place] [id number] 04/28/2025 Ca Carvalho Excessive cerumen in left ear canal H61.22 ; Acute otitis externa of right ear H60.91 and BMI 28.0-28.9,adult Z68.28 [facility] [address] [place] [id number] 05/13/2025 R Urbano Chavez Acute sinusitis J01. 90 and Eustachian tube dysfunction H69.80 [facility] [address] [place], [place] [id number] 05/26/2025 Ca Deven Acute otitis externa of right ear H60.91 and BMI 28.0-28.9,adult Z68.28 [facility] [address] [place], [place] [id number] 06/02/2025 Ca Deven HTN (hypertension) I 10 ; Hypothyroidism (acquired) E03.9 ; Acute otitis externa of right ear H60.91 ; TMJ (sprain of temporomandibular joint), initial encounter S03.40XA ; Chronic GERD K21.9 and BMI 28.0-28.9,adult Z68.28 [facility] [address] [place], [place] [id number] 12/16/2024 Ca Carvalho [facility] [address] [place], [place] [id number] 01/10/2025 R Urbano Kathy [facility] [address] [place], [place] [id number] 01/16/2025 R Urbano Kathy [facility] [address] [place], [place] [id number] 02/13/2025 R Urbnao Kathy [facility] [address] [place] [id number] 02/17/2025 R Urbano Kathy [facility] [address] [place] [id number] 03/03/2025 R Urbano Kathy Screening for osteoporosis Z13.820 [facility] [address] [place] [id number] 03/04/2025 R Urbano Kathy [facility] [address] [place] [id number] 03/17/2025 R Urbano Kathy [facility] [address] [place] [id number] 03/23/2025 R Urbano Kathy [facility] [address] [place] [id number] 03/24/2025 R Urbano Kathy [facility] [address] [place], [place] [id number] 03/25/2025 R Urbano Kathy [facility] [address] [place] [id number] 04/08/2025 R Urbano Kathy [facility] [address] [place], [place] [id number] 04/29/2025 Ca Carvalho Acute otitis externa of right ear H60.91 [facility] [address] [place], [place] [id number] 04/30/2025 R Urbano Kathy [facility] [address] [place], [place] [id number] 05/15/2025 R Urbano Kathy [facility] [address] [place] [id number] 05/22/2025 R Urbano Kathy [facility] [address] [place], [place] [id number] 06/09/2025 R Urbano Kathy [facility] [address] [place], [place] [id number] 06/17/2025 Ca Carvalho [facility] [address] [place], [place] [id number] 06/17/2025 R Urbano Kathy Encounter for screen ing mammogram for breast cancer Z12.31 [facility] [address] [place], [place] [id number] 07/04/2025 Ca Carvalho Assessments Encounter Date Diagnosis (ICD Code) Assessment Notes Treatment Notes Treatment Clinical Notes Section Notes 12/09/2024 HTN (hypertension) (ICD-10 - I10) 12/09/2024 Hypothyroidism (acquired) (ICD-10 - E03.9) 12/24/2024 Right sciatic nerve pain (ICD-10 - M54.31) 01/09/2025 Generalized abdomina l pain (ICD-10 - R10.84) If pain worsens, will go to the ER for a CT scan. 01/09/2025 Dysuria (ICD-10 - R30.0) 01/29/2025 Acute cholecystitis (ICD-10 - K81.0) Patient is doing well post surgery. She has seen Dr. Aaron and he has given her restrictions. She is going to finish the flagyl and levaquin. 01/29/2025 Status post cholecystectomy (ICD-10 - Z90.49) 02/20/2025 HTN (hypertension) (ICD-10 - I10) o 02/20/2025 Pain in right knee (ICD-10 - M25.561) o 12/24/2024 Renal insufficiency (ICD-10 - N28.9) Will plan to repeat BMP in 3 weeks 03/03/2025 Screening for osteoporosis (ICD-10 - Z13.820) 03/10/2025 Knee pain, right (ICD-10 - M25.561) Since she continues to endorse knee pain, we will go ahead and get some xrays to look for any trauma or arthritic changes. 03/10/2025 Knee pain, left (ICD-10 - M25.562) 04/29/2025 Acute otitis externa of right ear (ICD-10 - H60.91) 05/13/2025 Acute sinusitis (ICD-10 - J01.90) 05/13/2025 Eustachian tube dysfunction (ICD-10 - H69.80) 05/26/2025 Acute otitis externa of right ear (ICD-10 - H60.91) to keep ear dry; dry heat to area prn pain 05/26/2025 BMI 28.0-28.9,adult (ICD-10 - Z68.28) 06/02/2025 HTN (hypertension) (ICD-10 - I10) 06/02/2025 Hypothyroidism (acquired) (ICD-10 - E03.9) 06/02/2025 Acute otitis externa of right ear (ICD-10 - H60.91) to keep ear dry; dry heat to area prn pain 03/24/2025 BMI 29.0-29.9,adult (ICD-10 - Z68.29) 03/24/2025 Acute pain of right knee (ICD-10 - M25.561) We discussed to continue the Meloxicam and she can have tylenol as needed for pain. 1 tablet 500mg should be enough. We will send in a rx for Voltaren gel she is to massage this in for knees and it should help with the pain. presented PT and she is not interested 04/28/2025 Acute otitis externa of right ear (ICD-10 - H60.91) to keep ear dry; med bid; dry heat application to that side prn pain 04/28/2025 Excessive cerumen in left ear canal (ICD-10 - H61.22) to use ear gtts in the left ear for 2-3 days as well 06/17/2025 Encounter for screening mammogram for breast cancer (ICD-10 - Z12.31) 12/24/2024 Hypothyroidism (acquired) (ICD-10 - E03.9) 06/02/2025 TMJ (sprain of temporomandibular joint), initial encounter (ICD-10 - S03.40XA) avoid chewing gum or hard foods 04/28/2025 BMI 28.0-28.9,adult (ICD-10 - Z68.28) 03/10/2025 Pain in right shoulder (ICD-10 - M25.511) We will x-ray her shoulder to make sure there is no injury. Suspect this is arthritic related, but will rule out trauma. Take Meloxicam as needed to help with inflammatory response. No steroid pack today as she just got off of steroids and recent surgery. 02/20/2025 Pain in left knee (ICD-10 - M25.562) o 12/09/2024 Bicuspid aortic valv e (ICD-10 - Q23.1) 12/09/2024 Dyslipidemia (ICD-10 - E78.5) 12/24/2024 HTN (hypertension) (ICD-10 - I10) 02/20/2025 Hypokalemia (ICD-10 - E87.6) o 03/10/2025 Cerumen impaction (ICD-10 - H61.20) Take as needed it will help wiht her wax buildup in her ears. 06/02/2025 Chronic GERD (ICD-10 - K21.9) 06/02/2025 BMI 28.0-28.9,adult (ICD-10 - Z68.28) 03/10/2025 Arthritis (ICD-10 - M19.90) Arthritis panel [...] the burden for her back ad knees. 12/24/2024 BMI 29.0-29.9,adult (ICD-10 - Z68.29) 02/20/2025 BMI 28.0-28.9,adult (ICD-10 - Z68.28) o 12/09/2024 Back pain with left-sided radiculopathy (ICD-10 - M54.10) 12/09/2024 Menopausal and postmenopausal disorder (ICD-10 - N95.9) 03/10/2025 BMI 29.0-29.9,adult (ICD-10 - Z68.29) 12/09/2024 Seasonal allergies (ICD-10 - J30.2) 12/09/2024 GERD (gastroesophageal reflux disease) (ICD-10 - K21.9) 12/09/2024 Encounter for immunization (ICD-10 - Z23) 12/09/2024 Other declines colon studies; has annual mammogram and eye MD appt; will do bone density next year 01/29/2025 Other Discharge summary with available lab/diagnostic imaging results obtained and reviewed. Discharge medication list reconciled. Appropriate counseling provided. Moderate Complexity Plan Of Treatment Pending Test Test Name Order Date Mammogram 07/23/2025 Insurance Providers Payer Name Payer Address Payer Phone Subscriber Number Group Number Insured Name Patient Relationship to Insured Coverage Start Date Coverage End Date MEDICARE PART B [address] [address] [place] [address] [id number] STANLEY STEINER Self - patient is the insured [facility] [address] [place], [place] [id number] HOLLEY Self - patient is the insured Medications Administered Medication Instructions Date of Administration Dosage Notes Depo- Medrol 40 mg/ml 08/09/2018 1.5 mL Dexamethasone 09/28/2016 1 mL Dexamethasone 05/16/2017 1 mL Medical (General) History Medical History History ICD Code Hypertension MVP with Mild Regurgitation Bicuspid Aortic Valve, Echo 10/2005 DPT, 03/28/[address], Normal 06/07/2009 Eevated Sed Rate, 2008 Hypothyroidism GERD DDD/DJD of lumbar spine Surgical History Surgery Date(Month/Year) Partial Hysterectomy 1995 Cholecystectomy - Dr. Aaron 01/2025 Hospitalization History Reason Date(Month/Year) [facility] - Nausea, Vomiting and Diarrhea 0 01/2025 Nausea, Vomiting, and Diarrhea - [facility] 02/07/2024 High B/P- [facility] 01/07/2021 Chest Pain- [facility] 09/18/2013 Trigonitis, Urethral Dilatation, Dr. Koch ins 03/01/2011 Dehydration- [facility] 02/28/2010 Slipped and Fell- [facility] 06/07/2009
== END 2025-08-13 23:59 | disposition home or self-care (01) ==
LOC: RAD 14:25
PROVIDERS: PCP Family Medicine; Visit Provider Family Medicine
DX: Z12.31 Encounter for screening mammogram for malignant neoplasm of breast (principal); R92.323 Mammographic fibroglandular density, bilateral breasts
CPT/HCPCS: 77063; 77067